=== PATIENT | male | born 1995 | race Caucasian/White ===

== ENCOUNTER 2019-07-29 16:27 | Emergency (ER) | payer SELFPAY ==
--- NOTE | 2019-07-29 17:08 | EKG ---
Test Date: 2019-07-29 Test Time: 16:41:40 Stage Settings Painter: ANDREW MEASUREMENT RESULTS: Intervals: Rate: 54 TN: 146 QRSD: 94 QT: 414 QTc: 392 [place]: P: 28 TN: 146 QRS: 58 T: 54 INTERPRETIVE STATEMENTS: Sinus bradycardia with sinus arrhythmia Otherwise normal ECG Compared to ECG 05/03/2016 06:52:58 Sinus rhythm no longer present Atrial premature complex(es) no longer present Aberrant conduction of supraventricular beat(s) no longer present Electronically Signed On 07-29-19 17:07:22 CDT by Colt Gordon
[2019-07-29 17:41] LABS: Basophils % 1.1 % (0-1.3); Hematocrit 44.8 % (39.6-49.0); Lymphocytes % 29.2 % (15.3-44.8); MPV 8.5 fL (7.6-11.3); RBC Red Blood Cell Count 5.08 M/uL (4.33-5.43)
[2019-07-29 17:42] LABS: Protime INR 1.04
[2019-07-29 18:03] LABS: ALT/SGPT 45 U/L (12-78); AST/SGOT 20 U/L (15-37); Albumin 4.7 g/dL (3.4-5.0); Alkaline Phosphatase 102 U/L (45-117); BUN Blood Urea Nitrogen 11 mg/dL (7-18); Bicarbonate 28 mmol/L (21-32); Bilirubin Direct 0.1 mg/dL (0-0.2); Bilirubin Total 0.4 mg/dL (0.2-1.0); Glucose Level 113 mg/dL (74-106); Magnesium 2.2 mg/dL (1.8-2.4); NT PRO-BNP 8 pg/mL (<125); Potassium 3.5 mmol/L (3.5-5.1); Sodium Level 141 mmol/L (136-145); Troponin (Emerg Dept Use Only) < 0.02 ng/mL (0.0-0.045)
--- NOTE | 2019-07-29 18:05 | RAD REPORT ---
EXAM DESCRIPTION: RAD - Chest Single View - 07/29/2019 5:05 pm CLINICAL HISTORY: Chest pain COMPARISON: None. TECHNIQUE: AP portable chest image was obtained 1700 hours . FINDINGS: Lungs are clear. Heart and vasculature are normal. No measurable pleural effusion and no p neumothorax. No acute bony abnormality seen. No acute aortic findings suspected. IMPRESSION: No acute cardiopulmonary process.
--- NOTE | 2019-07-29 18:26 | EDPHYS ---
Physician Documentation [facility] Name: Ray Malcolm Age: 24 yrs Sex: Male : 1995 Arrival Date: 07/29/2019 Time: 16:31 Bed 25 Private MD: None, None ED Physician Hany Calles HPI: 07/29 18:23 This 24 yrs old Male presents to ER via Ambulatory with complaints of Chest ma2 Pain. 18:23 The patient or guardian reports chest pain that is located primarily in the anterior ma2 chest wall, left. The pain does not radiate. Associated signs and symptoms: Pertinent negatives: cough, dizziness, lower extremity swelling, nausea, shortness of breath, syncope, vomiting. The chest pain is described as aching. Duration: The patient or guardian reports a single episode, constant lasted for 3 days . Severity of pain: At its worst the pain was moderate in the emergency department the pain is unchanged. Historical: - Allergies: 16:39 No Known Allergies; la1 - PMHx: 16:39 None; la1 - Immunization history:: Adult Immunizations up to date. - Social history:: Smoking status: Patient uses tobacco products, smokes one pack cigarettes per day. Patient/guardian denies using alcohol, street drugs, The patient lives with family. - Ebola Screening: : No symptoms or risks identified at this time. - Family history:: not pertinent. ROS: 18:23 Constitutional: Negative for fever, chills, and weight loss. ma2 18:23 All other systems are negative. Exam: 18:23 Constitutional: This is a well developed, well nourished patient who is awake, alert, ma2 and in no acute distress. ENT: Nares patent. No nasal discharge, no septal abnormalities noted. Tympanic membranes are normal and external auditory canals are clear. Oropharynx with no redness, swelling, or masses, exudates, or evidence of obstruction, uvula midline. Mucous membranes moist. Neck: Trachea midline, no thyromegaly or masses palpated, and no cervical lymphadenopathy. Supple, full range of motion without nuchal rigidity, or vertebral point tenderness. No Meningismus. Chest/axilla: reproducible chest pain and tenderness Normal chest wall appearance and motion. Nontender with no deformity. No lesions are appreciated. Cardiovascular: Regular rate and rhythm with a normal S1 and S2. No gallops, murmurs, or rubs. Normal PMI, no JVD. No pulse deficits. Respiratory: Lungs have equal breath sounds bilaterally, clear to auscultation and percussion. No rales, rhonchi or wheezes noted. No increased work of breathing, no retractions or nasal flaring. Abdomen/GI: Soft, non-tender, with normal bowel sounds. No distension or tympany. No guarding or rebound. No evidence of tenderness throughout. Vital Signs: 16:39 BP 138 / 81; Pulse 83; Resp 16; Temp 98.4; Pulse Ox 100% on R/A; Weight 97.52 kg; la1 Height 5 ft. 2 in. (157.48 cm); 17:30 BP 122 / 67; Pulse 72; Resp 18; Pulse Ox 100% on R/A; aj1 18:30 BP 117 / 81; Pulse 68; Resp 18; Pulse Ox 99% on R/A; aj1 16:39 Body Mass Index 39.32 (97.52 kg, 157.48 cm) la1 MDM: 16:42 Patient medically screened. ma2 18:23 Differential diagnosis: anxiety, chest wall pain, gastritis. Data reviewed: vital ma2 signs, nurses notes, diagnostic data from outside facility. Counseling: I had a detailed discussion with the patient and/or guardian regarding: the historical points, exam findings, and any diagnostic results supporting the discharge/admit diagnosis, the presence of at least one elevated blood pressure reading (>120/80) during this emergency department visit, the need for outpatient follow up. 07/29 16:42 Order name: Basic Metabolic Panel; Complete Time: 18:23 ma2 07/29 16:42 Order name: CBC with Diff; Complete Time: 17:56 ma2 07/29 16:42 Order name: LFT's; Complete Time: 18:23 ma2 07/29 16:42 Order name: Magnesium; Complete Time: 18:23 ma2 07/29 16:42 Order name: NT PRO-BNP; Complete Time: 18:23 ma2 07/29 16:42 Order name: PT-INR; Complete Time: 17:56 ma2 07/29 16:42 Order name: Troponin (emerg Dept Use Only); Complete Time: 18:23 ma2 07/29 16:42 Order name: XRAY Chest (1 view); Complete Time: 18:23 ma2 07/29 16:42 Order name: EKG; Complete Time: 16:43 ma2 07/29 16:42 Order name: Cardiac monitoring; Complete Time: 17:24 ma2 07/29 16:42 Order name: EKG - Nurse/Tech; Complete Time: 17:24 ma2 07/29 16:42 Order name: IV Saline Lock; Complete Time: 17:24 ma2 07/29 16:42 Order name: Labs collected and sent; Complete Time: 17:24 ma2 07/29 16:42 Order name: O2 Per Protocol; Complete Time: 17:24 ma2 07/29 16:42 Order name: O2 Sat Monitoring; Complete Time: 17:24 ma2 Administered Medications: No medications were administered Disposition: 07/29/19 18:25 Discharged to Home. Impression: Chest pain, unspecified. - Condition is Stable. - Discharge Instructions: Nonspecific Chest Pain. - Prescriptions for Tylenol- Codeine #3 300-30 mg Oral Tablet - take 2 tablet by ORAL route every 6 hours As needed; 30 tablet. - Work release form, Medication Reconciliation Form, Thank You Letter, Antibiotic Education, Prescription Opioid Use form. - Follow up: Private Physician; When: Tomorrow; Reason: Continuance of care. Signatures: Dispatcher [employer] Merlene Nieves RN RN aj1 Tonio Baron RN RN la1 Hany Calles MD MD ma2 Corrections: (The following items were deleted from the chart) 19:19 18:25 07/29/2019 18:25 Discharged to Home. Impression: Chest pain, unspecified. aj1 Condition is Stable. Forms are Medication Reconciliation Form, Thank You Letter, Antibiotic Education, Prescription Opioid Use. Follow up: Private Physician; When: Tomorrow; Reason: Continuance of care. ma2
--- NOTE | 2019-07-29 18:26 | ER ---
Nurse's Notes [facility] Name: Ray Malcolm Age: 24 yrs Sex: Male : 1995 Arrival Date: 07/29/2019 Time: 16:31 Bed 25 Private MD: None, None Diagnosis: Chest pain, unspecified Presentation: 07/29 16:38 Presenting complaint: Patient states: Dull chest pain since this morning. Transition of la1 care: patient was not received from another setting of care. Onset of symptoms was July 29, 2019. Risk Assessment: Do you want to hurt yourself or someone else? Patient reports no desire to harm self or others. Initial Sepsis Screen: Does the patient meet any 2 criteria? No. Patient's initial sepsis screen is negative. Does the patient have a suspected source of infection? No. Patient's initial sepsis screen is negative. Care prior to arrival: None. 16:38 Method Of Arrival: Ambulatory la1 16:38 Acuity: CJ 3 la1 Historical: - Allergies: 16:39 No Known Allergies; la1 - PMHx: 16:39 None; la1 - Immunization history:: Adult Immunizations up to date. - Social history:: Smoking status: Patient uses tobacco products, smokes one pack cigarettes per day. Patient/guardian denies using alcohol, street drugs, The patient lives with family. - Ebola Screening: : No symptoms or risks identified at this time. - Family history:: not pertinent. Screenin:00 Abuse screen: Denies threats or abuse. Denies injuries from another. Nutritional aj1 screening: No deficits noted. Tuberculosis screening: No symptoms or risk factors identified. 19:18 Fall Risk None identified. aj1 Assessment: 17:00 General: Appears in no apparent distress. comfortable, Behavior is calm, cooperative, aj1 appropriate for age. Pain: Complains of pain in anterior aspect of left upper chest Pain does not radiate. Pain currently is 5 out of 10 on a pain scale. Quality of pain is described as aching, Pain began 4 months ago. Neuro: Level of Consciousness is awake, alert, obeys commands, Oriented to person, place, time, situation. Cardiovascular: Reports chest pain, Patient's skin is warm and dry. Rhythm is sinus rhythm. Respiratory: Airway is patent Respiratory effort is even, unlabored, Respiratory pattern is regular, symmetrical. GI: No signs and/or symptoms were reported involving the gastrointestinal system. : No signs and/or symptoms were reported regarding the genitourinary system. EENT: No signs and/or symptoms were reported regarding the EENT system. Derm: No signs and/or symptoms reported regarding the dermatologic system. Skin is pink, warm \T\ dry. normal. Musculoskeletal: No signs and/or symptoms reported regarding the musculoskeletal system. Circulation, motion, and sensation intact. 18:00 Reassessment: Patient appears in no apparent distress at this time. No changes from aj1 previously documented assessment. Patient and/or family updated on plan of care and expected duration. Pain level reassessed. Patient is alert, oriented x 3, equal unlabored respirations, skin warm/dry/pink. 19:00 Reassessment: Patient appears in no apparent distress at this time. No changes from aj1 previously documented assessment. Patient and/or family updated on plan of care and expected duration. Pain level reassessed. Patient is alert, oriented x 3, equal unlabored respirations, skin warm/dry/pink. Vital Signs: 16:39 BP 138 / 81; Pulse 83; Resp 16; Temp 98.4; Pulse Ox 100% on R/A; Weight 97.52 kg; la1 Height 5 ft. 2 in. (157.48 cm); 17:30 BP 122 / 67; Pulse 72; Resp 18; Pulse Ox 100% on R/A; aj1 18:30 BP 117 / 81; Pulse 68; Resp 18; Pulse Ox 99% on R/A; aj1 16:39 Body Mass Index 39.32 (97.52 kg, 157.48 cm) la1 ED Course: 16:31 Patient arrived in ED. mr 16:31 None, None is Private Physician. mr 16:38 Triage completed. la1 16:39 Arm band placed on left wrist. la1 16:42 Hany Calles MD is Attending Physician. ma2 16:45 Merlene Fry, FERNANDO is Primary Nurse. aj1 16:51 EKG done, by drug abuse technician. reviewed by Hany Calles MD. sm3 17:00 Patient has correct armband on for positive identification. court recording monitor on. Pulse aj1 ox on. NIBP on. 17:00 No provider procedures requiring assistance completed. Inserted saline lock: 20 gauge aj1 in right antecubital area, using aseptic technique. Blood collected. Patient maintains SpO2 saturation greater than 95% on room air. 17:03 XRAY Chest (1 view) In Process Unspecified. EDMS 19:18 IV discontinued, intact, bleeding controlled, No redness/swelling at site. Pressure aj1 dressing applied. Administered Medications: No medications were administered Outcome: 18:25 Discharge ordered by . joe 19:18 Discharged to home ambulatory. aj1 19:18 Condition: good 19:18 Discharge instructions given to patient, Instructed on discharge instructions, follow up and referral plans. no drinking with medication, no driving heavy equipment, medication usage, Demonstrated understanding of instructions, follow-up care, medications, Prescriptions given X 1. 19:19 Patient left the ED. aj1 Signatures: Dispatcher [employer] EDMS Merlene Fry, RN RN autumn1 Chela Barnes, FERNANDO Elizalde RN, Mohammad, MD MD ma2 Fariba Davalos 3
[2019-07-29 19:25] VITALS: TEMP 98.4
[2019-07-29 19:28] VITALS: BP 117/81; O2SAT 99
== END 2019-07-29 19:19 | disposition home or self-care (01) ==
LOC: ER 16:27
DX: R07.9 Chest pain, unspecified (principal); F17.210 Nicotine dependence, cigarettes, uncomplicated
CPT/HCPCS: 36415; 71045; 80048; 80076; 83735; 83880; 84484; 85025; 85610; 93005; 99285

== ENCOUNTER 2019-08-06 01:00 | Emergency (ER) | payer SELFPAY ==
--- NOTE | 2019-08-06 02:08 | EDPHYS ---
Physician Documentation [facility] Name: Ray Malcolm Age: 24 yrs Sex: Male : 1995 Arrival Date: 08/06/2019 Time: 01:02 Bed 6 Private MD: ED Physician Froylan Burgos HPI: 08/06 01:17 This 24 yrs old Male presents to ER via Law Enforcement with complaints of rn Chest Pain. 01:17 The patient or guardian reports chest pain that is located primarily in the anterior rn chest wall, left. The pain does not radiate. Associated signs and symptoms: Pertinent negatives: abdominal pain, cough, diaphoresis, dizziness, headache, palpitations, recent travel, syncope, vomiting. The chest pain is described as sharp, stabbing. Duration: The patient or guardian reports multiple episodes, that are intermittent, the episodes last approximately 5 minute(s). Modifying factors: The symptoms are alleviated by nothing. the symptoms are aggravated by movement, palpation of area. Severity of pain: At its worst the pain was mild in the emergency department the pain has improved. The patient has experienced similar episodes in the past. Reports on and off chest pain for about 8 months, has had multiple cardiac w/u, but does not f/u with cardiology. Today was being arrested on warrants per report, and complained of chest pain. Patient states not sure if hurt himself throwing out large tub by himself or moving sheets of plywood by himself. Denies direct trauma. No fever/cough. Reports sob, but feels like may be because he is upset. No abd pain/vomiting/diarrhea/blood in stool. . Historical: - Allergies: 01:07 No Known Allergies; fc - Home Meds: 01:07 acetaminophen-codeine 300-30 mg Oral tab 1 tab q6hrs prn [Active]; fc - PMHx: 01:07 chest pain; fc - PSHx: 01:07 None; fc - Immunization history:: Last tetanus immunization: up to date Flu vaccine is not up to date. Patient has never been vaccinated. - Social history:: Smoking status: Patient uses tobacco products, smokes two packs cigarettes per day. Patient uses alcohol, occasionally. Patient/guardian denies using street drugs. - Ebola Screening: : Patient negative for fever greater than or equal to 101.5 degrees Fahrenheit, and additional compatible Ebola Virus Disease symptoms Patient denies exposure to infectious person Patient denies travel to an Ebola-affected area in the 21 days before illness onset. - Family history:: pertinent for heart disease. - Hospitalizations: : No recent hospitalization is reported. ROS: 01:17 Constitutional: Negative for fever, chills, and weight loss, Eyes: Negative for injury, rn pain, redness, and discharge, Neck: Negative for injury, pain, and swelling, Cardiovascular: Negative for palpitations, and edema, Respiratory: Negative for shortness of breath, cough, wheezing, and pleuritic chest pain, Abdomen/GI: Negative for abdominal pain, nausea, vomiting, diarrhea, and constipation, Back: Negative for injury and pain, MS/Extremity: Negative for injury and deformity, Skin: Negative for injury, rash, and discoloration, Neuro: Negative for headache, weakness, numbness, tingling, and seizure. Exam: 01:17 Constitutional: This is a well developed, well nourished patient who is awake, alert, rn and in no acute distress. Speaking full sentences and sitting reclined with legs crossed. Head/Face: Normocephalic, atraumatic. Eyes: Pupils equal round and reactive to light, extra-ocular motions intact. Lids and lashes normal. Conjunctiva and sclera are non-icteric and not injected. Cornea within normal limits. Periorbital areas with no swelling, redness, or edema. ENT: MMM Cardiovascular: Regular rate and rhythm with a normal S1 and S2. No gallops, murmurs, or rubs. No pulse deficits. Respiratory: Lungs have equal breath sounds bilaterally, clear to auscultation and percussion. No wheezes noted. No increased work of breathing, no retractions or nasal flaring. Abdomen/GI: soft, non-tender MS/ Extremity: Pulses equal, no cyanosis. Neurovascular intact. Full, normal range of motion. Equal circumference. Neuro: Awake and alert, GCS 15, oriented to person, place, time, and situation. Cranial nerves II-XII grossly intact. Motor strength 5/5 in all extremities. Sensory grossly intact. Cerebellar exam normal. 01:21 ECG was reviewed by the Attending Physician. rn Vital Signs: 01:00 BP 128 / 76; Pulse 92; Resp 18; Temp 99.4(O); Pulse Ox 99% on R/A; Weight 95.25 kg (R); fc Height 5 ft. 7 in. (170.18 cm) (R); Pain 8/10; 02:30 BP 132 / 78; Pulse 90; Resp 16; Pulse Ox 100% on R/A; ao 01:00 Body Mass Index 32.89 (95.25 kg, 170.18 cm) fc MDM: 01:08 Patient medically screened. rn 02:06 Differential diagnosis: anxiety, chest wall pain, costochondritis, pericarditis, rn pleurisy, pneumothorax. Data reviewed: vital signs, nurses notes, EKG, radiologic studies, plain films, and as a result, I will discharge patient. Test interpretation: by ED physician or midlevel provider: ECG, plain radiologic studies, CXR neg for pneumothorax or acute infiltrate. Counseling: I had a detailed discussion with the patient and/or guardian regarding: the historical points, exam findings, and any diagnostic results supporting the discharge/admit diagnosis, radiology results, the need for outpatient follow up, to return to the emergency department if symptoms worsen or persist or if there are any questions or concerns that arise at home. Special discussion: Based on the patient's history, exam, and Dx evaluation, there is no indication for emergent intervention or inpatient Tx. It is understood by the patient/guardian that if the Sx's persist or worsen they need to return immediately for re-evaluation. I discussed with the patient/guardian in detail that at this point there is no indication for admission to the hospital. It is understood, however, that if the symptoms persist or worsen the patient needs to return immediately for re-evaluation. 08/06 01:17 Order name: XRAY Chest (1 view) rn 08/06 01:17 Order name: EKG; Complete Time: rn 08/06 01:17 Order name: EKG - Nurse/Tech; Complete Time: :39 rn EC:21 Rate is 113 beats/min. Rhythm is regular. QRS [place] is Normal. MO interval is normal. rn QRS interval is normal. QT interval is normal. No Q waves. T waves are Normal. No ST changes noted. Clinical impression: Sinus tachycardia. Interpreted by me. Reviewed by me. Administered Medications: 02:35 Not Given (Duplicate Order): TORadol - Ketorolac 15 mg IM once ao 02:35 Drug: TORadol - Ketorolac 15 mg {Note: Verbal order by Dr Burgos to do IV.} Route: IVP; ao Site: right forearm; 02:42 Follow up: Response: No adverse reaction ao Disposition: 08/06/19 02:06 Discharged to Home. Impression: Chest pain, unspecified. - Condition is Stable. - Discharge Instructions: Nonspecific Chest Pain, Pain Without a Known Cause. - Medication Reconciliation Form, Thank You Letter, Antibiotic Education, Prescription Opioid Use form. - Follow up: Private Physician; When: As needed; Reason: Recheck today's complaints, Re-evaluation by your physician. - Problem is an ongoing problem. - Symptoms have improved. Signatures: Dispatcher [employer] EDFatmata London RN RN fc Nieto, Roman, MD MD rn Ortiz, Alex, RN RN ao Corrections: (The following items were deleted from the chart) 02:42 02:06 08/06/2019 02:06 Discharged to Home. Impression: Chest pain, unspecified. ao Condition is Stable. Forms are Medication Reconciliation Form, Thank You Letter, Antibiotic Education, Prescription Opioid Use. Follow up: Private Physician; When: As needed; Reason: Recheck today's complaints, Re-evaluation by your physician. Problem is an ongoing problem. Symptoms have improved. rn
--- NOTE | 2019-08-06 02:08 | ER ---
Nurse's Notes [facility] Name: Ray Malcolm Age: 24 yrs Sex: Male : 1995 Arrival Date: 08/06/2019 Time: 01:02 Bed 6 Private MD: Diagnosis: Chest pain, unspecified Presentation: 08/06 01:00 Presenting complaint: Patient states: that he is having mid center chest pain that fc radiates to left rib area that he noticed when the police showed up to arrest him. Positive for shortness of breath but denies any nausea or vomiting. Transition of care: patient was not received from another setting of care. Onset of symptoms was August 06, 2019 at 00:15. Risk Assessment: Do you want to hurt yourself or someone else? Patient reports no desire to harm self or others. Initial Sepsis Screen: Does the patient meet any 2 criteria? HR > 90 bpm. Yes Does the patient have a suspected source of infection? No. Patient's initial sepsis screen is negative. Care prior to arrival: None. 01:00 Method Of Arrival: Law Enforcement: Abhi GÓMEZ 01:00 Acuity: CJ 3 fc Historical: - Allergies: 01:07 No Known Allergies; fc - Home Meds: 01:07 acetaminophen-codeine 300-30 mg Oral tab 1 tab q6hrs prn [Active]; fc - PMHx: 01:07 chest pain; fc - PSHx: 01:07 None; fc - Immunization history:: Last tetanus immunization: up to date Flu vaccine is not up to date. Patient has never been vaccinated. - Social history:: Smoking status: Patient uses tobacco products, smokes two packs cigarettes per day. Patient uses alcohol, occasionally. Patient/guardian denies using street drugs. - Ebola Screening: : Patient negative for fever greater than or equal to 101.5 degrees Fahrenheit, and additional compatible Ebola Virus Disease symptoms Patient denies exposure to infectious person Patient denies travel to an Ebola-affected area in the 21 days before illness onset. - Family history:: pertinent for heart disease. - Hospitalizations: : No recent hospitalization is reported. Screenin:00 Abuse screen: Denies threats or abuse. Nutritional screening: No deficits noted. fc Tuberculosis screening: No symptoms or risk factors identified. Fall Risk None identified. Assessment: 01:09 General: Appears in no apparent distress. comfortable, well groomed, well developed, ao Behavior is anxious, Smells of alcohol. Pain: Complains of pain in chest Pain does not radiate. Pain currently is 8 out of 10 on a pain scale. Pain began 3 hours ago. Neuro: Level of Consciousness is awake, alert, obeys commands, Oriented to person, place, time, situation, Appropriate for age Moves all extremities. Full function Speech is normal. Cardiovascular: Capillary refill < 3 seconds Patient's skin is warm and dry. Cardiovascular: Reports chest pain. Respiratory: Airway is patent Respiratory effort is even, unlabored, Respiratory pattern is regular, symmetrical. GI: Abdomen is non-distended. : No signs and/or symptoms were reported regarding the genitourinary system. EENT: No signs and/or symptoms were reported regarding the EENT system. Derm: Skin is intact, Skin is pink, warm \T\ dry. normal, Skin temperature is warm. 02:40 Reassessment: DC in custody. Patient agree with POC. DC paper given to military police officer. ao Vital Signs: 01:00 BP 128 / 76; Pulse 92; Resp 18; Temp 99.4(O); Pulse Ox 99% on R/A; Weight 95.25 kg (R); fc Height 5 ft. 7 in. (170.18 cm) (R); Pain 8/10; 02:30 BP 132 / 78; Pulse 90; Resp 16; Pulse Ox 100% on R/A; ao 01:00 Body Mass Index 32.89 (95.25 kg, 170.18 cm) ED Course: 01:00 Arm band placed on Patient placed in an exam room, on a stretcher. fc 01:00 Patient has correct armband on for positive identification. Bed in low position. Call fc light in reach. Side rails up X 1. police at bedside. school bus monitor on. Pulse ox on. NIBP on. 01:00 No provider procedures requiring assistance completed. Patient maintains SpO2 fc saturation greater than 95% on room air. 01:02 Patient arrived in ED. fc 01:06 Triage completed. fc 01:08 Froylan Burgos MD is Attending Physician. rn 01:09 Chacho Marvin RN is Primary Nurse. ao 01:11 Inserted saline lock: 20 gauge in right forearm, using aseptic technique. Blood ao collected. 02:06 XRAY Chest (1 view) In Process Unspecified. EDMS 02:42 intact, bleeding controlled, No redness/swelling at site. Pressure dressing applied. ao Administered Medications: 02:35 Not Given (Duplicate Order): TORadol - Ketorolac 15 mg IM once ao 02:35 Drug: TORadol - Ketorolac 15 mg {Note: Verbal order by Dr Burgos to do IV.} Route: IVP; ao Site: right forearm; 02:42 Follow up: Response: No adverse reaction ao Outcome: 02:06 Discharge ordered by . rn 02:41 Discharged to home ambulatory. ao 02:41 Condition: stable 02:41 Discharge instructions given to patient, Instructed on discharge instructions, follow up and referral plans. Demonstrated understanding of instructions, follow-up care, medications. 02:42 Patient left the ED. ao Signatures: Dispatcher [employer] EDMS Fatmata Willingham RN RN fc Nieto, Roman, MD MD rn Ortiz, Alex, RN RN ao
[2019-08-06] MEDS ORDERED: KETOROLAC 30 MG/ML INJ ONE (02:26)
[2019-08-06 02:48] VITALS: TEMP 99.4
[2019-08-06 02:49] VITALS: BP 132/78; O2SAT 100
--- NOTE | 2019-08-06 08:33 | RAD REPORT ---
EXAM DESCRIPTION: Meli Single View08/06/2019 2:05 am CLINICAL HISTORY: Chest pain COMPARISON: July 29, 2019 FINDINGS: The lungs appear clear of acute infiltrate. The heart is normal size IMPRESSION: No acute abnormalities displayed
--- NOTE | 2019-08-06 09:34 | EKG ---
Test Date: 2019-08-06 Test Time: 01:01:40 [employer]: NAWAF MEASUREMENT RESULTS: Intervals: Rate: 113 AL: 160 QRSD: 92 QT: 334 QTc: 458 [place]: P: 45 AL: 160 QRS: 72 T: 51 INTERPRETIVE STATEMENTS: Sinus tachycardia Otherwise normal ECG Compared to ECG 07/29/2019 16:41:40 Sinus bradycardia no longer present Sinus arrhythmia no longer present Electronically Signed On 08-06-19 09:33:33 CDT by Colt Gordon
== END 2019-08-06 02:42 | disposition home or self-care (01) ==
LOC: ER 01:00
DX: R07.9 Chest pain, unspecified (principal); F17.210 Nicotine dependence, cigarettes, uncomplicated
CPT/HCPCS: 71045; 93005; 96374; 99285

== ENCOUNTER 2021-08-15 17:33 | Emergency (ER) | payer SELFPAY ==
--- NOTE | 2021-08-15 18:41 | RAD REPORT ---
EXAM DESCRIPTION: RAD - Ankle Left 3 View -08/15/2021 6:34 pm CLINICAL HISTORY: Left ankle pain status post injury FINDINGS: No fracture or dislocation is seen.
--- NOTE | 2021-08-15 19:06 | EDPHYS ---
Physician Documentation [facility] Name: Ray Malcolm Age: 26 yrs Sex: Male : 1995 Arrival Date: 08/15/2021 Time: 17:35 Bed 12 Private MD: ED Physician Aurora Casper HPI: 08/15 18:50 This 26 yrs old Male presents to ER via Ambulatory with complaints of Fall jmm Injury, Ankle Injury. 18:50 Details of fall: The patient fell from a height, off a roof. Onset: The jmm symptoms/episode began/occurred acutely. Associated injuries: The patient sustained left ankle. The patient has experienced a previous episode. Patient states he landed on his feet. Pain radiates up the left lower leg. Historical: - Allergies: 17:48 No Known Allergies; aa5 - PMHx: 17:48 None; aa5 - Immunization history:: Client reports receiving the 2nd dose of the Covid vaccine. - Social history:: Smoking status: Patient reports the use of cigarette tobacco products, denies chronic smoking, but will smoke occasionally. - Immunization history: Last tetanus immunization: unknown. ROS: 18:50 Constitutional: Negative for fever, chills, and weight loss, Cardiovascular: Negative jmm for chest pain, palpitations, and edema, Respiratory: Negative for shortness of breath, cough, wheezing, and pleuritic chest pain. 18:50 MS/extremity: Positive for injury or acute deformity, pain. 18:50 All other systems are negative. Exam: 18:50 Constitutional: This is a well developed, well nourished patient who is awake, alert, jmm and in no acute distress. Head/Face: atraumatic. Eyes: EOMI, no conjunctival erythema appreciated ENT: Moist Mucus Membranes Neck: Trachea midline, Supple Chest/axilla: Normal chest wall appearance and motion. Cardiovascular: Regular rate and rhythm. No edema appreciated Respiratory: Normal respirations, no respiratory distress appreciated Abdomen/GI: Non distended, soft Back: Normal ROM Skin: General appearance color normal 18:50 Musculoskeletal/extremity: left lower lateral malleolar ttp, compartments are soft, full dorsalis pulse, NVI. 18:50 Skin: Appearance: Color: normal in color. 18:50 Neuro: Orientation: is normal, Mentation: is normal, Memory: is normal. 18:50 Psych: Behavior/mood is pleasant, cooperative. Vital Signs: 17:43 BP 144 / 115; Pulse 98; Resp 18 S; Temp 97.6(TE); Pulse Ox 99% on R/A; Weight 95.71 kg aa5 (R); Height 5 ft. 7 in. (170.18 cm) (R); 19:16 BP 136 / 90; Pulse 97; Resp 16; Pulse Ox 100% ; vg1 17:43 Body Mass Index 33.05 (95.71 kg, 170.18 cm) aa5 Stefefn Coma Score: 17:51 Eye Response: spontaneous(4). Verbal Response: oriented(5). Motor Response: obeys jt3 commands(6). Total: 15. Trauma Score (Adult): 17:51 Eye Response: spontaneous(1); Verbal Response: oriented(1); Motor Response: obeys jt3 commands(2); Systolic BP: > 89 mm Hg(4); Respiratory Rate: 10 to 29 per min(4); Clio Score: 15; Trauma Score: 12 MDM: 17:54 Patient medically screened. [facility] 19:05 Data reviewed: vital signs, nurses notes. Counseling: I had a detailed discussion with carmencita the patient and/or guardian regarding: the historical points, exam findings, and any diagnostic results supporting the discharge/admit diagnosis, radiology results, the need for outpatient follow up, to return to the emergency department if symptoms worsen or persist or if there are any questions or concerns that arise at home. 08/15 17:54 Order name: Ankle Left 3 View XRAY; Complete Time: 18:43 [facility] 08/15 18:44 Order name: Keyur wrap-joint; Complete Time: 18:50 [facility] Administered Medications: No medications were administered Disposition: 08/16 08:54 Co-signature as Attending Physician, Aurora Casper MD I agree with the assessment and sp3 plan of care. Disposition Summary: 08/15/21 19:06 Discharge Ordered Location: Home [facility] Condition: Stable [facility] Diagnosis - Sprain of ankle [facility] Followup: [facility] - With: Private Physician - When: 2 - 3 days - Reason: Recheck today's complaints, Continuance of care, Re-evaluation by your physician Discharge Instructions: - Discharge Summary Sheet [facility] - Ankle Sprain [facility] Forms: - Medication Reconciliation Form jmm - Thank You Letter jmm - Antibiotic Education jmm - Prescription Opioid Use carmencita Signatures: Dispatcher [employer] Shade Herbert PA PA jmm Calderon, Audri, RN RN aa5 Aurora Casper MD MD sp3 Tony Woodall RN RN jt3 Corrections: (The following items were deleted from the chart) 08/15 17:48 17:48 PMHx: chest pain; hua stacy5
--- NOTE | 2021-08-15 19:06 | ER ---
Nurse's Notes [facility] Name: Ray Malcolm Age: 26 yrs Sex: Male : 1995 Arrival Date: 08/15/2021 Time: 17:35 Bed 12 Private MD: Diagnosis: Sprain of ankle Presentation: 08/15 17:43 Chief complaint: Patient states: fell off roof this morning, approximately 10-12 ft. Pt aa5 states "I just hurt my left ankle". Denies LOC, denies head injury. 17:43 Coronavirus screen: At this time, the client does not indicate any symptoms associated aa5 with coronavirus-19. Ebola Screen: No symptoms or risks identified at this time. Initial Sepsis Screen: Does the patient meet any 2 criteria? HR > 90 bpm. Does the patient have a suspected source of infection? No. Patient's initial sepsis screen is negative. Risk Assessment: Do you want to hurt yourself or someone else? Patient reports no desire to harm self or others. Onset of symptoms was July 2021. 17:43 Acuity: CJ 3 aa5 17:43 Method Of Arrival: Ambulatory aa5 17:43 Care prior to arrival: None. Mechanism of Injury: Fall from roof. aa5 17:51 Trauma event details: Injury occurred: August 15, 2021. jt3 Historical: - Allergies: 17:48 No Known Allergies; aa5 - PMHx: 17:48 None; aa5 - Immunization history:: Client reports receiving the 2nd dose of the Covid vaccine. - Social history:: Smoking status: Patient reports the use of cigarette tobacco products, denies chronic smoking, but will smoke occasionally. - Immunization history: Last tetanus immunization: unknown. Screenin:51 Abuse screen: Denies threats or abuse. Denies injuries from another. Tuberculosis jt3 screening: No symptoms or risk factors identified. Primary Survey: 17:51 NO uncontrolled hemorrhage observed. A: Airway: patent. Breathing/Chest: Respiratory jt3 pattern: regular. Circulation: Skin temperature: warm. Disability Alert. Exposure/Environment: There is no evidence of uncontrolled external bleeding. No obvious injuries are noted at this time. Assessment: 17:51 General: Appears in no apparent distress. Behavior is cooperative. Pain: Complains of jt3 pain in left foot Pain currently is 6 out of 10 on a pain scale. Musculoskeletal: Reports pain in left foot Patient reports left ankle pain with movement. Swelling present to left ankle. Denies numbness/tingling at this time. 18:55 Reassessment: URBANO wrap applied to left ankle. . jt3 19:16 Reassessment: Patient appears in no apparent distress at this time. No changes from vg1 previously documented assessment. Patient and/or family updated on plan of care and expected duration. Pain level reassessed. Patient is alert, oriented x 3, equal unlabored respirations, skin warm/dry/pink. Vital Signs: 17:43 BP 144 / 115; Pulse 98; Resp 18 S; Temp 97.6(TE); Pulse Ox 99% on R/A; Weight 95.71 kg aa5 (R); Height 5 ft. 7 in. (170.18 cm) (R); 19:16 BP 136 / 90; Pulse 97; Resp 16; Pulse Ox 100% ; vg1 17:43 Body Mass Index 33.05 (95.71 kg, 170.18 cm) aa5 Emerson Coma Score: 17:51 Eye Response: spontaneous(4). Verbal Response: oriented(5). Motor Response: obeys jt3 commands(6). Total: 15. Trauma Score (Adult): 17:51 Eye Response: spontaneous(1); Verbal Response: oriented(1); Motor Response: obeys jt3 commands(2); Systolic BP: > 89 mm Hg(4); Respiratory Rate: 10 to 29 per min(4); Steffen Score: 15; Trauma Score: 12 ED Course: 17:35 Patient arrived in ED. as 17:36 Shade Matias PA is PHCP. [facility] 17:36 Aurora Casper MD is Attending Physician. jmm 17:43 Arm band placed on Patient placed in an exam room, on a stretcher. aa5 17:48 Triage completed. aa5 17:51 Tony Woodall, FERNANDO is Primary Nurse. jt3 17:51 Patient has correct armband on for positive identification. Call light in reach. jt3 17:51 Patient maintains SpO2 saturation greater than 95% on room air. jt3 18:34 Ankle Left 3 View XRAY In Process Unspecified. EDMS 19:16 No provider procedures requiring assistance completed. Patient did not have IV access vg1 during this emergency room visit. Administered Medications: No medications were administered Intake: 17:51 PO: 0ml; IV: 0ml; Total: 0ml. jt3 Output: 17:51 Urine: 0ml; Total: 0ml. jt3 Outcome: 19:06 Discharge ordered by . andrzej 19:16 Discharged to home ambulatory. vg1 19:16 Condition: stable 19:16 Discharge instructions given to patient, Instructed on discharge instructions, follow up and referral plans. Demonstrated understanding of instructions, follow-up care. 19:17 Patient left the ED. vg1 Signatures: Dispatcher [employer] EDMS Shade Matias PA PA jmm Martinez, Amelia as Calderon, Audri, RN RN aa5 Meri Chaudhary RN RN vg1 Tony Woodall RN RN jt3 Corrections: (The following items were deleted from the chart) 17:48 17:48 PMHx: chest pain; aa5 aa5
[2021-08-15 19:28] VITALS: TEMP 97.6
[2021-08-15 19:29] VITALS: BP 136/90; O2SAT 100
== END 2021-08-15 19:17 | disposition home or self-care (01) ==
LOC: ER 17:33
DX: S93.402A Sprain of unspecified ligament of left ankle, initial encounter (principal); W13.2XXA Fall from, out of or through roof, initial encounter; Y93.9 Activity, unspecified; Y92.019 Unspecified place in single-family (private) house as the place of occurrence of the external cause
CPT/HCPCS: 99284

== ENCOUNTER 2021-12-02 20:57 | Emergency (ER) | payer SELFPAY ==
--- OUTSIDE RECORDS SUMMARY | 2021-12-02 21:01 | XMS REPORT | Continuity of Care Document ---
:1995 Author Organization [facility] t Address [address] [place] [address] Care Team Providers Name Role Phone Winter LYNN Attending Clinician Payers Payer Name Policy Type Policy Number Effective Date Expiration Date S ource Problems Condition Condition Condition Status Onset Resolution Last Treating Co mments Source Name Details Category Date Date Treatment Clinician Date No known No known Disease Unive rs active active ity of problems problems [facility] Allergies, Adverse Reactions, Alerts Allergy Allergy Status Severity Reaction(s) Onset Inactive Treating Comm ents Source Name Type Date Date Clinician No Known DA Active [facility] 03-02 [facility] Social History Social Habit Start Date Stop Date Quantity Comments Source Sex Assigned At Uni versity [facility] Smoking Status Start Date Stop Date Source Unknown if ever smoked Universit y [facility] Medications Ordered Filled Start Stop Current Ordering Indication Dosage Frequency Signature Comments Components Source Medication Medication Date Date Medication? Clinician (SIG) Name Name hydrocortis 2019- 2019- No [id number] Insert Univers one 2.5 % 06-28 into ity of rectal 00:00: 04:59 rectum 2 [place] cream 00 :00 (two) Medical times Branch daily for 14 days. sulfamethox Yes 1{tbl} Take 1 Tab Univers azole-trime 1-27 by mouth ity of thoprim 00:00: every 12 [place] (BACTRIM 00 (twelve) Medical DS) 800-160 hours. Branch mg per tablet albuterol 2015-0 Yes 2{puff} Inhale 2 U nivers (PROAIR 1-27 Puffs ity of HFA) 90 00:00: every 6 [place] mcg/actuati 00 (six) Medical on inhaler hours as Branc h needed for Wheezing or Shortness of Breath. proMETHazin 2015- Yes 12.5mg Take 0.5 Univers e 1-27 Tabs by ity of (PHENERGAN) 00:00: mouth [place] 25 mg 00 every 6 Medical tablet (six) Branch hours as needed for Nausea and Vomiting (N/V). Vital Signs Vital Name Observation Time Observation Value Comments Source Systolic blood 2019-06-28 19:25:00 129 mm[Hg] [facility] Diastolic blood 2019-06-28 19:25:00 71 [facility]Hg[facility] Heart rate 2019-06-28 19:25:00 74 /min [facility] Body temperature 2019-06-28 19:25:00 36.78 Bre [facility] Respiratory rate 2019-06-28 19:25:00 18 /min [facility] Body height 2019-06-28 19:25:00 170.2 cm [facility] Body weight 2019-06-28 19:25:00 90.719 kg [facility] BMI 2019-06-28 19:25:00 31.32 kg/m2 [facility] Oxygen saturation in 2019-06-28 19:25:00 100 /min [facility] Arterial blood by [facility] Pulse oximetry Branch Procedures Procedure Date / Time Performed Performing Clinician Sour e NOTICE OF PRIVACY 2019-06-28 19:14:11 Doctor Unassigned, No Univ [facility] PRACTICES Name Medical Branch CONSENT/REFUSAL FOR 2019-06-28 19:13:52 [facility], [facility] [place] [facility] AND Name Medical Branch TREATMENT Encounters Start End Encounter Admission Attending Care Care Encounter Source Date/Time Date/Time Type Type Clinicians Facility Department ID 2019-06-28 2019-06-28 Emergency [facility] [id number] [facility] 14:27:25 15:46:00 Hilda Weaver [id number] [facility] [id number] [facility] [id number] [facility] 084 Branch Results Test Description Test Time Test Comments Results Result Comments Source - XR CHEST 1 V 2019-04-11 FAX: 23:03:00 Addison Kim MD [phone] [facility]: St: REG Name: BJORN TESFAYEAPRIL [facility] : 1995 Age/S: 23/M [address] [facility] Unit #: [id number] Loc: [place], [place] Phys: [place] [id number] Acct: [id number] Dis Date: Status: REG ER PHONE #: [phone] Exam Date: 04/11/2019 2251 FAX #: [phone] Reason: chest pain EXAMS: CPT CODE: [id number] XR CHEST 1 V 08431 AFTER HOURS SERVICE ON: 04/11/2019 11:02 PM AP Portable Chest Location Code M12 HISTORY: chest pain FINDINGS: There are no infiltrates. There are no pleural effusions. There is no pneumothorax. Cardiac silhouette and mediastinum appear within normal limits. IMPRESSION: No active pulmonary findings. at 2303 Reported and signed by: Hany Arcos M.D. CC: Addison Kim MD Technologist: ELIGIO CARO Trnscrd Date/Time/By: 04/11/2019 (3171) : By: [email or web address] PAGE 1 Signed Report FAX: Addisno Kim MD [phone] [facility]: St: REG Name: BJORN TESFAYE [facility] : 1995 Age/S: 23/M [address] [employer] [employer] Unit #: [id number] Loc: [place], [place]: [place] [id number] Acct: [id number] Dis Date: Status: REG ER PHONE #: [phone] Exam Date: 04/11/2019 2258 FAX #: [phone] Reason: chest pain EXAMS: CPT CODE: [id number] XR CHEST 1 V 54764 <Continued> Orig Print D/T: S: 04/11/2019 (4319) PAGE 2 Signed Report COMPREHENSIVE METABOLIC PANEL 2019-04-11 22:52:00 Test Item Value Reference Range Interpretation Comme nts SODIUM (test code = NA) 137 mmol/l 134.0-147.0 N POTASSIUM (test code = K) 3.6 mmol/L 3.6-5.2 N CHLORIDE (test code = CL) 100 mmol/l 98.0-107.0 N CARBON DIOXIDE (test code = CO2) 29.6 mmol/l 21.0-33.0 N ANION GAP (test code = GAP) 11.0 0-20 N GLUCOSE (test code = GLU) 78 mg/dl 70.0-110.0 N BLOOD UREA NITROGEN (test code = BUN) 10 mg/dl 7.0-18.0 N CREATININE (test code = CREAT) 1.09 mg/dL 0.60-1.30 N GFR NON BLACK (test code = GFRNONBLACK) 89 mL/min 110-120 L GFR BLACK (test code = GFRBLACK) 108 mL/min 133-145 L TOTAL PROTEIN (test code = PROT) 7.6 gm/dL 6.4-8.2 N ALBUMIN (test code = ALB) 4.1 gm/dl 3.2-4.7 N CALCIUM (test code = CA) 8.7 mg/dl 8.0-10.5 N BILIRUBIN TOTAL (test code = BILT) 0.4 mg/dl 0.0-1.0 N SGOT/AST (test code = AST) 26 Units/L 15.0-37.0 N SGPT/ALT (test code = ALT) 59 Units/L 12.0-78.0 N ALKALINE PHOSPHATASE TOTAL (test code = ALKP) 94 Units/L 50.0-136 .0 N THYROID STIMULATING [id number] 22:52:00 Test Item Value Reference Range Interpretation Comments THYROID STIMULATING 2.13 IU/ML 0.47-5.01 N Result i s in HORMONE (test code = Interna tional TSH) Units/millilite r [id number] 22:52:00 Test Item Value Reference Range Interpretation Comments TROPONIN-I (test <0.02 NG/ML 0.00-0.06 N REFERENCE R SHANTI code = TROPI) TROPONIN I HEA LTHY INDIVIDUALS: < 0.06 ng/mL R/O ISCHE ARCELIA: 0.07 - 0.60 ng/ mL CUT-OFF RANGE F OR AMI: 0.60 - 1.5 ng/m L PROTHROMBIN [id number] 22:50:00 Test Item Value Reference Range Interpretation Comments PROTHROMBIN TIME 13.0 SECONDS 9.9-12.8 H PATIENT (test code = PTP) INTERNATIONAL NORMAL 1.1 0.89-1.14 N THE INR IS TO BE USED RATIO (test code = ONLY FOR MONITORING INR) ORAL ANTICOAGULANTTH ERAPY. THE FOLLOWING A RE SUGGESTED RANGE S FROM [facility] LEGE OF CHEST PHYSICIANS:KASSIDY CATION INR VALUEPROPHYLAXI S OF VENOUS THROMBOS IS (ORTHOPEDIC KYLER MILDRED) 2.0 - 3.0PROP HYLAXIS OF VENOUS THROM BOSIS (OTHER THAN HIG H-RISK SURGERY) 2.0 - 3.0TRE ATMENT OF DEEP VEIN THROMBOSIS OR PULMONARY EMBOL ISM 2.0 - 3.0PREV ENTION OF SYSTEMIC EMB OLISM TISSUE HEART VA LVES 2.0 - 3.0 AC TERE MYOCARDIAL INFA RCTION (TO PREVENT SYSTEMIC EMBOLI SM) 2.0 - 3.0 ACUTE MYOCARDIA L INFARCTION (TO PREVENT RECURRE NT INFARCT) 2.5 - 3.0 VALV ULAR HEART DISEASE 2.0 - 3.0 ATRIAL FIBRILATION 2.0 - 3.0BILEAFLET MECHANICAL VALV E IN AORTIC POSITION 2.0 - 3.0MECHAN ICAL PROSTHETIC VALV ES (HIGH RISK) 2.5 - 3.5PRESEN CE OF LUPUS ANTICOAGU LANT OR ANTIPHOSPHOLIP ID ANTIBODIES 2.5 - 3 .5 SPECIMEN 4+ HEMOLYSISD-[id number] 22:50:00 Test Item Value Reference Range Interpretation Comments D-DIMER/FSP (test 208 ng/mL 200.0-230.0 N Pe r veterans contact representative code = DDIMER) recommendatio n, the CUT OFFfor the Diagnosis of PE or DVT with a 100% SENSITIV ITY &100% PREDICTIVE VALU E is suggested to be 230 ng/mL D-DIMERUNIT(DDU ). D-DIMER RESULTS MAY BE AFFECTED BY:1. HEMOGLOBI N > 100 mg/dL2. BILIRUB IN > 10 mg/dL3. TRIGLYC ERIDES > 1500 mg/dL4. Th e presence of RHEUMATIOID FACTOR may produce an ov erestimation of the test res ult. SPECIMEN 4+ HEMOLYSISCBC W/AUTO [id number] 22:30:00 Test Item Value Reference Range Interpretation Comments WHITE BLOOD CELL (test code = 12.5 K/mm3 4.5-11.0 H WBC) RED BLOOD CELL (test code = 4.62 M/mm3 4.40-5.90 N RBC) HEMOGLOBIN (test code = HGB) 14.0 gm/dL 13.0-17.0 N HEMATOCRIT (test code = HCT) 41.5 % 36.0-48.0 N MEAN CELL VOLUME (test code = 89.8 UM3 80.0-94.0 N MCV) MEAN CELL HGB (test code = MCH) 30.3 UUG 25.5-32.5 N MEAN CELL HGB CONCETRATION 33.7 gm/dL 29.0-35.5 N (test code = MCHC) RED CELL DISTRIBUTION WIDTH 12.1 % 11.5-15.0 N (test code = RDW) RED CELL DISTRIBUTION WIDTH SD 39.5 fL 34.8-50.2 N (test code = RDW-SD) PLATELET COUNT (test code = 299 K/mm3 150-400 N PLT) MEAN PLATELET VOLUME (test code 10.0 fl 7.4-10.4 N = MPV) NEUTROPHIL % (test code = NT%) 86.5 % 49.0-76.0 H IMMATURE GRANULOCYTE % (test 0.3 % 0.0-0.4 N code = IG%) LYMPHOCYTE % (test code = LY%) 7.4 % 23.0-38.0 L MONOCYTE % (test code = MO%) 4.7 % 1.0-10.0 N EOSINOPHIL % (test code = EO%) 0.8 % 1.0-5.0 L BASOPHIL % (test code = BA%) 0.3 % 0.0-1.0 N NEUTROPHIL # (test code = NT#) 10.8 K/mm3 2.4-6.3 H IMMATURE GRANULOCYTE # (test 0.04 x10 3/uL 0.00-0.07 N code = IG#) LYMPHOCYTE # (test code = LY#) 0.9 K/mm3 1.2-4.0 L MONOCYTE # (test code = MO#) 0.6 K/mm3 0.0-0.6 N EOSINOPHIL # (test code = EO#) 0.1 K/MM3 0.0-0.7 N BASOPHIL # (test code = BA#) 0.0 K/mm3 0.0-0.2 N - XR CHEST 1 [id number] 00:04:00 FAX: Tracey Allen NP [phone] [facility]: St: REG Name: BRIENBJORNATIF LONDONO [facility] : 1995 Age/S: 23/M [address] [facility] Unit#: [id number] Loc: [place], [place]: [place] [address] Acct: [id number] Dis Date: Status: REG ER PHONE #: [phone] Exam Date: 03/02/2019 2345 FAX #: [phone] Reason: CHEST PAIN EXAMS: CPT CODE: [id number] XR CHEST 1 V 09016 EXAM: - XR CHEST 1 V HISTORY: Chest pain. COMPARISON: None available time of interpretation. FINDINGS: Single AP view of the chest is provided. Heart size and vascularity are within normal limits. The lungs are clear of focal consolidation. No effusion, pneumothorax, or acute osseous abnormality. IMPRESSION: No radiographic evidence of acute cardiopulmonary process. at 0004 Reported and signed by: Levon Thomas M.D. CC: Tracey Allen NP Technologist: NIKOLAI HARRISON [facility] Date/Time/By: 03/03/2019 (0004) : By: [email or web address] PAGE 1 Signed Report FAX: Tracye Allen NP [phone] [facility]: St: REG Name: BRIENBJORN SPRING [facility] : 1995 Age/S: 23/M [address] [facility] Unit #: [id number] Loc: [place], [place]: [place] [address] Acct: [id number] Dis Date: Status: REG ER PHONE #: [phone] Exam Date: 03/02/2019 2342 FAX #: [phone] Reason: CHEST PAIN EXAMS: CPT CODE: [id number] XR CHEST 1 V [id number] <Continued> Orig Print D/T: S: 03/03/2019 (0007) PAGE 2 Signed Report COMPREHENSIVE METABOLIC [id number] 00:02:00 Test Item Value Reference Range Interpretation Comments SODIUM (test code = NA) 139 mmol/l 134.0-147.0 N POTASSIUM (test code = K) 3.9 mmol/L 3.6-5.2 N CHLORIDE (test code = CL) 104 mmol/l 98.0-107.0 N CARBON DIOXIDE (test code = CO2) 28.7 mmol/l 21.0-33.0 N ANION GAP (test code = GAP) 10.2 0-20 N GLUCOSE (test code = GLU) 104 mg/dl 70.0-110.0 N BLOOD UREA NITROGEN (test code = 12 mg/dl 7.0-18.0 N BUN) CREATININE (test code = CREAT) 1.01 mg/dL 0.60-1.30 N GFR NON BLACK (test code = 97 mL/min 110-120 L GFRNONBLACK) GFR BLACK (test code = GFRBLACK) 118 mL/min 133-145 L TOTAL PROTEIN (test code = PROT) 6.9 GM/DL 6.0-8.1 N ALBUMIN (test code = ALB) 3.8 gm/dL 3.2-4.7 N CALCIUM (test code = CA) 9.0 mg/dl 8.0-10.5 N BILIRUBIN TOTAL (test code = 0.1 mg/dl 0.0-1.0 N BILT) SGOT/AST (test code = AST) 18 Units/L 15.0-37.0 N SGPT/ALT (test code = ALT) 48 Units/L 12.0-78.0 N ALKALINE PHOSPHATASE TOTAL (test 100 Units/L 50.0-136.0 N code = ALKP) CARDIAC ENZYMES [id number] 00:02:00 Test Item Value Reference Range Interpretation Comments CREATINE KINASE (CK) 145 Units/L 39-308 N (test code = CK) TROPONIN-I (test code <0.02 NG/ML 0.00-0.06 N REFERE NCE RANGE = TROPI) TROPONIN I HEAL THY INDIVIDUALS: < 0.06 ng/mL R/O ISCHE ARCELIA: 0.07 - 0.60 ng/ mL CUT-OFF RANGE F OR AMI: 0.60 - 1. 5 ng/mL PROTHROMBIN [id number] 23:55:00 Test Item Value Reference Range Interpretation Comments PROTHROMBIN TIME 11.1 SECONDS 9.9-12.8 N PATIENT (test code = PTP) INTERNATIONAL NORMAL 0.9 0.89-1.14 N THE INR IS TO BE USED RATIO (test code = ONLY FOR MONITORING INR) ORAL ANTICOAGULANTTH ERAPY. THE FOLLOWING A RE SUGGESTED RANGE S FROM [facility] LEGE OF CHEST PHYSICIANS:KASSIDY CATION INR VALUEPROPHYLAXI S OF VENOUS THROMBOS IS (ORTHOPEDIC KYLER MILDRED) 2.0 - 3.0PROP HYLAXIS OF VENOUS THROM BOSIS (OTHER THAN HIG H-RISK SURGERY) 2.0 - 3.0TRE ATMENT OF DEEP VEIN THROMBOSIS OR PULMONARY EMBOL ISM 2.0 - 3.0PREV ENTION OF SYSTEMIC EMB OLISM TISSUE HEART VA LVES 2.0 - 3.0 AC TERE MYOCARDIAL INFA RCTION (TO PREVENT SYSTEMIC EMBOLI SM) 2.0 - 3.0 ACUTE MYOCARDIA L INFARCTION (TO PREVENT RECURRE NT INFARCT) 2.5 - 3.0 VALV ULAR HEART DISEASE 2.0 - 3.0 ATRIAL FIBRILATION 2.0 - 3.0BILEAFLET MECHANICAL VALV E IN AORTIC POSITION 2.0 - 3.0MECHAN ICAL PROSTHETIC VALV ES (HIGH RISK) 2.5 - 3.5PRESEN CE OF LUPUS ANTICOAGU LANT OR ANTIPHOSPHOLIP ID ANTIBODIES 2.5 - 3 .5 THROMBOPLASTIN TIME [id number] 23:55:00 Test Item Value Reference Range Interpretation Comments THROMBOPLASTIN TIME 31.20 SECONDS 25.86-36.07 N [facility] PARTIAL (test code = Therape utic Range - PTT) APTT of 55.8-85 .4 secondscorrelat es with plasma heparin concentration o f 0.2-0.4 u/mL Ne w range effective - TROPONIN I [id number] 23:53:00 Test Item Value Reference Range Interpretation Comments TROPONIN I RAPID 0.00 0.00-0.08 N Negati ve: <= 0.08 (test code = Positive: > = 0.09An TROPIRAP) elevated tropon in value alone is not sufficie nt todiagnose a myocardial infa rction. Rather, the patient'scl inical presentation (h istory, physical exam) and ECGshould be used in conj unction with troponin in the diagnostic evaluation of s uspected myocardial infa rction.A serial sampling protoc ol is recommended to facilitatethe identification of temporal changes in trop onin levelscharacter istic of DC. COMPREHENSIVE METABOLIC [id number] 23:53:00 Test Item Value Reference Range Interpretation Comments SODIUM (test code = NA) 139 mmol/l 134.0-147.0 N POTASSIUM (test code = K) 3.9 mmol/L 3.6-5.2 N CHLORIDE (test code = CL) 104 mmol/l 98.0-107.0 N CARBON DIOXIDE (test code = CO2) 28.7 mmol/l 21.0-33.0 N ANION GAP (test code = GAP) 10.2 0-20 N GLUCOSE (test code = GLU) mg/dl 70.0-110.0 BLOOD UREA NITROGEN (test code = mg/dl 7.0-18.0 BUN) CREATININE (test code = CREAT) mg/dL 0.60-1.30 GFR NON BLACK (test code = mL/min 110-120 GFRNONBLACK) GFR BLACK (test code = GFRBLACK) mL/min 133-145 TOTAL PROTEIN (test code = PROT) gm/dL 6.4-8.2 ALBUMIN (test code = ALB) gm/dl 3.2-4.7 CALCIUM (test code = CA) mg/dl 8.0-10.5 BILIRUBIN TOTAL (test code = mg/dl 0.0-1.0 BILT) SGOT/AST (test code = AST) Units/L 15.0-37.0 SGPT/ALT (test code = ALT) Units/L 12.0-78.0 ALKALINE PHOSPHATASE TOTAL (test Units/L 50.0-136.0 code = ALKP) CARDIAC ENZYMES [id number] 23:53:00 Test Item Value Reference Range Interpretation Comments CREATINE KINASE (CK) (test code = Units/L 39-308 CK) TROPONIN-I (test code = TROPI) NG/ML 0.00-0.06 CBC W/AUTO [id number] 23:50:00 Test Item Value Reference Range Interpretation Comments WHITE BLOOD CELL (test code = 9.9 K/mm3 4.5-11.0 N WBC) RED BLOOD CELL (test code = 4.58 M/mm3 4.40-5.90 N RBC) HEMOGLOBIN (test code = HGB) 13.8 gm/dL 13.0-17.0 N HEMATOCRIT (test code = HCT) 41.0 % 36.0-48.0 N MEAN CELL VOLUME (test code = 89.5 UM3 80.0-94.0 N MCV) MEAN CELL HGB (test code = MCH) 30.1 UUG 25.5-32.5 N MEAN CELL HGB CONCETRATION 33.7 gm/dL 29.0-35.5 N (test code = MCHC) RED CELL DISTRIBUTION WIDTH 11.9 % 11.5-15.0 N (test code = RDW) RED CELL DISTRIBUTION WIDTH SD 38.7 fL 34.8-50.2 N (test code = RDW-SD) PLATELET COUNT (test code = 298 K/mm3 150-400 N PLT) MEAN PLATELET VOLUME (test code 9.8 fl 7.4-10.4 N = MPV) NEUTROPHIL % (test code = NT%) 58.6 % 49.0-76.0 N IMMATURE GRANULOCYTE % (test 0.2 % 0.0-0.4 N code = IG%) LYMPHOCYTE % (test code = LY%) 31.4 % 23.0-38.0 N MONOCYTE % (test code = MO%) 6.3 % 1.0-10.0 N EOSINOPHIL % (test code = EO%) 3.0 % 1.0-5.0 N BASOPHIL % (test code = BA%) 0.5 % 0.0-1.0 N NEUTROPHIL # (test code = NT#) 5.8 K/mm3 2.4-6.3 N IMMATURE GRANULOCYTE # (test 0.02 x10 3/uL 0.00-0.07 N code = IG#) LYMPHOCYTE # (test code = LY#) 3.1 K/mm3 1.2-4.0 N MONOCYTE # (test code = MO#) 0.6 K/mm3 0.0-0.6 N EOSINOPHIL # (test code = EO#) 0.3 K/MM3 0.0-0.7 N BASOPHIL # (test code = BA#) 0.1 K/mm3 0.0-0.2 N
[2021-12-02 22:12] LABS: SARS-COV-2 RT PCR NEGATIVE (NEGATIVE)
[2021-12-02] MEDS ORDERED: NA CHLORIDE 0.9% 1,000 ML ONE (22:49)
[2021-12-02] MEDS ORDERED: FAMOTIDINE 20 MG/2 ML VIAL IV ONE (22:52)
[2021-12-02 22:58] LABS: Absolute Lymphocytes (CBC) 2.8 K/uL (0.7-4.9); Hematocrit 44.5 % (39.6-49.0); Lymphocytes % 26.6 % (15.3-44.8); MPV 7.9 fL (7.6-11.3); RBC Red Blood Cell Count 5.07 M/uL (4.33-5.43)
[2021-12-02 23:24] LABS: ALT/SGPT 129 U/L (12-78); Alkaline Phosphatase 124 U/L (45-117); BUN Blood Urea Nitrogen 15 mg/dL (7-18); Bicarbonate 28 mmol/L (21-32); Bilirubin Direct < 0.1 mg/dL (0-0.2); Bilirubin Total 0.2 mg/dL (0.2-1.0); Glucose Level 89 mg/dL (74-106); Lipase 65 U/L (73-393); Protein, Total 7.6 g/dL (6.4-8.2); Sodium Level 139 mmol/L (136-145)
[2021-12-02 23:25] LABS: AST/SGOT 52 U/L (15-37); Potassium 4.1 mmol/L (3.5-5.1)
[2021-12-03 00:46] LABS: Urine Blood Negative (Negative); Urine Glucose Negative (Negative); Urine Protein Negative (Negative); Urine Specific Gravity 1.025 (1.005-1.030); Urine pH 6.5 (5.0-7.0)
--- NOTE | 2021-12-03 01:34 | EDPHYS ---
Physician Documentation [facility] Name: Ray Malcolm Age: 26 yrs Sex: Male : 1995 Arrival Date: 12/02/2021 Time: 21:01 Bed 20 Private MD: ED Physician Colin Tinsley HPI: 12/02 22:54 This 26 yrs old Male presents to ER via Ambulatory with complaints of mh7 Nausea/Vomiting/Diarrhea. 22:54 The patient presents to the emergency department with nausea, that is moderate, mh7 vomiting, that is intermittent, described as clear fluid, diarrhea, that is intermittent. Onset: The symptoms/episode began/occurred 6 day(s) ago. Possible causes: unknown. The symptoms are aggravated by food , The symptoms are alleviated by nothing. Associated signs and symptoms: Pertinent positives: diarrhea, nausea, vomiting, Pertinent negatives: abdominal pain, anorexia, belching, constipation, dysuria, fever, flatulence, GI bleeding, hematuria. Severity of symptoms: At their worst the symptoms were moderate 3 day(s) ago, in the emergency department the symptoms have improved moderately. Historical: - Allergies: 21:15 No Known Allergies; vc1 - PMHx: 21:15 None; vc1 - PSHx: 21:15 None; vc1 - Immunization history:: Adult Immunizations up to date, Last tetanus immunization: > 10 years ago Stepped on a nail. - Social history:: Smoking status: Patient reports the use of cigarette tobacco products, smokes one-half pack cigarettes per day. ROS: 22:54 Constitutional: Negative for fever, chills, and weight loss, Eyes: Negative for injury, mh7 pain, redness, and discharge, ENT: Negative for injury, pain, and discharge, Neck: Negative for injury, pain, and swelling, Cardiovascular: Negative for chest pain, palpitations, and edema, Respiratory: Negative for shortness of breath, cough, wheezing, and pleuritic chest pain, Back: Negative for injury and pain, : Negative for injury, bleeding, discharge, and swelling, MS/Extremity: Negative for injury and deformity, Skin: Negative for injury, rash, and discoloration, Neuro: Negative for headache, weakness, numbness, tingling, and seizure, Psych: Negative for depression, anxiety, suicide ideation, homicidal ideation, and hallucinations, Allergy/Immunology: Negative for hives, rash, and allergies, Endocrine: Negative for neck swelling, polydipsia, polyuria, polyphagia, and marked weight changes, Hematologic/Lymphatic: Negative for swollen nodes, abnormal bleeding, and unusual bruising. Exam: 22:54 Constitutional: This is a well developed, well nourished patient who is awake, alert, mh7 and in no acute distress. Head/Face: Normocephalic, atraumatic. Eyes: Pupils equal round and reactive to light, extra-ocular motions intact. Lids and lashes normal. Conjunctiva and sclera are non-icteric and not injected. Cornea within normal limits. Periorbital areas with no swelling, redness, or edema. Neck: Trachea midline, no thyromegaly or masses palpated, and no cervical lymphadenopathy. Supple, full range of motion without nuchal rigidity, or vertebral point tenderness. No Meningismus. Chest/axilla: Normal chest wall appearance and motion. Nontender with no deformity. No lesions are appreciated. Cardiovascular: Regular rate and rhythm with a normal S1 and S2. No gallops, murmurs, or rubs. Normal PMI, no JVD. No pulse deficits. Respiratory: Lungs have equal breath sounds bilaterally, clear to auscultation and percussion. No rales, rhonchi or wheezes noted. No increased work of breathing, no retractions or nasal flaring. Abdomen/GI: Soft, non-tender, with normal bowel sounds. No distension or tympany. No guarding or rebound. No evidence of tenderness throughout. Back: No spinal tenderness. No costovertebral tenderness. Full range of motion. Skin: Warm, dry with normal turgor. Normal color with no rashes, no lesions, and no evidence of cellulitis. MS/ Extremity: Pulses equal, no cyanosis. Neurovascular intact. Full, normal range of motion. Neuro: Awake and alert, GCS 15, oriented to person, place, time, and situation. Cranial nerves II-XII grossly intact. Motor strength 5/5 in all extremities. Sensory grossly intact. Cerebellar exam normal. Normal gait. Psych: Awake, alert, with orientation to person, place and time. Behavior, mood, and affect are within normal limits. Vital Signs: 21:09 BP 140 / 95; Pulse 96; Resp 18; Temp 97.8(TE); Pulse Ox 96% ; Weight 97.52 kg; Height 5 vc1 ft. 7 in. (170.18 cm); Pain 3/10; 12/03 01:43 BP 136 / 82; Pulse 87; Resp 18; sf1 12/02 21:09 Body Mass Index 33.67 (97.52 kg, 170.18 cm) 1 MDM: 01:31 Differential diagnosis: gastritis, pancreatitis, diverticulitis, viral gastroenteritis, mh7 gastroenteritis. Data reviewed: vital signs, nurses notes, lab test result(s), CBC, electrolytes, radiologic studies, CT scan. Data interpreted: Pulse oximetry: on room air is 96 %. Interpretation: normal. Counseling: I had a detailed discussion with the patient and/or guardian regarding: the historical points, exam findings, and any diagnostic results supporting the discharge/admit diagnosis, the presence of at least one elevated blood pressure reading (>120/80) during this emergency department visit, lab results, radiology results, the need for outpatient follow up, to return to the emergency department if symptoms worsen or persist or if there are any questions or concerns that arise at home. Response to treatment: the patient's symptoms have resolved after treatment, the patient's blood pressure is in an acceptable range, mental status has returned to baseline, the patient no longer shows bradycardia, the patient is not short of breath, the patient is not tachycardic, the patient's pain is gone, the patient's temperature has normalized, patient is well hydrated. Tolerating p.o. intake without difficulty. 01:34 Patient medically screened. [facility] 12/02 21:20 Order name: COVID-19/FLU A+B/RSV (Document "Date of Onset" if Symptomatic) [facility] 12/02 21:20 Order name: COVID-19/FLU A+B/RSV; Complete Time: 22:30 EDMS 12/02 22:30 Order name: Basic Metabolic Panel; Complete Time: 23:37 [facility] 12/02 22:30 Order name: CBC with Diff; Complete Time: 23:37 [facility] 12/02 22:30 Order name: Hepatic Function; Complete Time: 23:37 [facility] 12/02 22:30 Order name: Lipase; Complete Time: 23:37 [facility] 12/02 22:30 Order name: IV Saline Lock; Complete Time: 22:33 [facility] 12/02 22:30 Order name: Labs collected and sent; Complete Time: 22:33 [facility] 12/02 22:30 Order name: Urine Dipstick-Ancillary (obtain specimen); Complete Time: 00:41 [facility] 12/02 23:47 Order name: CT Abd/Pelvis - IV Contrast Only [facility] 12/03 00:46 Order name: Urine Dipstick-Ancillary; Complete Time: 01:30 EDMS Administered Medications: 12/02 22:51 Drug: NS 0.9% 1000 ml Route: IV; Rate: 1000 ml; Site: right forearm; sf1 22:53 Drug: Pepcid (famotidine) 20 mg Route: IVP; Site: right forearm; sf1 Disposition Summary: 12/03/21 01:34 Discharge Ordered Location: Home [facility] Problem: [facility] Symptoms: have improved [facility] Condition: Stable [facility] Diagnosis - Gastroenteritis [facility] Followup: [facility] - With: Private Physician - When: 1 - 2 days - Reason: Worsening of condition, Recheck today's complaints, Continuance of care, Re-evaluation by your physician Discharge Instructions: - Discharge Summary Sheet [facility] - Viral Gastroenteritis, Adult, [id number] [facility] Forms: - Medication Reconciliation Form [facility] - Thank You Letter [facility] - Antibiotic Education [facility] - Prescription Opioid Use [facility] Prescriptions: - ondansetron 4 mg Oral tablet,disintegrating - place 1 tablet by TRANSLINGUAL route every 8 hours As needed; 10 tablet; [facility] Refills: 0, Product Selection Permitted - Pepcid 20 mg Oral Tablet - take 1 tablet by ORAL route every 12 hours for 5 days; 10 tablet; Refills: 0, [facility] Product Selection Permitted - Cipro 500 mg Oral Tablet - take 1 tablet by ORAL route every 12 hours for 5 days; 10 tablet; Refills: 0, [facility] Product Selection Permitted - dicyclomine 20 mg Oral Tablet - take 1 tablet by ORAL route 4 times per day As needed; 20 tablet; Refills: 0, [facility] Product Selection Permitted Signatures: Dispatcher [employer] EDColin Barbour MD MD 7 Judy Thomason RN RN vc1 Colleen Romeo RN RN sf1
--- NOTE | 2021-12-03 01:34 | ER ---
Nurse's Notes [facility] Name: Ray Malcolm Age: 26 yrs Sex: Male : 1995 Arrival Date: 12/02/2021 Time: 21:01 Bed 20 Private MD: Diagnosis: Gastroenteritis Presentation: 12/02 21:09 Chief complaint: Patient states: Im dizzy, throwing up, diarrhea. I was working today vc1 and I just kept getting dizzy and throwing up. It has been going on for about a week now. Coronavirus screen: Vaccine status: Patient reports receiving the 2nd dose of the covid vaccine. Moderna chills, diarrhea, nausea, vomiting. Client presents with at least one sign or symptom that may indicate coronavirus-19. Standard/surgical mask placed on the client. Provider contacted for isolation considerations. Ebola Screen: No symptoms or risks identified at this time. Initial Sepsis Screen: Does the patient meet any 2 criteria? No. Patient's initial sepsis screen is negative. Does the patient have a suspected source of infection? No. Patient's initial sepsis screen is negative. Risk Assessment: Do you want to hurt yourself or someone else? Patient reports no desire to harm self or others. Onset of symptoms is unknown. 21:09 Method Of Arrival: Ambulatory vc1 21:09 Acuity: CJ 3 vc1 21:17 Chief complaint: Patient states: I also stepped on a nail today. vc1 Triage Assessment: 21:17 General: Appears in no apparent distress. comfortable, Behavior is calm, cooperative, vc1 appropriate for age. Pain: Complains of pain in right foot. GI: Reports diarrhea, nausea, vomiting. Historical: - Allergies: 21:15 No Known Allergies; vc1 - PMHx: 21:15 None; vc1 - PSHx: 21:15 None; vc1 - Immunization history:: Adult Immunizations up to date, Last tetanus immunization: > 10 years ago Stepped on a nail. - Social history:: Smoking status: Patient reports the use of cigarette tobacco products, smokes one-half pack cigarettes per day. Screenin/12 01:43 Abuse screen: Denies threats or abuse. Nutritional screening: No deficits noted. sf1 Tuberculosis screening: No symptoms or risk factors identified. Fall Risk None identified. Assessment: 01:44 GI: Abdomen is flat, non-distended. sf1 Vital Signs: 12/02 21:09 BP 140 / 95; Pulse 96; Resp 18; Temp 97.8(TE); Pulse Ox 96% ; Weight 97.52 kg; Height 5 vc1 ft. 7 in. (170.18 cm); Pain 3/10; 12/03 01:43 BP 136 / 82; Pulse 87; Resp 18; sf1 12/02 21:09 Body Mass Index 33.67 (97.52 kg, 170.18 cm) vc1 ED Course: 12/02 21:01 Patient arrived in ED. kc5 21:15 Triage completed. vc1 21:17 Arm band placed on right wrist. vc1 22:02 Colin Tinsley MD is Attending Physician. 7 22:12 Colleen Romeo RN is Primary Nurse. sf1 22:13 COVID-19/FLU A+B/RSV (Document "Date of Onset" if Symptomatic) Sent. sf1 22:27 Inserted saline lock: 20 gauge in right forearm, using aseptic technique. Blood ds4 collected. 22:45 Lipase Sent. sf1 22:46 Hepatic Function Sent. sf1 22:46 CBC with Diff Sent. sf1 22:46 Basic Metabolic Panel Sent. 1 02 00:26 CT Abd/Pelvis - IV Contrast Only In Process Unspecified. EDID 01:43 Patient has correct armband on for positive identification. sf1 01:43 No provider procedures requiring assistance completed. IV discontinued, intact, sf1 bleeding controlled, No redness/swelling at site. Pressure dressing applied. Administered Medications: 12/02 22:51 Drug: NS 0.9% 1000 ml Route: IV; Rate: 1000 ml; Site: right forearm; sf1 22:53 Drug: Pepcid (famotidine) 20 mg Route: IVP; Site: right forearm; sf1 Outcome: 12/03 01:34 Discharge ordered by . [facility] 01:43 Discharged to home ambulatory. sf1 01:43 Condition: good 01:43 Discharge instructions given to patient, Instructed on discharge instructions, follow up and referral plans. Demonstrated understanding of instructions, follow-up care, medications, Prescriptions given X 4. 01:45 Patient left the ED. sf1 Signatures: Dispatcher [employer] EDID Donny Iraheta ds4 Colin Tinsley MD MD mh7 Whitney Raphael kc5 Judy Thomason, RN RN vc1 Colleen Romeo RN RN sf1
[2021-12-03 02:14] VITALS: TEMP 97.8; O2SAT 96
[2021-12-03 02:15] VITALS: BP 136/82
--- NOTE | 2021-12-05 17:19 | RAD REPORT ---
EXAM DESCRIPTION: CT - Abdomen Pelvis W Contrast - 12/03/2021 7:20 am CLINICAL HISTORY: The patient is 26 years old and is Male; diarrhea;Nausea / vomiting TECHNIQUE: Axial computed tomography images of the abdomen and pelvis with intravenous contrast. S agittal and coronal reformatted images were created and reviewed. This CT exam was performed using one or more of the following dose reduction techniques: automated exposure control, adjustment of t he mA and/or kV according to patient size, and/or use of iterative reconstruction technique. COMPARISON: No relevant prior studies available. FINDINGS: Lung bases: Unremarkable. No mass. No consolidation. ABDOMEN: Liver: Unremarkable. No mass. Gallbladder and bile ducts: Unremarkable. No calcified stones. No ductal dilation. Pancreas: Unremarkable. No mass. No ductal dilation. Spleen: Unremarkable. No splenomegaly. Adrenals: Unremarkable. No mass. Kidneys and ureters: Unremarkable. No solid mass. No hydronephrosis. Stomach and bowel: Stool throughout the colon. No obstruction. No mucosal thickening. PELVIS: Appendix: No findings to suggest acute appendicitis. Bladder: Unremarkable. No mass. Reproductive: Unremarkable as visualized. ABDOMEN and PELVIS: Intraperitoneal space: Unremarkable. No free air. No significant fluid collection. Bones/joints: 1.1 cm sclerotic lesion in the left acetabulum. 4 mm sclerotic lesion in the left f emoral head. No acute fracture. No dislocation. Soft tissues: Unremarkable. Vasculature: Unremarkable. No abdominal aortic aneurysm. Lymph nodes: Unremarkable. No enlarged lymph nodes. IMPRESSION: No acute findings in the abdomen or pelvis. Electronically signed by: Mike Olmedo MD 12/03/2021 1:10 AM BOTTLE [employer]AUGER Due to temporary technical issues with the PACS/Fluency reporting system, reports are being signed by the in house radiologists without review as a courtesy to insure prompt reporting. The interpreting radiologist is fully responsible for the content of the report.
== END 2021-12-03 01:45 | disposition home or self-care (01) ==
LOC: ER 20:57
DX: K52.9 Noninfective gastroenteritis and colitis, unspecified (principal); F17.210 Nicotine dependence, cigarettes, uncomplicated; Z20.822 Contact with and (suspected) exposure to COVID-19
CPT/HCPCS: 0241U; 36415; 74177; 80048; 80076; 81003; 83690; 85025; 96374; 99284; J7030; Q9967

== ENCOUNTER 2022-04-12 08:19 | Emergency (ER) | payer SELFPAY ==
--- OUTSIDE RECORDS SUMMARY | 2022-04-12 08:24 | XMS REPORT | Continuity of Care Document ---
:1995 Author Organization [facility] t Address [address] [place] [address] Care Team Providers Name Role Phone Winter LYNN Attending Clinician Payers Payer Name Policy Type Policy Number Effective Date Expiration Date S ource Problems Condition Condition Condition Status Onset Resolution Last Treating Co mments Source Name Details Category Date Date Treatment Clinician Date No known No known Disease Unive rs active active ity of problems problems [facility] Allergies, Adverse Reactions, Alerts Allergy Allergy Status Severity Reaction(s) Onset Inactive Treating Comm ents Source Name Type Date Date Clinician No Known DA Active [facility]ie 03-02 [place] [facility] Social History Social Habit Start Date Stop Date Quantity Comments Source Sex Assigned At Uni versity [facility] Smoking Status Start Date Stop Date Source Unknown if ever smoked Universit y [facility] Medications Ordered Filled Start Stop Current Ordering Indication Dosage Frequency Signature Comments Components Source Medication Medication Date Date Medication? Clinician (SIG) Name Name hydrocortis 2019- No [id number] Insert Univers one 2.5 % 06-28 into ity of rectal 00:00: 04:59 rectum 2 [place] cream 00 :00 (two) Medical times [place] daily for 14 days. sulfamethox Yes 1{tbl} Take 1 Tab Univers azole-trime 1-27 by mouth ity of thoprim 00:00: every 12 [place] (BACTRIM 00 (twelve) Medical DS) 800-160 hours. Branch mg per tablet albuterol 2015- Yes 2{puff} Inhale 2 U nivers (PROAIR 1-27 Puffs ity of HFA) 90 00:00: every 6 [place] mcg/actuati 00 (six) Medical on inhaler hours as Branc h needed for Wheezing or Shortness of Breath. proMETHazin Yes 12.5mg Take 0.5 Univers e 1-27 Tabs by ity of (PHENERGAN) 00:00: mouth [place] 25 mg 00 every 6 Medical tablet (six) Branch hours as needed for Nausea and Vomiting (N/V). Vital Signs Vital Name Observation Time Observation Value Comments Source Systolic blood 2019-06-28 19:25:00 129 mm[Hg] [facility] Diastolic blood 2019-06-28 19:25:00 71 mm[Hg] [facility] 2019-06-28 19:25:00 74 /min [facility] Body temperature 2019-06-28 19:25:00 36.78 Bre [facility] Respiratory rate 2019-06-28 19:25:00 18 /min [facility] Body height 2019-06-28 19:25:00 170.2 cm [facility] Body weight 2019-06-28 19:25:00 90.719 kg [facility] BMI 2019-06-28 19:25:00 31.32 kg/m2 [facility] Oxygen saturation in 2019-06-28 19:25:00 100 /min [facility] Arterial blood by [facility] [place] [facility] Pulse oximetry Branch Procedures Procedure Date / Time Performed Performing Clinician Sour e NOTICE OF PRIVACY 2019-06-28 19:14:11 Doctor Unassigned, No Univ [facility] PRACTICES Name Medical Branch CONSENT/REFUSAL FOR 2019-06-28 19:13:52 Doctor Unassigned, No [facility] AND Name Medical Branch TREATMENT Encounters Start End Encounter Admission Attending Care Care Encounter Source Date/Time Date/Time Type Type Clinicians Facility Department ID 2019-06-28 2019-06-28 Emergency [facility] [id number] [facility] [place] [facility] 14:27:25 15:46:00 Hilda Weaver [id number] i ty jake Bolanos [id number] [facility] [id number] [facility] 084 Branch Results Test Description Test Time Test Comments Results Result Comments Source - XR CHEST 1 V 2019-04-11 FAX: 23:03:00 Addison Kim MD [phone] [place]: St: REG Name: BJORN TESFAYEMiguel AngelAPRIL [facility] : 1995 Age/S: 23/M [address] [facility] Unit #: [id number] Loc: [place], [place]: [place] [id number] Acct: [id number] Dis Date: Status: REG ER PHONE #: [phone] Exam Date: 04/11/2019 2251 FAX #: [phone] Reason: chest pain EXAMS: CPT CODE: [id number] XR CHEST 1 V 48887 AFTER HOURS SERVICE ON: 04/11/2019 11:02 PM AP Portable Chest Location Code M12 HISTORY: chest pain FINDINGS: There are no infiltrates. There are no pleural effusions. There is no pneumothorax. Cardiac silhouette and mediastinum appear within normal limits. IMPRESSION: No active pulmonary findings. at 2303 Reported and signed by: Hany Arcos M.D. CC: Addison Kim MD Technologist: ELIGIO CARO Trnnjrd Date/Time/By: 04/11/2019 (2303) : By: [email or web address] PAGE 1 Signed Report FAX: Addison Kim MD [phone] [place]: St: REG Name: BJORN TESFAYE [facility] : 1995 Age/S: 23/M [address] [employer] Unit #: [id number] Loc: [place], [place]: [place] [id number] Acct: [id number] Dis Date: Status: REG ER PHONE #: [phone] Exam Date: 04/11/2019 2254 FAX #: [phone] Reason: chest pain EXAMS: CPT CODE: [id number] XR CHEST 1 V 46735 <Continued> Orig Print D/T: S: 04/11/2019 (7772) PAGE 2 Signed Report COMPREHENSIVE METABOLIC PANEL [...] 94 Units/L 50.0-136 .0 N THYROID STIMULATING [id number] 22:52:00 Test Item Value Reference Range Interpretation Comments THYROID STIMULATING 2.13 IU/ML 0.47-5.01 N Result i s in HORMONE (test code = Interna tional TSH) Units/millilite r [id number] 22:52:00 Test Item Value Reference Range Interpretation Comments TROPONIN-I (test <0.02 NG/ML 0.00-0.06 N REFERENCE R SHANTI code = TROPI) TROPONIN I HEA LTHY INDIVIDUALS: < 0.06 ng/mL R/O ISCHE ARCELIA: 0.07 - 0.60 ng/ mL CUT-OFF RANGE F OR AMI: 0.60 - 1.5 ng/m L PROTHROMBIN [id number] 22:50:00 Test Item Value Reference Range Interpretation Comments PROTHROMBIN TIME 13.0 SECONDS 9.9-12.8 H PATIENT (test code = PTP) INTERNATIONAL NORMAL 1.1 0.89-1.14 N THE INR IS TO BE USED RATIO (test code = ONLY FOR MONITORING INR) ORAL ANTICOAGULANTTH ERAPY. THE FOLLOWING A RE SUGGESTED RANGE S FROM [facility]AN [facility] LEGE OF CHEST PHYSICIANS:KASSIDY CATION INR VALUEPROPHYLAXI S OF VENOUS THROMBOS IS (ORTHOPEDIC KYLER MILDRED) 2.0 - 3.0PROP HYLAXIS OF VENOUS THROM BOSIS (OTHER THAN HIG H-RISK SURGERY) 2.0 - 3.0TRE ATMENT OF DEEP VEIN THROMBOSIS OR PULMONARY EMBOL ISM 2.0 - 3.0PREV ENTION OF SYSTEMIC EMB OLISM TISSUE HEART VA LVES 2.0 - 3.0 AC [facility] MYOCARDIAL INFA RCTION (TO PREVENT SYSTEMIC EMBOLI [...] ANTIBODIES 2.5 - 3 .5 SPECIMEN 4+ [id number]-[id number] 22:50:00 Test Item Value Reference Range Interpretation Comments D-DIMER/FSP (test 208 ng/mL 200.0-230.0 N Pe r chief meteorologist code = DDIMER) recommendatio n, the CUT [...] test res ult. SPECIMEN 4+ HEMOLYSISCBC W/AUTO [id number] 22:30:00 Test Item Value Reference Range Interpretation [...] K/mm3 0.0-0.2 N - XR CHEST 1 [id number] 00:04:00 FAX: Tracey Allen NP [phone] [place]: St: REG Name: BRIENBJORN SPRING [facility] : 1995 Age/S: 23/M [address] [facility] Unit#: [id number] [place]: [place]: [place] [address] Acct: [id number] Dis Date: Status: REG ER PHONE #: [phone] Exam Date: 03/02/2019 2345 FAX #: [phone] Reason: CHEST PAIN EXAMS: CPT CODE: [id number] XR CHEST 1 V [id number] EXAM: - XR CHEST 1 V HISTORY: [...] CC: Tracey Allen NP Technologist: NIKOLAI HARRISON [facility] Date/Time/By: 03/03/2019 (0004) : By: [email or web address] PAGE 1 Signed Report FAX: Tracey Allen NP [phone] [place]: St: REG Name: BRIENBJORNATIF LONDONO [facility] : 1995 Age/S: 23/M [address] [facility] Unit #: [id number] Loc: [place], [place]: [place] [address] Acct: [id number] Dis Date: Status: REG ER PHONE #: [phone] Exam Date: 03/02/2019 2345 FAX #: [phone] Reason: CHEST PAIN EXAMS: CPT CODE: [id number] XR CHEST 1 V [id number] <Continued> Orig Print D/T: S: 03/03/2019 (0007) PAGE 2 Signed Report COMPREHENSIVE METABOLIC [id number] 00:02:00 Test Item Value Reference Range Interpretation [...] 50.0-136.0 N code = ALKP) CARDIAC ENZYMES [id number] 00:02:00 Test Item Value Reference Range Interpretation Comments CREATINE KINASE (CK) 145 Units/L 39-308 N (test code = CK) TROPONIN-I (test code <0.02 NG/ML 0.00-0.06 N REFERE NCE RANGE = TROPI) TROPONIN I HEAL THY INDIVIDUALS: < 0.06 ng/mL R/O ISCHE ARCELIA: 0.07 - 0.60 ng/ mL CUT-OFF RANGE F OR AMI: 0.60 - 1. 5 ng/mL PROTHROMBIN [id number] 23:55:00 Test Item Value Reference Range Interpretation Comments PROTHROMBIN TIME 11.1 SECONDS 9.9-12.8 N PATIENT (test code = PTP) INTERNATIONAL NORMAL 0.9 0.89-1.14 N THE INR IS TO BE USED RATIO (test code = ONLY FOR MONITORING INR) ORAL ANTICOAGULANTTH ERAPY. THE FOLLOWING A RE SUGGESTED RANGE S FROM [facility] LEGE OF CHEST PHYSICIANS:KASSIDY CATION INR VALUEPROPHYLAXI S OF VENOUS THROMBOS IS (ORTHOPEDIC KYLER MILDRED) 2.0 - 3.0PROP HYLAXIS OF VENOUS THROM BOSIS (OTHER THAN HIG H-RISK SURGERY) 2.0 - 3.0TRE ATMENT OF DEEP VEIN THROMBOSIS OR PULMONARY EMBOL ISM 2.0 - 3.0PREV ENTION OF SYSTEMIC EMB OLISM TISSUE HEART VA LVES 2.0 - 3.0 AC [facility] MY[facility] INFA RCTION (TO PREVENT SYSTEMIC EMBOLI [...] ANTIBODIES 2.5 - 3 .5 THROMBOPLASTIN TIME [id number] 23:55:00 Test Item Value Reference Range Interpretation Comments THROMBOPLASTIN TIME 31.20 SECONDS 25.86-36.07 N [place] [facility] PARTIAL (test code = Therape utic Range - PTT) APTT of 55.8-85 .4 secondscorrelat es with plasma heparin concentration o f 0.2-0.4 u/mL Ne w range effective - TROPONIN I [id number] 23:53:00 Test Item Value Reference Range Interpretation [...] changes in trop onin levelscharacter istic of [place]. COMPREHENSIVE METABOLIC [id number] 23:53:00 Test Item Value Reference Range Interpretation [...] Units/L 50.0-136.0 code = ALKP) CARDIAC ENZYMES [id number] 23:53:00 Test Item Value Reference Range Interpretation Comments CREATINE KINASE (CK) (test code = Units/L 39-308 CK) TROPONIN-I (test code = TROPI) NG/ML 0.00-0.06 CBC W/AUTO [id number] 23:50:00 Test Item Value Reference Range Interpretation [...]
[2022-04-12 08:49] LABS: Urine Blood Negative (Negative); Urine Glucose Negative (Negative); Urine Protein Negative (Negative); Urine pH 6.5 (5.0-7.0)
[2022-04-12 09:09] LABS: Absolute Lymphocytes (CBC) 1.5 K/uL (0.7-4.9); Hematocrit 38.4 % (39.6-49.0); Lymphocytes % 22.8 % (15.3-44.8); MPV 7.5 fL (7.6-11.3); RBC Red Blood Cell Count 4.43 M/uL (4.33-5.43)
[2022-04-12 09:27] LABS: Potassium 3.3 mmol/L (3.5-5.1)
--- NOTE | 2022-04-12 10:07 | RAD REPORT ---
EXAM DESCRIPTION: CT - Pelvis W/Cont - 04/12/2022 9:42 am CLINICAL HISTORY: Pelvic pain status post fall COMPARISON: None. TECHNIQUE: Computed axial tomography of the pelvis was obtained. Coronal and sagittal reconstruction performed All CT scans are performed using dose optimization technique as appropriate and may include automated exposure control or mA/KV adjustment according to patient size. FINDINGS: No hematoma visualized. No inguinal hernia. Visualized bowel caliber and wall thickness is normal. Small umbilical hernia No ascites. No gross abnormality of the bladder. IMPRESSION: No acute abnormality is displayed
--- NOTE | 2022-04-12 10:08 | RAD REPORT ---
EXAM DESCRIPTION: US - Scrotum Testicles - 04/12/2022 8:57 am CLINICAL HISTORY: Testicular pain status post trauma COMPARISON: None FINDINGS: Right testicle measures 4.1 x 2.2 x 2.6 centimeters. Echotexture is homogeneous. Normal bl ood flow Left testicle measures 3.9 x 1.9 x 2.9 centimeters. Echotexture is homogeneous. Normal blood flow The epididymides are normal in size and echotexture. Normal blood flow is seen. A 4 millimeter right spermatocele No inguinal hernia visualized IMPRESSION: 4 millimeter right spermatocele No significant abnormalities is displayed
--- NOTE | 2022-04-12 10:14 | EDPHYS ---
Physician Documentation [facility] Name: Ray Malcolm Age: 26 yrs Sex: Male : 1995 Arrival Date: 04/12/2022 Time: 08:21 Bed 6 Private MD: ED Physician Froylan Burgos HPI: 04/12 09:00 This 26 yrs old Male presents to ER via Ambulatory with complaints of testicular rn pain/swelling. 09:00 The patient presents with scrotal pain, of both sides, with swelling. rn 09:00 Onset: The symptoms/episode began/occurred 3 day(s) ago. Modifying factors: The rn symptoms are alleviated by nothing, the symptoms are aggravated by movement. Associated signs and symptoms: Pertinent negatives: abdominal pain, dysuria, fever, hematuria, nausea, vomiting. Severity of symptoms: At their worst the symptoms were moderate, in the emergency department the symptoms are unchanged. The patient has not experienced similar symptoms in the past. The patient has not recently seen a physician. Pt reports straddle injury, one leg fell into hole, and scrotum/testicles hit hard floor on way down, no hematuria, no difficulty urinating, reports pain with movement and palpation, happened 3 days ago, no other injuries. . Historical: - Allergies: 08:41 No Known Allergies; vg1 - Home Meds: 08:41 None [Active]; vg1 - PMHx: 08:41 None; vg1 - PSHx: 08:41 None; vg1 - Immunization history:: Client reports receiving the 2nd dose of the Covid vaccine. - Social history:: Smoking status: Patient reports the use of cigarette tobacco products, smokes one-half pack cigarettes per day. - Family history:: not pertinent. - Hospitalizations: : No recent hospitalization is reported. ROS: 09:00 Constitutional: Negative for fever, chills, and weight loss, Eyes: Negative for injury, rn pain, redness, and discharge, Neck: Negative for injury, pain, and swelling, Cardiovascular: Negative for chest pain, palpitations, and edema, Respiratory: Negative for shortness of breath, cough, wheezing, and pleuritic chest pain, Abdomen/GI: Negative for abdominal pain, nausea, vomiting, diarrhea, and constipation, Back: Negative for injury and pain, : + scrotal and testicular pain MS/Extremity: Negative for injury and deformity, Skin: Negative for injury, rash, and discoloration, Neuro: Negative for headache, weakness, numbness, tingling, and seizure. Exam: 09:00 Constitutional: This is a well developed, well nourished patient who is awake, alert, rn and in no acute distress. Ambulatory to room without difficulty or assistance. Head/Face: Normocephalic, atraumatic. Cardiovascular: Bradycardic, regular. No pulse deficits. Respiratory: Speaking full sentences, unlabored. No increased work of breathing, no retractions or nasal flaring. Abdomen/GI: Soft, non-tender, no ecchymosis or rebound Male : + scrotal swelling and ecchymosis, no ecchymosis or tenderness of perineum, no open wounds, no penile tenderness or deformity. Testicles grossly feel intact and equal. Skin: Warm, dry MS/ Extremity: Pulses equal, no cyanosis. Neuro: Awake and alert, GCS 15, oriented to person, place, time, and situation. Vital Signs: 08:30 BP 135 / 91; Pulse 53; Resp 16; Pulse Ox 100% ; Weight 102.06 kg; Height 5 ft. 7 in. vg1 (170.18 cm); Pain 0/10; 10:30 BP 132 / 88; Pulse 56; Resp 16; Pulse Ox 100% ; vg1 08:30 Body Mass Index 35.24 (102.06 kg, 170.18 cm) vg1 MDM: 08:25 Patient medically screened. rn 10:11 Differential diagnosis: traumatic testicular problem, pelvic fracture, contusion, rn hematoma. Data reviewed: vital signs, nurses notes, lab test result(s), radiologic studies, CT scan, ultrasound, and as a result, I will discharge patient. Counseling: I had a detailed discussion with the patient and/or guardian regarding: the historical points, exam findings, and any diagnostic results supporting the discharge/admit diagnosis, lab results, radiology results, the need for outpatient follow up, to return to the emergency department if symptoms worsen or persist or if there are any questions or concerns that arise at home. Special discussion: I discussed with the patient/guardian in detail that at this point there is no indication for admission to the hospital. It is understood, however, that if the symptoms persist or worsen the patient needs to return immediately for re-evaluation. Based on the history and exam findings, there is no indication for further emergent testing or inpatient evaluation. I discussed with the patient/guardian the need to see the primary care provider for further evaluation of the symptoms. ED course: NO acute traumatic findings on CT or u/s, urine clean without hematuria, likely just scrotal contusion.. 04/12 08:37 Order name: CBC with Diff; Complete Time: 09:28 rn 04/12 08:37 Order name: Basic Metabolic Panel; Complete Time: 09: rn 04/12 08:37 Order name: IV Start; Complete Time: 09:05 rn 04/12 08:37 Order name: US Scrotum Testicles; Complete Time: 10:11 rn 04/12 08:37 Order name: CT Pelvis w cont; Complete Time: 10: rn 04/12 08:49 Order name: Urine Dipstick-Ancillary; Complete Time: 09: EDMI 04/12 08:37 Order name: Urine Dipstick-Ancillary (obtain specimen); Complete Time: 08:49 rn Administered Medications: No medications were administered Disposition Summary: 04/12/22 10:13 Discharge Ordered Location: Home rn Problem: new rn Symptoms: have improved rn Condition: Stable rn Diagnosis - Contusion of scrotum and testes rn Followup: rn - With: Private Physician - When: As needed - Reason: Recheck today's complaints, Re-evaluation by your physician Discharge Instructions: - Discharge Summary Sheet rn - Contusion rn Forms: - Medication Reconciliation Form rn - Thank You Letter rn - Antibiotic garnishment specialist - Prescription Opioid Use rn Signatures: Dispatcher [employer] Froylan Villalpando MD MD rn Garcia, Victoria RN RN vg1
--- NOTE | 2022-04-12 10:14 | ER ---
Nurse's Notes [facility] Name: Ray Malcolm Age: 26 yrs Sex: Male : 1995 Arrival Date: 04/12/2022 Time: 08:21 Bed 6 Private MD: Diagnosis: Contusion of scrotum and testes Presentation: 04/12 08:30 Chief complaint: Patient states: three days ago pt fell through hole in floor with left vg1 leg going through the hole and right leg straddling cande. States right and left testicle swelling and bruising. Denies blood in urine or burning upon urination. 08:30 Coronavirus screen: Vaccine status: Patient reports receiving the 2nd dose of the covid vg1 vaccine. Client denies travel out of the [place] in the last 14 days. Client reports previous positive COVID test result. Date of collection: April 11, 2022. Ebola Screen: Patient denies exposure to infectious person. Patient denies travel to an Ebola-affected area in the 21 days before illness onset. Initial Sepsis Screen: Does the patient meet any 2 criteria? No. Patient's initial sepsis screen is negative. Does the patient have a suspected source of infection? No. Patient's initial sepsis screen is negative. Risk Assessment: Do you want to hurt yourself or someone else? Patient reports no desire to harm self or others. Onset of symptoms was April 08, 2022. 08:30 Method Of Arrival: Ambulatory vg1 08:30 Acuity: CJ 3 vg1 Triage Assessment: 08:30 General: Appears uncomfortable, Behavior is calm, cooperative. Pain: Complains of pain vg1 in groin Pain currently is 0 out of 10 on a pain scale. at worst was 8 out of 10 on a pain scale. Pain began 2-3 days ago. EENT: No signs and/or symptoms were reported regarding the EENT system. Neuro: Level of Consciousness is awake, alert, obeys commands, Oriented to person, place, time, situation. Cardiovascular: Patient's skin is warm and dry. Respiratory: Airway is patent Respiratory effort is even, unlabored. GI: No signs and/or symptoms were reported involving the gastrointestinal system. : Denies burning with urination, urinary frequency, blood in urine. Derm: Bruising that is on groin. Musculoskeletal: Swelling present in groin. Historical: - Allergies: 08:41 No Known Allergies; vg1 - Home Meds: 08:41 None [Active]; vg1 - PMHx: 08:41 None; vg1 - PSHx: 08:41 None; vg1 - Immunization history:: Client reports receiving the 2nd dose of the Covid vaccine. - Social history:: Smoking status: Patient reports the use of cigarette tobacco products, smokes one-half pack cigarettes per day. - Family history:: not pertinent. - Hospitalizations: : No recent hospitalization is reported. Screenin:43 Abuse screen: Denies threats or abuse. Nutritional screening: No deficits noted. vg1 Tuberculosis screening: No symptoms or risk factors identified. Fall Risk Fall in past 12 months (25 points). No secondary diagnosis (0 pts). No IV (0 pts). Ambulatory Aid- None/Bed Rest/Nurse Assist (0 pts). Gait- Normal/Bed Rest/Wheelchair (0 pts) Mental Status- Oriented to own ability (0 pts). Total [place] Fall Scale indicates Low Risk Score (25-44 pts). Fall prevention measures have been instituted. Side Rails Up X 2 Placed close to Nursing Station. Assessment: 08:43 Reassessment: SEE TRIAGE. vg1 09:53 Reassessment: Patient appears in no apparent distress at this time. No changes from vg1 previously documented assessment. Patient and/or family updated on plan of care and expected duration. Pain level reassessed. Patient is alert, oriented x 3, equal unlabored respirations, skin warm/dry/pink. 10:52 Reassessment: Patient appears in no apparent distress at this time. Patient is alert, vg1 oriented x 3, equal unlabored respirations, skin warm/dry/pink. Vital Signs: 08:30 BP 135 / 91; Pulse 53; Resp 16; Pulse Ox 100% ; Weight 102.06 kg; Height 5 ft. 7 in. vg1 (170.18 cm); Pain 0/10; 10:30 BP 132 / 88; Pulse 56; Resp 16; Pulse Ox 100% ; vg1 08:30 Body Mass Index 35.24 (102.06 kg, 170.18 cm) vg1 ED Course: 08:21 Patient arrived in ED. mr 08:25 Froylan Burgos MD is Attending Physician. rn 08:28 Jet, Meri, RN is Primary Nurse. vg1 08:30 Arm band placed on. vg1 08:41 Triage completed. vg1 08:43 Patient has correct armband on for positive identification. Call light in reach. Side vg1 rails up X 1. 08:58 US Scrotum Testicles In Process Unspecified. EDMS 09:05 Initial lab(s) drawn, by me, sent to lab. Inserted saline lock: 20 gauge in right vg1 antecubital area, using aseptic technique. Blood collected. 09:44 CT Pelvis w cont In Process Unspecified. EDMS 10:52 No provider procedures requiring assistance completed. IV discontinued, intact, vg1 bleeding controlled, No redness/swelling at site. Pressure dressing applied. Administered Medications: No medications were administered Medication: 10:53 VIS not applicable for this client. vg1 Outcome: 10:13 Discharge ordered by . rn 10:52 Discharged to home ambulatory. vg1 10:52 Condition: good 10:52 Discharge instructions given to patient, Instructed on discharge instructions, follow up and referral plans. Demonstrated understanding of instructions, follow-up care. 10:53 Patient left the ED. vg1 Signatures: Dispatcher [employer] [facility] BarnesChela Roman, MD MD rn Garcia, Victoria, FERNANDO RN vg1
[2022-04-12 11:01] VITALS: O2SAT 100
[2022-04-12 11:03] VITALS: BP 132/88
== END 2022-04-12 10:53 | disposition home or self-care (01) ==
LOC: ER 08:19
DX: S30.22XA Contusion of scrotum and testes, initial encounter (principal); F17.210 Nicotine dependence, cigarettes, uncomplicated
CPT/HCPCS: 36415; 72193; 76870; 80048; 81003; 85025; 99283; Q9967

== ENCOUNTER 2024-02-11 13:13 | Emergency (ER) | payer BC ==
--- OUTSIDE RECORDS SUMMARY | 2024-02-11 13:17 | XMS REPORT | Continuity of Care Document ---
Author Name Unknown Address [address] [facility] [address] [place] [address] [facility] Address [address] [facility] [address] [place] [address] Care Team Providers Care Appellate Law Clerk Name Role Phone Hilda Max PA-C Attending Clinician [phone] Payers Payer Name Policy Type Policy Number Effective Date Expirati on Date Source Problems Condition Name Condition Details Condition Category Status Onset Date Resolution Date Last Treatment Date Treating Clinician Comments Source No known active problems No known active problems Disease [facility] Allergies, Adverse Reactions, Alerts Allergy Name Allergy Type Status Severity Reaction(s) Onset Date Inactive Date Treating Clinician Comments Source No Known Allergie s DA Active U 03-02 00:00: 00 [facility] Social History Social Habit Start Date Stop Date Quantity Comments Source Sex Assigned At [facility] Smoking Status Start Date Stop Date Source Unknown if ever smoked [facility] Medications Ordered Medication Name Filled Medication Name Start Date Stop Date Current Medication? Ordering Clinician Indication Dosage Frequency Signature (SIG) Comments Components Source hydrocortis one 2.5 % rectal cream 06-28 00:00: 00 07-13 04:59 :00 No [id number] Insert into rectum 2 (two) times daily for 14 days. [facility] albuterol (PROAIR HFA) 90 mcg/actuati on inhaler 11-17 00:00: 00 Yes 2{puff} Inhale 2 Puffs every 6 (six) hours as needed for Wheezing or Shortness of Breath. [facility] proMETHazin e (PHENERGAN) 25 mg tablet 11-17 00:00: 00 Yes 12.5mg Take 0.5 Tabs by mouth every 6 (six) hours as needed for Nausea and Vomiting (N/V). [facility] sulfamethox azole-trime thoprim (BACTRIM DS) 800-160 mg per tablet 11-17 00:00: 00 Yes 1{tbl} Take 1 Tab by mouth every 12 (twelve) hours. [facility] Vital Signs Vital Name Observation Time Observation Value Comments S humark Systolic blood pressure 2019-06-28 19:25:00 129 mm[Hg] General acute hospital Diastolic blood pressure 2019-06-28 19:25:00 71 mm[Hg] General acute hospital Heart rate 2019-06-28 19:25:00 74 /min [facility] Body temperature 2019-06-28 19:25:00 36.78 Bre [facility] Respiratory rate 2019-06-28 19:25:00 18 /min [facility] Body height 2019-06-28 19:25:00 170.2 cm [facility] Body weight 2019-06-28 19:25:00 90.719 kg [facility] BMI 2019-06-28 19:25:00 31.32 kg/m2 [facility] Oxygen saturation in Arterial blood by Pulse oximetry 2019-06-28 19:25:00 100 /min General acute hospital Procedures Procedure Date / Time Performed Performing Clinicia n Source NOTICE OF PRIVACY PRACTICES 2019-06-28 19:14:11 Doctor Unassigned, [place] [facility] CONSENT/REFUSAL FOR DIAGNOSIS AND TREATMENT 2019-06-28 19:13:52 Doctor Unassigned, [place] [facility] Encounters Start Date/Time End Date/Time Encounter Type Admission Type Attending Clinicians Care Facility Care Department Encounter ID Source 2019-06-28 14:27:25 2019-06-28 15:46:00 Emergency Hilda Max [facility] [id number] [facility] Results Test Description Test Time Test Comments Results Result Co mments Source - XR CHEST 1 V 2019-04-11 23:03:00 FAX: Addison Kim MD [phone] [place]: St: REG ------ Name: BJORN TESFAYEMiguel AngelAPRIL [facility] 1995 Age/S: 23/M [address] [facility] Unit #: [id number] Loc: [place], [place] Phys: [place] [id number] Acct: [id number] Dis Date: Status: REG ER PHONE #: [phone] Exam Date: 04/11/2019 225 FAX #: [phone] Reason: chest pain EXAMS: CPT CODE: [id number] XR CHEST 1 V 34616 AFTER HOURS SERVICE ON: 04/11/2019 11:02 PM AP Portable Chest Location Code M12 HISTORY: chest pain FINDINGS: There are no infiltrates. There are no pleural effusions. There is no pneumothorax. Cardiac silhouette and mediastinum appear within normal limits. IMPRESSION: No active pulmonary findings. at 2303 Reported and signed by: Hany Arcos M.D. CC: Addison Kim MD Technologist: ELIGIO CARO Trnnyrd Date/Time/By: 04/11/2019 (2303) : By: [email or web address] PAGE 1 Signed Report FAX: Addison Kim MD [phone] [place]: St: REG ------ Name: BJORN TES[facility]YE [facility] : 1995 Age/S: 23/M [address] [facility] Unit #: [id number] [place]: [place]: [place] [id number] Acct: [id number] Dis Date: Status: REG ER PHONE #: [phone] Exam Date: 04/11/2019 2256 FAX #: [phone] Reason: chest pain EXAMS: CPT CODE: [id number] XR CHEST 1 V 73656 (Continued) Orig Print D/T: S: 04/11/2019 (4002) PAGE 2 Signed Report THYROID STIMULATING [id number] 22:52:00* Test Item Value Reference Range Interpretation Comme [facility] THYROID STIMULATING HORMONE (test code = TSH) 2.13 IU/ML 0.47-5.01 N Result is in International Units/milliliter [id number] 22:52:00* Test Item Value Reference Range Interpretation Comme nts TROPONIN-I (test code = TROPI) <0.02 NG/ML 0.00-0.06 N REFERENCE RANGE TROPONIN I HEALTHY INDIVIDUALS: <0.06 ng/mL R/O ISCHEMIA: 0.07 - 0.60 ng/mL CUT-OFF RANGE FOR AMI: 0.60 - 1.5 ng/mL PROTHROMBIN [id number] 22:50:00* Test Item Value Reference Range Interpretation Comme nts PROTHROMBIN TIME PATIENT (test code = PTP) 13.0 SECONDS 9.9-12.8 H INTERNATIONAL NORMAL RATIO (test code = INR) 1.1 0.89-1.14 N THE INR IS TO BE USED ONLY FOR MONITORING ORAL ANTICOAGULANTTHERAPY. THE FOLLOWING ARE SUGGESTED RANGES FROM THEAMERICAN COLLEGE OF CHEST PHYSICIANS:INDICATION INR VALUEPROPHYLAXIS OF VENOUS THROMBOSIS (ORTHOPEDIC SURGERY) 2.0 - 3.0PROPHYLAXIS OF VENOUS THROMBOSIS (OTHER THAN HIGH-RISK SURGERY) 2.0 - 3.0TREATMENT OF DEEP VEIN THROMBOSIS OR PULMONARY EMBOLISM 2.0 - 3.0PREVENTION OF SYSTEMIC EMBOLISM TISSUE HEART VALVES 2.0 - 3.0 ACUTE MYOCARDIAL INFARCTION (TO PREVENT SYSTEMIC EMBOLISM) 2.0 - 3.0 ACUTE MYOCARDIAL INFARCTION (TO PREVENT RECURRENT INFARCT) 2.5 - 3.0 VALVULAR HEART DISEASE 2.0 - 3.0 ATRIAL FIBRILATION 2.0 - 3.0BILEAFLET MECHANICAL VALVE IN AORTIC POSITION 2.0 - 3.0MECHANICAL PROSTHETIC VALVES (HIGH RISK) 2.5 - 3.5PRESENCE OF LUPUS ANTICOAGULANT OR ANTIPHOSPHOLIPID ANTIBODIES 2.5 - 3.5 SPECIMEN 4+ HEMOLYSISD-DIMER/[id number] 22:50:00* Test Item Value Reference Range Interpretation Comme nts D-DIMER/FSP (test code = DDIMER) 208 ng/mL 200.0-230.0 N Per manu facturer recommendation, the CUT OFFfor the Diagnosis of PE or DVT with a 100% SENSITIVITY &100% PREDICTIVE VALUE is suggested to be 230 ng/mL D-DIMERUNIT(DDU). D-DIMER RESULTS MAY BE AFFECTED BY:1. HEMOGLOBIN > 100 mg/dL2. BILIRUBIN > 10 mg/dL3. TRIGLYCERIDES > 1500 mg/dL4. The presence of RHEUMATIOID FACTOR may produce an overestimation of the test result. SPECIMEN 4+ HEMOLYSISCBC W/AUTO [id number] 22:30:00* Test Item Value Reference Range Interpretation Comme nts WHITE BLOOD CELL (test code = WBC) 12.5 K/mm3 4.5-11.0 H RED BLOOD CELL (test code = RBC) 4.62 M/mm3 4.40-5.90 N HEMOGLOBIN (test code = HGB) 14.0 gm/dL 13.0-17.0 N HEMATOCRIT (test code = HCT) 41.5 % 36.0-48.0 N MEAN CELL VOLUME (test code = MCV) 89.8 UM3 80.0-94.0 N MEAN CELL HGB (test code = MCH) 30.3 UUG 25.5-32.5 N MEAN CELL HGB CONCETRATION (test code = MCHC) 33.7 gm/dL 29.0-35.5 N RED CELL DISTRIBUTION WIDTH (test code = RDW) 12.1 % 11.5-15.0 N RED CELL DISTRIBUTION WIDTH SD (test code = RDW-SD) 39.5 fL 34.8-50.2 N PLATELET COUNT (test code = PLT) 299 K/mm3 150-400 N MEAN PLATELET VOLUME (test c ode = MPV) 10.0 fl 7.4-10.4 N NEUTROPHIL % (test code = NT%) 86.5 % 49.0-76.0 H IMMATURE GRANULOCYTE % (test code = IG%) 0.3 % 0.0-0.4 N LYMPHOCYTE % (test code = LY%) 7.4 % 23.0-38.0 L MONOCYTE % (test code = MO%) 4.7 % 1.0-10.0 N EOSINOPHIL % (test code = EO%) 0.8 % 1.0-5.0 L BASOPHIL % (test code = BA%) 0.3 % 0.0-1.0 N NEUTROPHIL # (test code = NT#) 10.8 K/mm3 2.4-6.3 H IMMATURE GRANULOCYTE # (test code = IG#) 0.04 x10 3/uL 0.00-0.07 N LYMPHOCYTE # (test code = LY#) 0.9 K/mm3 1.2-4.0 L MONOCYTE # (test code = MO#) 0.6 K/mm3 0.0-0.6 N EOSINOPHIL # (test code = EO#) 0.1 K/MM3 0.0-0.7 N BASOPHIL # (test code = BA#) 0.0 K/mm3 0.0-0.2 N - XR CHEST 1 [id number] 00:04:00FAX: Tracey Allen [employer] [phone] [place]: ANNE-MARIE St: REG Name: BJORN TESFAYE [facility] : 1995 Age/S: 23/M [address] [facility] Unit #: [id number] Loc: [place] [facility]: Tracey Allen [employer] [id number] Acct: [id number] Dis Date: Status: REG ER PHONE #: [phone] Exam Date: 019 2345 FAX #: [phone] Reason: CHEST PAIN EXAMS: CPT CODE: [id number] XR CHEST 1 V 59990 EXAM: - XR CHEST 1 V HISTORY: [...] and signed by: Levon Thomas M.D. CC: Korina MARTINEZ Technologist: NIKOLAI HARRISON [facility] Date/Time/By: 03/03/2019 (0004) : By: [email or web address] PAGE 1 Signed Report FAX: Tracey Allen MICHELLE [phone] [place]: St: REG Name: BJORN TESFAYE [facility] : 1995 Age/S: 23/M [address] [facility] Unit #: [id number] Loc: [place], [place] Phys: Dom Allenna [employer] [id number] Acct: [id number] Dis Date: Status: REG ER PHONE #: [phone] Exam Date: 03/02/2019 2345 FAX #: [phone] Reason: CHEST PAIN EXAMS: CPT CODE: [id number] XR CHEST 1 V 39937 (Continued) Orig Print D/T: S: 03/03/2019 (0007) PAGE 2 Signed ReportCOMPREHENSIVE METABOLIC [id number] 00:02:00* Test Item Value Reference Range Interpretation Comme nts SODIUM (test code = NA) 139 mmol/l 134.0-147.0 N POTASSIUM (test code = K) 3.9 mmol/L 3.6-5.2 N CHLORIDE (test code = CL) 104 mmol/l 98.0-107.0 N CARBON DIOXIDE (test code = CO2) 28.7 mmol/l 21.0-33.0 N ANION GAP (test code = GAP) 10.2 0-20 N GLUCOSE (test code = GLU) 104 mg/dl 70.0-110.0 N BLOOD UREA NITROGEN (test co de = BUN) 12 mg/dl 7.0-18.0 N CREATININE (test code = CREAT) 1.01 mg/dL 0.60-1.30 N GFR NON BLACK (test code = GFRNONBLACK) 97 mL/min 110-120 L GFR BLACK (test code = GFRBLACK) 118 mL/min 133-145 L TOTAL PROTEIN (test code = PROT) 6.9 GM/DL 6.0-8.1 N ALBUMIN (test code = ALB) 3.8 gm/dL 3.2-4.7 N CALCIUM (test code = CA) 9.0 mg/dl 8.0-10.5 N BILIRUBIN TOTAL (test code = BILT) 0.1 mg/dl 0.0-1.0 N SGOT/AST (test code = AST) 18 Units/L 15.0-37.0 N SGPT/ALT (test code = ALT) 48 Units/L 12.0-78.0 N ALKALINE PHOSPHATASE TOTAL ( test code = ALKP) 100 Units/L 50.0-136.0 N CARDIAC ENZYMES [id number] 00:02:00* Test Item Value Reference Range Interpretation Comme nts CREATINE KINASE (CK) (test code = CK) 145 Units/L 39-308 N TROPONIN-I (test code = TROPI) <0.02 NG/ML 0.00-0.06 N REFERENCE RANGE TROPONIN I HEALTHY INDIVIDUALS: <0.06 ng/mL R/O ISCHEMIA: 0.07 - 0.60 ng/mL CUT-OFF RANGE FOR AMI: 0.60 - 1.5 ng/mL PROTHROMBIN [id number] 23:55:00* Test Item Value Reference Range Interpretation Comme [facility] PROTHROMBIN TIME PATIENT (test code = PTP) 11.1 SECONDS 9.9-12.8 N INTERNATIONAL NORMAL RATIO (test code = INR) 0.9 0.89-1.14 N THE INR IS TO BE USED ONLY FOR MONITORING ORAL ANTICOAGULANTTHERAPY. THE FOLLOWING ARE SUGGESTED RANGES FROM THEARIZ[facility] STATE HOSPITALAN COLLEGE OF CHEST PHYSICIANS:INDICATION INR VALUEPROPHYLAXIS OF VENOUS THROMBOSIS (ORTHOPEDIC SURGERY) 2.0 - 3.0PROPHYLAXIS OF VENOUS THROMBOSIS (OTHER THAN HIGH-RISK SURGERY) 2.0 - 3.0TREATMENT OF DEEP VEIN THROMBOSIS OR PULMONARY EMBOLISM 2.0 - 3.0PREVENTION OF SYSTEMIC EMBOLISM TISSUE HEART VALVES 2.0 - 3.0 ACUTE MYOCARDIAL INFARCTION (TO PREVENT SYSTEMIC EMBOLISM) 2.0 - 3.0 ACUTE MYOCARDIAL INFARCTION (TO PREVENT RECURRENT INFARCT) 2.5 - 3.0 VALVULAR HEART DISEASE 2.0 - 3.0 ATRIAL FIBRILATION 2.0 - 3.0BILEAFLET MECHANICAL VALVE IN AORTIC POSITION 2.0 - 3.0MECHANICAL PROSTHETIC VALVES (HIGH RISK) 2.5 - 3.5PRESENCE OF LUPUS ANTICOAGULANT OR ANTIPHOSPHOLIPID ANTIBODIES 2.5 - 3.5 THROMBOPLASTIN TIME [id number] 23:55:00* Test Item Value Reference Range Interpretation [facility] TH[facility] PARTIAL (test code = PTT) 31.20 SECONDS 25.86-36.07 N [facility] Therapeutic Range - APTT of 55.8-85.4 secondscorrelates with plasma heparin concentration of 0.2-0.4 u/mL New range effective - 12/17/2016 TROPONIN I [id number] 23:53:00* Test Item Value Reference Range Interpretation [facility] TROPONIN I RAPID (test code = TROPIRAP) 0.00 0.00-0.08 N Negative: <= 0.0 8 Positive: >= 0.09An elevated troponin value alone is not sufficient todiagnose a myocardial infarction. Rather, the patient'sclinical presentation (history, physical exam) and ECGshould be used in conjunction with troponin in thediagnostic evaluation of suspected myocardial infarction.A serial sampling protocol is recommended to facilitatethe identification of temporal changes in troponin levelscharacteristic of NE. COMPREHENSIVE METABOLIC [id number] 23:53:00* Test Item Value Reference Range Interpretation Comme nts SODIUM (test code = NA) 139 mmol/l 134.0-147.0 N POTASSIUM (test code = K) 3.9 mmol/L 3.6-5.2 N CHLORIDE (test code = CL) 104 mmol/l 98.0-107.0 N CARBON DIOXIDE (test code = CO2) 28.7 mmol/l 21.0-33.0 N ANION GAP (test code = GAP) 10.2 0-20 N GLUCOSE (test code = GLU) mg/dl 70.0-110.0 BLOOD UREA NITROGEN (test co de = BUN) mg/dl 7.0-18.0 CREATININE (test code = CREAT) mg/dL 0.60-1.30 GFR NON BLACK (test code = GFRNONBLACK) mL/min 110-120 GFR BLACK (test code = GFRBLACK) mL/min 133-145 TOTAL PROTEIN (test code = PROT) gm/dL 6.4-8.2 ALBUMIN (test code = ALB) gm/dl 3.2-4.7 CALCIUM (test code = CA) mg/dl 8.0-10.5 BILIRUBIN TOTAL (test code = BILT) mg/dl 0.0-1.0 SGOT/AST (test code = AST) Units/L 15.0-37.0 SGPT/ALT (test code = ALT) Units/L 12.0-78.0 ALKALINE PHOSPHATASE TOTAL ( test code = ALKP) Units/L 50.0-136.0 CARDIAC ENZYMES [id number] 23:53:00* Test Item Value Reference Range Interpretation Comme nts CREATINE KINASE (CK) (test code = CK) Units/L 39-308 TROPONIN-I (test code = TROPI) NG/ML 0.00-0.06 CBC W/AUTO [id number] 23:50:00* Test Item Value Reference Range Interpretation Comme nts WHITE BLOOD CELL (test code = WBC) 9.9 K/mm3 4.5-11.0 N RED BLOOD CELL (test code = RBC) 4.58 M/mm3 4.40-5.90 N HEMOGLOBIN (test code = HGB) 13.8 gm/dL 13.0-17.0 N HEMATOCRIT (test code = HCT) 41.0 % 36.0-48.0 N MEAN CELL VOLUME (test code = MCV) 89.5 UM3 80.0-94.0 N MEAN CELL HGB (test code = MCH) 30.1 UUG 25.5-32.5 N MEAN CELL HGB CONCETRATION (test code = MCHC) 33.7 gm/dL 29.0-35.5 N RED CELL DISTRIBUTION WIDTH (test code = RDW) 11.9 % 11.5-15.0 N RED CELL DISTRIBUTION WIDTH SD (test code = RDW-SD) 38.7 fL 34.8-50.2 N PLATELET COUNT (test code = PLT) 298 K/mm3 150-400 N MEAN PLATELET VOLUME (test c ode = MPV) 9.8 fl 7.4-10.4 N NEUTROPHIL % (test code = NT%) 58.6 % 49.0-76.0 N IMMATURE GRANULOCYTE % (test code = IG%) 0.2 % 0.0-0.4 N LYMPHOCYTE % (test code = LY%) 31.4 % 23.0-38.0 N MONOCYTE % (test code = MO%) 6.3 % 1.0-10.0 N EOSINOPHIL % (test code = EO%) 3.0 % 1.0-5.0 N BASOPHIL % (test code = BA%) 0.5 % 0.0-1.0 N NEUTROPHIL # (test code = NT#) 5.8 K/mm3 2.4-6.3 N IMMATURE GRANULOCYTE # (test code = IG#) 0.02 x10 3/uL 0.00-0.07 N LYMPHOCYTE # (test code = LY#) 3.1 K/mm3 1.2-4.0 N MONOCYTE # (test code = MO#) 0.6 K/mm3 0.0-0.6 N EOSINOPHIL # (test code = EO#) 0.3 K/MM3 0.0-0.7 N BASOPHIL # (test code = BA#) 0.1 K/mm3 0.0-0.2 N Notes Date/Time Note Provider Source 2019-04-11 22:11:00 [id number] 1:00 [facility] ([facility])EMERGENCY PROVIDER REPORTREPORT#:[id number] REPORT STATUS: SignedDATE:04/11/19 TIME: 2210 PATIENT: BJORN TESFAYE UNIT #: [id number]#: [id number] ROOM/BED:AGE: 23 SEX: M PCP PHYS: No Primary or Family PhysicianSERVICE AUTHOR: Addison Kim MD * ALL edits or amendments must be made on the electronic/computer document * HPI-Chest Pain Under 40 GeneralConfirmed Patient YesInitial Greet Date/Time 04/11/192152 PresentationChief Complaint Chest painHx Obtained From PatientSudden in Onset? YesOnset Occurred Hours ago (3)Symptom Duration Since onsetProgression since Onset Constant, Gradually improvingLocation Chest LQuality SharpRadiationArm L. )( Migration/Movement NoneSeverity: Onset ModerateSeverity: Current MildAssociated withReports: Dizziness. Denies: Cough, productive, Fever, Nausea, Shortness of breath, Vomiting. Exacerbated by NothingRelieved by Nothing Free Text HPI NotesFree Text HPI Notes23 y/o male with no known PMHx presents to the ED c/o sharp L-sided CP radiatingdown L arm onset 3 hours ago. Pt states he was placing cande in his trailer when pain presented. Pt reports associated sx of fever (Tmax 103 F) and dizziness, but denies N/V. Pt notes that he was seen at an Urgent Care earlier, but was advised to seek help in the ED d/t c/o CP. Portions of this section were scribed by Ines Marie on 04/11/19 at 2325 Risk-Chest Pain Under 40 Risk Stratification)( Coronary Artery Disease Risk factors reviewed, Smoking)( Pulmonary Embolism Risk factors reviewed)( AMI-Aspirin Aspirin Last 24 Hrs None)( HEART for MACE )( HEART for MACE Response Value History Low index of suspicion 0 ECG Interpretation Normal ECG 0 Age Age under 45 0 Risk Factors for CAD 1-2 CAD risk factors 1 Troponin < or = to NL troponin 0 Total 1 HEART Score for MACE 0-3 (low risk 0.9%-1.7%) Portions of this section were scribed by Ines Marie on 04/11/19 at 2216 Review of Systems ROS StatementsAll systems rev neg except as marked. Focused Review of SystemsConstitutionalReports: Fever. Denies: Chills, Lethargy. RespiratoryDenies: Cough, non-productive, Cough, productive, Shortness of breath. CardiovascularReports: Chest pain. Denies: Edema, Palpitations. GIDenies: Nausea, Vomiting. MusculoskeletalReports: Extremity pain (L arm). Denies: Extremity swelling. SkinDenies: Diaphoresis, Rash, Swelling. NeurologicReports: Dizziness. Denies: Change LOC, Focal weakness, Headache. Additional Review of SystemsEars/Nose/ThroatReports: Sore throat. Denies: Nasal congestion, Nose bleeding. HematologicDenies: Bleeding, Bruising. Portions of this section were scribed by Ines Marie on 04/11/19 at 2216 Past Medical History - AdultStated Complaint CHEST PAIN, DIZZINESSAllergiesCoded Allergies:No Known Allergies (03/02/19) Home MedicationsReported MedicationsNo Known Home Medications Review of Nursing Notes Rev avail, and agreePt reports no significant: Past medical history, Past surgical historySmoking status for patients 13 years old or older: Current every day smoker Portions of this section were scribed by Ines Marie on 04/11/19 at 2216 Physical Exam Vital SignsVital SignsFirst Documented: Result Date Time Pulse Ox 98 04/11 2153 B/P 140/79 04/11 2153 B/P Mean 99 04/11 2153 Temp 98.2 04/11 2153 Pulse 108 04/11 2153 Resp 04/11 Last Documented: Result Date Time Pulse Ox 99 04/11 2300 B/P 118/63 04/11 2300 B/P Mean 81 04/11 2300 Temp 98.0 04/11 2300 Pulse 99 04/11 2300 Resp 04/11 Review of Vital Signs Reviewed Focused PEGeneral/Const General/Const Awake, Alert, Well developedEyes Eyes PERRL, No periorbital swelling, Conjunctiva NLMS Neck Neck No adenopathy, No JVD, Thyroid NL, No tracheal deviationResp/Chest Respiratory/Chest Breath sounds NL, Breath sounds = bilat, No respiratory distressCardiovascular Cardiovascular Regular rhythm, Heart sounds NL, Cap refill not delayed, Pulses = bilaterally Heart Rate/Rhythm Tachycardia. Abdomen/GI Abdomen/GI Soft, Non-tender, No guarding, BS normoactive, No distentionMS Lower Extrem Lower Ext/Pelvis/MS No swelling, Non-tenderSkin Skin Color NL, Warm, DryNeurologic Neurologic Oriented X3, Speech NL Additional PEEars/Nose/Throat Ears/Nose/Throat Airway patent, Mucous membranes moist, Pharynx NL Portions of this section were scribed by Ines Marie on 04/11/19 at 2216 Interpretation Diagnostics Lab Results InterpretationResultsLaboratory Tests 04/11/192218:[Embedded Image Not Available]Laboratory Tests: 04/11 2219 Chemistry Sodium (134.0 - 147.0 mmol/l) 137 Potassium (3.6 - 5.2 mmol/L) 3.6 Chloride (98.0 - 107.0 mmol/l) 100 Carbon Dioxide (21.0 - 33.0 mmol/l) 29.6 Anion Gap (0 - 20) 11.0 BUN (7.0 - 18.0 mg/dl) 10 Creatinine (0.60 - 1.30 mg/dL) 1.09 Est GFR ( Amer) (133 - 145 mL/min) 108 L Est GFR (Non-Af Amer) (110 - 120 mL/min) 89 L Glucose (70.0 - 110.0 mg/dl) 78 Calcium (8.0 - 10.5 mg/dl) 8.7 Total Bilirubin (0.0 - 1.0 mg/dl) 0.4 AST (15.0 - 37.0 Units/L) 26 ALT (12.0 - 78.0 Units/L) 59 Total Alk Phosphatase (50.0 - 136.0 Units/L) 94 Troponin I (0.00 - 0.06 NG/ML) <0.02 Total Protein (6.4 - 8.2 gm/dL) 7.6 Albumin (3.2 - 4.7 gm/dl) 4.1 TSH (0.47 - 5.01 IU/ML) 2.13 Coagulation INR (0.89 - 1.14) 1.1 PT Patient/Control Mix (9.9 - 12.8 SECONDS) 13.0 H D-Dimer (200.0 - 230.0 ng/mL) 208 Hematology WBC (4.5 - 11.0 K/mm3) 12.5 H RBC (4.40 - 5.90 M/mm3) 4.62 Hgb (13.0 - 17.0 gm/dL) 14.0 Hct (36.0 - 48.0 %) 41.5 MCV (80.0 - 94.0 UM3) 89.8 MCH (25.5 - 32.5 UUG) 30.3 MCHC (29.0 - 35.5 gm/dL) 33.7 RDW (11.5 - 15.0 %) 12.1 Plt Count (150 - 400 K/mm3) 299 MPV (7.4 - 10.4 fl) 10.0 Neut % (Auto) (49.0 - 76.0 %) 86.5 H Lymph % (Auto) (23.0 - 38.0 %) 7.4 L [place] % (Auto) (1.0 - 10.0 %) 4.7 Eos % (Auto) (1.0 - 5.0 %) 0.8 L Baso % (Auto) (0.0 - 1.0 %) 0.3 Neut # (Auto) (2.4 - 6.3 K/mm3) 10.8 H Lymph # (Auto) (1.2 - 4.0 K/mm3) 0.9 L [place] # (Auto) (0.0 - 0.6 K/mm3) 0.6 Eos # (Auto) (0.0 - 0.7 K/MM3) 0.1 Baso # (Auto) (0.0 - 0.2 K/mm3) 0.0 Immature Gran % (0.0 - 0.4 %) 0.3 Immature Gran # (0.00 - 0.07 x10 3/uL) 0.04 Recent Impressions:RADIOLOGY - XR CHEST 1 V 04/11 2251 Report Impression - Status: SIGNED Entered: 04/11/2019 2617 IMPRESSION: No active pulmonary findings.Impression By: [email or web address] - Hany Arcos M.D. Lab Imaging StatementLaboratory radiographic studies reviewed and considered in the medical decision-making. Point of Care TestingPulse Oximetry Pulse Ox % 98 On: Room air Interpretation Interpreted by me, Pulse oximetry normal Time 2152 ECG #1 InterpretationECG Documented in MUSE YesDate 04/11/19Time 2149Interpreted by ED physicianNL ECG Interpretation Normal sinus rhythm, No STEMI, Normal QRS, Normal ST waves, Normal axis, Normal intervalsRate 109Rhythm Tachycardia RadiographyX-Ray Chest View 1 view Interpretation/Wet Read by Interpret - Radiologist Reviewed by ED physician Portions of this section were scribed by Ines Marie on 04/11/19 at 2325 Re-Evaluation MDM Re-Evaluation/Progress #1Text/Dict NoteHR improved to 97 BPM. Time of Re-Eval 2325Re-Eval Status ImprovedEval Following Treatment Pt. feels betterPlan Post Re-Eval Plan discharge ED CourseMedication(s) OrderedMedication(s) Ordered:Central Nervous System Agents Sig/Dora Start time Last Medication Dose Route Stop Time Status Admin Ketorolac 30 MG X1ED STA 04/11 2212 DC 04/11 Tromethamine IV 04/11 2213 2224 Portions of this section were scribed by Ines Marie on 04/11/19 at 2325 Patient Discharge Departure Vital Signs/ConditionVital SignsFirst Documented: Result Date Time Pulse Ox 98 04/11 2153 B/P 140/79 04/11 215 B/P Mean 99 04/11 215 Temp 98.2 04/11 2153 Pulse 108 04/11 2153 Resp 19 04/113 Last Documented: Result Date Time Pulse Ox 99 04/11 2300 B/P 118/63 04/11 2300 B/P Mean 81 04/11 2300 Temp 98.0 04/11 2300 Pulse 99 04/11 2300 Resp 19 04/11 2300 All vital signs available at the time of this entry have been reviewed. Condition Stable Clinical ImpressionClinical ImpressionPrimary Impression: Chest wall painSecondary Impressions: Dizziness Disposition DecisionDischarge )( Discharged to Home Yes )( Time 2325 )( Date 04/11/19 Discharge/Care PlanCounseled Regarding Lab results, Imaging studies, Need for follow-up, Smoking cessation, When to return to ED Quality [id number] ECG for CP Performed documentedSmoking Cessation Screened, tobacco user, Tobacco cess intervention Supervising Physician Note Scribe StatementInes Marie, 04/11/198, scribing for and in the presence of Dr. Kim.Signed By: Ines Marie, 04/11/192217 Provider Scribed StatementI personally performed the services described in this documentation and reviewedthe documentation that was dictated to the scribe(s) in my presence, and it accurately records my words and actions. Addison Kim, 04/12/19 Portions of this section were scribed by Ines Marie on 04/11/19 at 2325 at 0439RPT #:[id number] OF REPORTEDEmergency department [id number]:11:00E.[id number] ilable for patient [id number]:40:12 [facility] 2019-03-02 23:44:00 [id number] Dnsob2Bopd+[id number]:4 4:00 [facility] PROVID[facility] REPORTREPORT#:[id number] REPORT STATUS: SignedDATE:03/02/19 TIME: 2343 PATIENT: BJORN TESFAYE UNIT #: [id number]#: [id number] ROOM/BED:AGE: 23 SEX: M PCP PHYS: No Primary or Family PhysicianSERVICE AUTHOR: Tracey Allen BODY WORK AUTO TRIMMER * ALL edits or amendments must be made on the electronic/computer document * Tracey Allen 03/02/194:HPI-Chest Pain Under 40 GeneralConfirmed Patient YesPatient Type Existing patientInitial Greet Date/Time 03/02/19 2325Assumed Care at Time 2330PCPNone PresentationChief Complaint Chest painHx Obtained From PatientSudden in Onset? YesOnset Occurred Today, Just prior to arrivalSymptom Duration ConstantLocation Chest LQuality SharpSeverity: Onset Pain level 7 out of 10Severity: Current Pain level 7 out of 10 ContextSimilar Sx Previous Yes Free Text HPI NotesFree Text HPI NotesPatient is a 23 year old male that presents with left sided chest painx 30 min. Patient states that he was in a recliner when he felt a sharp pain to the left side of chest. Does not worsen with inspirations. Patient states this has happened 1 month ago and resolved Risk-Chest Pain Under 40 Risk Stratification)( Coronary Artery Disease Smoking)( Pulmonary Embolism Risk factors reviewed, No risk factors)( HEART for MACE )( HEART for MACE Response Value History Low index of suspicion 0 ECG Interpretation Normal ECG 0 Age Age under 45 0 Risk Factors for CAD 1-2 CAD risk factors 1 Troponin 1 to 3x NL troponin 1 Total 2 Review of Systems ROS StatementsAll systems rev neg except as marked.Complete sys rev neg except as marked. Focused Review of SystemsConstitutionalDenies: Chills, Fever, Malaise, Weakness - generalized. RespiratoryDenies: Cough, non-productive, Cough, productive, Pleuritic pain, Shortness of breath, Wheezing. CardiovascularReports: Chest pain. Denies: Dyspnea on exertion, Palpitations, Syncope. GIReports: Vomiting. Denies: Abdominal pain, Constipation, Nausea. MusculoskeletalDenies: Back pain, Extremity pain, Extremity swelling, Thoracic pain. SkinDenies: Abrasion, Contusion, Itching, Laceration. NeurologicDenies: Abnormal movement, Bladder dysfunction, Bowel dysfunction, Change LOC, Confusion, Dizziness, Shaking, Slurred speech, Syncope. PsychiatricDenies: Anxiety, Change mental status, Confusion, Delusional. Additional Review of SystemsEyesDenies: Blurred bilat, Diplopia, Discharge bilat, Eye pain bilat, Photophobia. Past Medical History - AdultStated Complaint "I'M HAVING CHEST PAIN AND MY LEFT ARM IS NUMB."AllergiesCoded Allergies:No Known Allergies (03/02/19) Home MedicationsReported MedicationsNo Known Home Medications Review of Nursing Notes Rev avail, and agreeSmoking status for patients 13 years old or older: Current every day smoker Physical Exam Vital SignsVital Signs Review of Vital Signs Reviewed Focused PEGeneral/Const General/Const Awake, Alert, No acute distress, Well appearing, Well developed, Well hydrated, Well nourished, Cooperative, Not toxic appearingEyes Eyes Atraumatic, PERRL, No periorbital redness, No periorbital swellingMS Neck Neck Atraumatic, Supple, No meningismusResp/Chest Respiratory/Chest Atraumatic, Breath sounds NL, Breath sounds = bilat, No respiratory distress, No wheezingCardiovascular Cardiovascular Heart rate NL, Regular rhythm, Heart sounds NL, No murmurs, Cap refill not delayedAbdomen/GI Abdomen/GI Atraumatic, Soft, Non-tender, BS normoactiveMS Back Back Atraumatic, Inspection NL, Full range of motionMS Lower Extrem Lower Ext/Pelvis/MS Atraumatic, Inspection NL, Full range of motionSkin Skin Atraumatic, Color NL, No rash, IntactNeurologic Neurologic Oriented X3, Speech NL, No motor deficits, Memory NLPsychiatric Psychiatric Affect NL, Mood NL, Not suicidal Interpretation Diagnostics Lab Results InterpretationResultsLaboratory Tests 03/02/19 2337:[Embedded Image Not Available]Laboratory Tests: 03/02 03/02 2339 2337 Chemistry Sodium (134.0 - 147.0 mmol/l) 139 Potassium (3.6 - 5.2 mmol/L) 3.9 Chloride (98.0 - 107.0 mmol/l) 104 Carbon Dioxide (21.0 - 33.0 mmol/l) 28.7 Anion Gap (0 - 20) 10.2 BUN (7.0 - 18.0 mg/dl) 12 Creatinine (0.60 - 1.30 mg/dL) 1.01 Est GFR ( Amer) (133 - 145 mL/min) 118 L Est GFR (Non-Af Amer) (110 - 120 mL/min) 97 L Glucose (70.0 - 110.0 mg/dl) 104 Calcium (8.0 - 10.5 mg/dl) 9.0 Total Bilirubin (0.0 - 1.0 mg/dl) 0.1 AST (15.0 - 37.0 Units/L) 18 ALT (12.0 - 78.0 Units/L) 48 Total Alk Phosphatase (50.0 - 136.0 Units/L) 100 Total Creatine Kinase (39 - 308 Units/L) 145 Rapid Troponin I (0.00 - 0.08) 0.00 Troponin I (0.00 - 0.06 NG/ML) <0.02 Total Protein (6.0 - 8.1 GM/DL) 6.9 Albumin (3.2 - 4.7 gm/dL) 3.8 Coagulation INR (0.89 - 1.14) 0.9 PTT ([place]) (25.86 - 36.07 SECONDS) 31.20 PT Patient/Control Mix (9.9 - 12.8 SECONDS) 11.1 Hematology WBC (4.5 - 11.0 K/mm3) 9.9 RBC (4.40 - 5.90 M/mm3) 4.58 Hgb (13.0 - 17.0 gm/dL) 13.8 Hct (36.0 - 48.0 %) 41.0 MCV (80.0 - 94.0 UM3) 89.5 MCH (25.5 - 32.5 UUG) 30.1 MCHC (29.0 - 35.5 gm/dL) 33.7 RDW (11.5 - 15.0 %) 11.9 Plt Count (150 - 400 K/mm3) 298 MPV (7.4 - 10.4 fl) 9.8 Neut % (Auto) (49.0 - 76.0 %) 58.6 Lymph % (Auto) (23.0 - 38.0 %) 31.4 [place] % (Auto) (1.0 - 10.0 %) 6.3 Eos % (Auto) (1.0 - 5.0 %) 3.0 Baso % (Auto) (0.0 - 1.0 %) 0.5 Neut # (Auto) (2.4 - 6.3 K/mm3) 5.8 Lymph # (Auto) (1.2 - 4.0 K/mm3) 3.1 [place] # (Auto) (0.0 - 0.6 K/mm3) 0.6 Eos # (Auto) (0.0 - 0.7 K/MM3) 0.3 Baso # (Auto) (0.0 - 0.2 K/mm3) 0.1 Immature Gran % (0.0 - 0.4 %) 0.2 Immature Gran # (0.00 - 0.07 x10 3/uL) 0.02 Recent Impressions:RADIOLOGY - XR CHEST 1 V 03/02 2340 Report Impression - Status: SIGNED Entered: 03/03/2019 0007 IMPRESSION:No radiographic evidence of acute cardiopulmonary process.Impression By: Ketty - Levon Thomas M.D. Lab Imaging StatementLaboratory radiographic studies reviewed and considered in the medical decision-making. Point of Care TestingPulse Oximetry Pulse Ox % 100 On: Room airRhythm Strip Interpretation Time 2346 Rate 79 Rhythm Strip Interpretation Normal sinus rhythm Re-Evaluation MDM Free Text MDM NotesFree Text MDM [id number] Discussed all results with oanh Duque to DC home Differential DiagnosisDifferential Diagnosis Acute coronary syndrome, Acute myocardial infarct, Anxiety disorder, Bronchitis, Chest pain, Chest pain, acute, Contusion Patient Discharge Departure Vital Signs/ConditionVital Signs Condition Stable Clinical ImpressionClinical ImpressionPrimary Impression: Chest pain, atypical Disposition DecisionDischarge )( Discharged to Home Yes )( Time 0015 )( Date 03/03/19 Discharge/Care PlanCounseled Regarding Diagnosis, Lab results, Medication changes, Prescriptions, Need for follow-up, Smoking cessation, When to return to EDPrescriptionsnaproxenPrescriptions Reviewed Risks, Benefits Discharge NoteI have spoken with the patient and/or caregivers. I have explained the patient'scondition, diagnoses and treatment plan based on the information available to meat this time. I have answered the patient's and/or caregiver's questions and addressed any concerns. The patient and/or caregivers have as good an understanding of the patient's diagnosis, condition and treatment plan as can beexpected at this point. The vital signs have been stable. The patient's condition is stable and appropriate for discharge from the emergency department. The patient will pursue further outpatient evaluation with the primary care physician or other designated or consulting physician as outlined in the discharge instructions. The patient and/or caregivers are agreeable to this planof care and follow-up instructions have been explained in detail. The patient and/or caregivers have received these instructions in written format and have expressed an understanding of the discharge instructions. The patient and/or caregivers are aware that any significant change in condition or worsening of symptoms should prompt an immediate return to this or the closest emergency department or a call to 911. Arron Polk 03/03/19 0020:Physical Exam Vital SignsVital SignsFirst Documented: Result Date Time Pulse Ox 100 / 2319 B/P 134/67 05/ 2319 B/P Mean 89 / 2319 O2 Delivery Room air 03/02 231 Temp 37.2 05/ 2319 Pulse 67 05/ 2319 Resp 16 03/02 2319 Last Documented: Result Date Time Pulse Ox 97 05/ 0045 B/P 137/77 05/ 0045 B/P Mean 97 03/03 0045 O2 Delivery Room air 03/03 0045 Temp 37.2 03/03 0045 Pulse 70 05/ 0045 Resp 24 03/03 0045 Interpretation Diagnostics Lab Results InterpretationResults Patient Discharge Departure Vital Signs/ConditionVital SignsFirst Documented: Result Date Time Pulse Ox 100 05/ 2319 B/P 134/67 / 2319 B/P Mean 89 05/12 2319 O2 Delivery Room air 03/02 231 Temp 37.2 / 2319 Pulse 67 05/ 2319 Resp 16 03/02 231 Last Documented: Result Date Time Pulse Ox 97 03/03 0045 B/P 137/77 / 0045 B/P Mean 97 03/03 0045 O2 Delivery Room air 03/03 0045 Temp 37.2 / 0045 Pulse 70 03/03 0045 Resp 24 03/03 0045 All vital signs available at the time of this entry have been reviewed. Supervising Physician Note MidLv Saw Pt AloneI have reviewed the PA/BODY WORK AUTO TRIMMER's note and plan of care. I was available for consultation as needed at all times during the patient's visit in the emergency department. I agree with the clinical impression, plan and disposition. at 0157RPT #:[id number] OF REPORTEDEmergen department [id number]:44:00E.[id number] ilable for patient [id number]F70:58:01 [facility] 2019-03-02 23:44:00 [id number]+[id number] [id number]0026-75-63C51:4 4:00 [facility] ([facility])EMERGENCY PROVIDER REPORTREPORT#:[id number] REPORT STATUS: SignedDATE:03/02/19 TIME: 2343 PATIENT: BJORN TESFAYE UNIT #: [id number]#: [id number] ROOM/BED:AGE: 23 SEX: M PCP PHYS: No Primary or Family PhysicianSERVICE AUTHOR: Tracey Allen BODY WORK AUTO TRIMMER * ALL edits or amendments must be made on the electronic/computer document * Tracey Allen 03/02/19 2344:HPI-Chest Pain Under 40 GeneralConfirmed Patient YesPatient Type Existing patientAssumed Care at Time 0PCPNone PresentationChief Complaint Chest painHx Obtained From PatientSudden in Onset? YesOnset Occurred Today, Just prior to arrivalSymptom Duration ConstantLocation Chest LQuality SharpSeverity: Onset Pain level 7 out of 10Severity: Current Pain level 7 out of 10 ContextSimilar Sx Previous Yes Free Text HPI NotesFree Text HPI NotesPatient is a 23 year old male that presents with left sided chest painx 30 min. Patient states that he was in a recliner when he felt a sharp pain to the left side of chest. Does not worsen with inspirations. Patient states this has happened 1 month ago and resolved Risk-Chest Pain Under 40 Risk Stratification)( Coronary Artery Disease Smoking)( Pulmonary Embolism Risk factors reviewed, No risk factors)( HEART for MACE )( HEART for MACE Response Value History Low index of suspicion 0 ECG Interpretation Normal ECG 0 Age Age under 45 0 Risk Factors for CAD 1-2 CAD risk factors 1 Troponin 1 to 3x NL troponin 1 Total 2 Review of Systems ROS StatementsAll systems rev neg except as marked.Complete sys rev neg except as marked. Focused Review of SystemsConstitutionalDenies: Chills, Fever, Malaise, Weakness - generalized. RespiratoryDenies: Cough, non-productive, Cough, productive, Pleuritic pain, Shortness of breath, Wheezing. CardiovascularReports: Chest pain. Denies: Dyspnea on exertion, Palpitations, Syncope. GIReports: Vomiting. Denies: Abdominal pain, Constipation, Nausea. MusculoskeletalDenies: Back pain, Extremity pain, Extremity swelling, Thoracic pain. SkinDenies: Abrasion, Contusion, Itching, Laceration. NeurologicDenies: Abnormal movement, Bladder dysfunction, Bowel dysfunction, Change LOC, Confusion, Dizziness, Shaking, Slurred speech, Syncope. PsychiatricDenies: Anxiety, Change mental status, Confusion, Delusional. Additional Review of SystemsEyesDenies: Blurred bilat, Diplopia, Discharge bilat, Eye pain bilat, Photophobia. Past Medical History - AdultStated Complaint "I'M HAVING CHEST PAIN AND MY LEFT ARM IS NUMB."AllergiesCoded Allergies:No Known Allergies (03/02/19) Home MedicationsReported MedicationsNo Known Home Medications Review of Nursing Notes Rev avail, and agreeSmoking status for patients 13 years old or older: Current every day smoker Physical Exam Vital SignsVital SignsFirst Documented: Result Date Time Pulse Ox 100 03/02 2319 B/P 134/67 03/02 2319 B/P Mean 89 03/02 2319 O2 Delivery Room air 03/02 2319 Temp 37.2 03/02 2319 Pulse 67 03/02 231 Resp 16 03/02 2319 Last Documented: Result Date Time Pulse Ox 97 03/03 0045 B/P 137/77 03/03 0045 B/P Mean 97 03/03 0045 O2 Delivery Room air 03/03 0045 Temp 37.2 03/035 Pulse 70 03/03 0045 Resp 24 03/03 0045 Review of Vital Signs Reviewed Focused PEGeneral/Const General/Const Awake, Alert, No acute distress, Well appearing, Well developed, Well hydrated, Well nourished, Cooperative, Not toxic appearingEyes Eyes Atraumatic, PERRL, No periorbital redness, No periorbital swellingMS Neck Neck Atraumatic, Supple, No meningismusResp/Chest Respiratory/Chest Atraumatic, Breath sounds NL, Breath sounds = bilat, No respiratory distress, No wheezingCardiovascular Cardiovascular Heart rate NL, Regular rhythm, Heart sounds NL, No murmurs, Cap refill not delayedAbdomen/GI Abdomen/GI Atraumatic, Soft, Non-tender, BS normoactiveMS Back Back Atraumatic, Inspection NL, Full range of motionMS Lower Extrem Lower Ext/Pelvis/MS Atraumatic, Inspection NL, Full range of motionSkin Skin Atraumatic, Color NL, No rash, IntactNeurologic Neurologic Oriented X3, Speech NL, No motor deficits, Memory NLPsychiatric Psychiatric Affect NL, Mood NL, Not suicidal Interpretation Diagnostics Lab Results InterpretationResultsLaboratory Tests 03/02/192336:[Embedded Image Not Available]Laboratory Tests: 03/02 03/02 8909 2337 Chemistry Sodium (134.0 - 147.0 mmol/l) 139 Potassium (3.6 - 5.2 mmol/L) 3.9 Chloride (98.0 - 107.0 mmol/l) 104 Carbon Dioxide (21.0 - 33.0 mmol/l) 28.7 Anion Gap (0 - 20) 10.2 BUN (7.0 - 18.0 mg/dl) 12 Creatinine (0.60 - 1.30 mg/dL) 1.01 Est GFR ( Amer) (133 - 145 mL/min) 118 L Est GFR (Non-Af Amer) (110 - 120 mL/min) 97 L Glucose (70.0 - 110.0 mg/dl) 104 Calcium (8.0 - 10.5 mg/dl) 9.0 Total Bilirubin (0.0 - 1.0 mg/dl) 0.1 AST (15.0 - 37.0 Units/L) 18 ALT (12.0 - 78.0 Units/L) 48 Total Alk Phosphatase (50.0 - 136.0 Units/L) 100 Total Creatine Kinase (39 - 308 Units/L) 145 Rapid Troponin I (0.00 - 0.08) 0.00 Troponin I (0.00 - 0.06 NG/ML) <0.02 Total Protein (6.0 - 8.1 GM/DL) 6.9 Albumin (3.2 - 4.7 gm/dL) 3.8 Coagulation INR (0.89 - 1.14) 0.9 PTT ([place]) (25.86 - 36.07 SECONDS) 31.20 PT Patient/Control Mix (9.9 - 12.8 SECONDS) 11.1 Hematology WBC (4.5 - 11.0 K/mm3) 9.9 RBC (4.40 - 5.90 M/mm3) 4.58 Hgb (13.0 - 17.0 gm/dL) 13.8 Hct (36.0 - 48.0 %) 41.0 MCV (80.0 - 94.0 UM3) 89.5 MCH (25.5 - 32.5 UUG) 30.1 MCHC (29.0 - 35.5 gm/dL) 33.7 RDW (11.5 - 15.0 %) 11.9 Plt Count (150 - 400 K/mm3) 298 MPV (7.4 - 10.4 fl) 9.8 Neut % (Auto) (49.0 - 76.0 %) 58.6 Lymph % (Auto) (23.0 - 38.0 %) 31.4 [place] % (Auto) (1.0 - 10.0 %) 6.3 Eos % (Auto) (1.0 - 5.0 %) 3.0 Baso % (Auto) (0.0 - 1.0 %) 0.5 Neut # (Auto) (2.4 - 6.3 K/mm3) 5.8 Lymph # (Auto) (1.2 - 4.0 K/mm3) 3.1 [place] # (Auto) (0.0 - 0.6 K/mm3) 0.6 Eos # (Auto) (0.0 - 0.7 K/MM3) 0.3 Baso # (Auto) (0.0 - 0.2 K/mm3) 0.1 Immature Gran % (0.0 - 0.4 %) 0.2 Immature Gran # (0.00 - 0.07 x10 3/uL) 0.02 Recent Impressions:RADIOLOGY - XR CHEST 1 V 03/020 Report Impression - Status: SIGNED Entered: 03/03/2019 0007 IMPRESSION:No radiographic evidence of acute cardiopulmonary process.Impression By: [email or web address] - Levon Thomas M.D. Lab Imaging StatementLaboratory radiographic studies reviewed and considered in the medical decision-making. Point of Care TestingPulse Oximetry Pulse Ox % 100 On: Room airRhythm Strip Interpretation Time 2346 Rate 79 Rhythm Strip Interpretation Normal sinus rhythm Re-Evaluation MDM Free Text MDM NotesFree Text MDM [id number] Discussed all results with Dr Polk, ok to [facility] Differential DiagnosisDifferential Diagnosis Acute coronary syndrome, Acute myocardial infarct, Anxiety disorder, Bronchitis, Chest pain, Chest pain, acute, Contusion Patient Discharge Departure Vital Signs/ConditionVital SignsFirst Documented: Result Date Time Pulse Ox 100 03/02 2319 B/P 134/67 03/02 2319 B/P Mean 89 03/02 2319 O2 Delivery Room air 03/02 2319 Temp 37.2 03/02 2319 Pulse 67 03/02 2319 Resp 16 03/02 2319 Last Documented: Result Date Time Pulse Ox 97 03/03 45 B/P 137/77 03/03 45 B/P Mean 97 03/03 45 O2 Delivery Room air 03/03 45 Temp 37.2 03/03 45 Pulse 70 03/03 45 Resp 24 03/03 45 All vital signs available at the time of this entry have been reviewed. Condition Stable Clinical ImpressionClinical ImpressionPrimary Impression: Chest pain, atypical Disposition DecisionDischarge )( Discharged to Home Yes )( Time 0015 )( Date 03/03/19 Discharge/Care PlanCounseled Regarding Diagnosis, Lab results, Medication changes, Prescriptions, Need for follow-up, Smoking cessation, When to return to EDPrescriptionsnaproxenPrescriptions Reviewed Risks, Benefits Discharge NoteI have spoken with the patient and/or caregivers. I have explained the patient'scondition, diagnoses and treatment plan based on the information available to meat this time. I have answered the patient's and/or caregiver's questions and addressed any concerns. The patient and/or caregivers have as good an understanding of the patient's diagnosis, condition and treatment plan as can beexpected at this point. The vital signs have been stable. The patient's condition is stable and appropriate for discharge from the emergency department. The patient will pursue further outpatient evaluation with the primary care physician or other designated or consulting physician as outlined in the discharge instructions. The patient and/or caregivers are agreeable to this planof care and follow-up instructions have been explained in detail. The patient and/or caregivers have received these instructions in written format and have expressed an understanding of the discharge instructions. The patient and/or caregivers are aware that any significant change in condition or worsening of symptoms should prompt an immediate return to this or the closest emergency department or a call to 911. Arron Polk 03/03/19 0020:HPI-Chest Pain Under 40 GeneralInitial Greet Date/Time 05/12/19 2325 Presentation)( Migration/Movement None Physical Exam Vital SignsVital Signs Interpretation Diagnostics Lab Results InterpretationResults Patient Discharge Departure Vital Signs/ConditionVital Signs Supervising Physician Note MidLv Saw Pt AloneI have reviewed the PA/BODY WORK AUTO TRIMMER's note and plan of care. I was available for consultation as needed at all times during the patient's visit in the emergency department. I agree with the clinical impression, plan and disposition. at 0157 at 0533RPT #:[id number] OF REPORTEDEmermercy hospital [facility] springs department [id number]:44:00E.[id number] ilable for patient [id number]:33:22 [facility]
--- NOTE | 2024-02-11 14:33 | RAD REPORT ---
EXAM DESCRIPTION: RAD - Shoulder Left 2 View - 02/11/2024 2:26 pm CLINICAL HISTORY: recurrent dislocation, back in;Pain COMPARISON: No comparisons FINDINGS: No fracture or dislocation seen.
--- NOTE | 2024-02-11 14:49 | ER ---
Nurse's Notes [facility] Name: Ray Malcolm Age: 28 yrs Sex: Male : 1995 Arrival Date: 02/11/2024 Time: 13:13 Bed IW1 Private MD: Diagnosis: Recurrent dislocation, left shoulder Presentation: 02/10 13:47 Chief complaint: Patient states: I was sleeping and left shoulder popped out of place, ko1 I popped it back in, now it hurts. Coronavirus screen: At this time, the client does not indicate any symptoms associated with coronavirus-19. Ebola Screen: No symptoms or risks identified at this time. Initial Sepsis Screen: Does the patient meet any 2 criteria? No. Patient's initial sepsis screen is negative. Does the patient have a suspected source of infection? No. Patient's initial sepsis screen is negative. Risk Assessment: Do you want to hurt yourself or someone else? Patient reports no desire to harm self or others. Onset of symptoms is unknown. 13:47 Method Of Arrival: Ambulatory ko1 13:47 Acuity: CJ 4 ko1 Triage Assessment: 13:51 General: Appears in no apparent distress. Behavior is calm, cooperative, appropriate ko1 for age. Pain: Complains of pain in anterior aspect of left shoulder. Musculoskeletal: Reports pain in anterior aspect of left shoulder. 13:55 Injury Description: none. ko1 Historical: - Allergies: 13:51 No Known Allergies; ko1 - Immunization history:: Adult Immunizations up to date. - Infectious Disease History:: Denies. - Social history:: Smoking status: Patient denies any tobacco usage or history of. - Family history:: not pertinent. - Hospitalizations: : No recent hospitalization is reported. Screenin:55 [facility] ED Fall Risk Assessment (Adult) History of falling in the last 3 months, ko1 including since admission No falls in past 3 months (0 pts). Abuse screen: Denies threats or abuse. Denies injuries from another. Nutritional screening: No deficits noted. Tuberculosis screening: No symptoms or risk factors identified. Vital Signs: 13:47 BP 133 / 90; Pulse 92; Resp 16; Temp 97; Pulse Ox 99% ; ko1 ED Course: 13:15 Patient arrived in ED. im 13:22 Froylan Burgos MD is Attending Physician. rn 13:51 Triage completed. ko1 13:51 Arm band placed on right wrist. Patient placed in waiting room, Patient notified of ko1 wait time. 13:55 Patient has correct armband on for positive identification. Provided Education on: na. ko1 13:55 No provider procedures requiring assistance completed. Patient did not have IV access ko1 during this emergency room visit. 14:25 XRAY Shoulder LEFT 2 view In Process Unspecified. EDMS Administered Medications: No medications were administered Medication: 15:17 VIS not applicable for this client. ko1 Outcome: 14:49 Discharge ordered by . rn 15:00 Discharged to home ambulatory, ko1 15:00 Condition: stable 15:00 Discharge instructions given to patient, Instructed on discharge instructions, follow up and referral plans. Demonstrated understanding of instructions, follow-up care, 15:18 Patient left the ED. ko1 Signatures: Dispatcher [employer] EDMS Froylan Burgos MD MD rn Oliver, Kathy, RN RN ko1 Lizzy Gamble
--- NOTE | 2024-02-11 14:49 | EDPHYS ---
Physician Documentation [facility] Name: Ray Malcolm Age: 28 yrs Sex: Male : 1995 Arrival Date: 02/11/2024 Time: 13:13 Bed IW1 Private MD: ED Physician Froylan Burgos HPI: 02/10 14:43 This 28 yrs old Male presents to ER via Ambulatory with complaints of Shoulder Injury, rn Shoulder Pain. 14:43 The patient or guardian complains of an injury, pain. left shoulder. Onset: The rn symptoms/episode began/occurred Overnight. 14:45 Severity of symptoms: At their worst the symptoms were moderate, in the emergency rn department the symptoms have improved. Patient reports that some time in the middle of the night thinks he dislocated his left shoulder, which has happened multiple times, feels like it went back in but still having a little bit of pain while working today. No new injuries.. Historical: - Allergies: 13:51 No Known Allergies; ko1 - Immunization history:: Adult Immunizations up to date. - Infectious Disease History:: Denies. - Social history:: Smoking status: Patient denies any tobacco usage or history of. - Family history:: not pertinent. - Hospitalizations: : No recent hospitalization is reported. ROS: 14:45 Constitutional: Negative for fever, chills, and weight loss, MS/Extremity: Positive for rn left shoulder dislocation and relocation Skin: Negative for injury, rash, and discoloration, Neuro: Negative for headache, weakness, numbness, tingling, and seizure, Exam: 14:45 Constitutional: This is a well developed, well nourished patient who is awake, alert, rn and in no acute distress. MS/ Extremity: Pulses equal, no cyanosis. Neurovascular intact. Full, normal range of motion. Equal circumference. Bilateral shoulder laxity noted Vital Signs: 13:47 BP 133 / 90; Pulse 92; Resp 16; Temp 97; Pulse Ox 99% ; ko1 MDM: 13:22 Patient medically screened. rn 14:45 Differential diagnosis: Anterior dislocation with fracture, Anterior dislocation rn without fracture, humeral head fracture, glenoid fracture, DJD, tendonitis, Recurrent shoulder dislocation. Data reviewed: vital signs, nurses notes, radiologic studies, plain films, and as a result, I will discharge patient. Counseling: I had a detailed discussion with the patient and/or guardian regarding the historical points, exam findings, and any diagnostic results supporting the discharge/admit diagnosis, radiology results, the need for outpatient follow up, to return to the emergency department if symptoms worsen or persist or if there are any questions or concerns that arise at home. Response to treatment: the patient's symptoms have mildly improved after treatment, and as a result, I will discharge patient. Special discussion: I discussed with the patient/guardian in detail that at this point there is no indication for admission to the hospital. It is understood, however, that if the symptoms persist or worsen the patient needs to return immediately for re-evaluation. ED course: No acute findings on x-ray of the left shoulder. Spoke with patient regarding her shoulder laxity or instability as a result of recurrent shoulder dislocations. Will follow-up as needed.. 02/10 13:42 Order name: XRAY Shoulder LEFT 2 view; Complete Time: 14:43 rn Administered Medications: No medications were administered Disposition Summary: 02/11/24 14:49 Discharge Ordered Notes: Location: Home rn Problem: new rn Symptoms: have improved rn Condition: Stable rn Diagnosis - Recurrent dislocation, left shoulder rn Followup: rn - With: Private Physician - When: As needed - Reason: Recheck today's complaints, Re-evaluation by your physician Discharge Instructions: - Discharge Summary Sheet rn - Shoulder Dislocation rn - Shoulder Instability rn Forms: - Medication Reconciliation Form rn - Thank You Letter rn - Antibiotic bag turner - Prescription Opioid Use rn - Patient Portal Instructions rn - Leadership Thank You Letter rn - Work release form ko1 Signatures: Dispatcher [employer] Froylan Villalpando MD MD rn Oliver, Kathy, RN RN ko1
[2024-02-11 15:43] VITALS: BP 133/90; TEMP 97; O2SAT 99
== END 2024-02-11 15:18 | disposition home or self-care (01) ==
LOC: ER 13:13
DX: M24.412 Recurrent dislocation, left shoulder (principal)
CPT/HCPCS: 99282

== ENCOUNTER 2024-04-17 14:29 | Emergency (ER) | payer BC ==
--- OUTSIDE RECORDS SUMMARY | 2024-04-17 14:46 | XMS REPORT | Continuity of Care Document ---
Author Name Unknown Address [address] [facility] [address] [id number] [facility] Address [address] [facility] 1 [phone] Care Team Providers Care Arch Pad Cementer Name Role Phone Hilda Max PA-C Attending Clinician [phone] Payers Payer Name Policy Type Policy Number Effective Date Expirati on Date Source Problems Condition Name Condition Details Condition Category Status Onset Date Resolution Date Last Treatment Date Treating Clinician Comments Source No known active problems No known active problems Disease [facility] Allergies, Adverse Reactions, Alerts Allergy Name Allergy Type Status Severity Reaction(s) Onset Date Inactive Date Treating Clinician Comments Source No Known Allergie s DA Active U 03-02 00:00: 00 [facility] Social History Social Habit Start Date Stop Date Quantity Comments Source Sex Assigned At [facility] Smoking Status Start Date Stop Date Source Unknown if ever smoked [facility] Medications Ordered Medication Name Filled Medication Name Start Date Stop Date Current Medication? Ordering Clinician Indication Dosage Frequency Signature (SIG) Comments Components Source hydrocortis one 2.5 % rectal cream 06-28 00:00: 00 07-13 04:59 :00 No [id number] Insert into rectum 2 (two) times daily for 14 days. [facility] sulfamethox azole-trime thoprim (BACTRIM DS) 800-160 mg per tablet 11-17 00:00: 00 Yes 1{tbl} Take 1 Tab by mouth every 12 (twelve) hours. [facility] albuterol (PROAIR HFA) 90 mcg/actuati on inhaler 11-17 00:00: 00 Yes 2{puff} Inhale 2 Puffs every 6 (six) hours as needed for Wheezing or Shortness of Breath. [facility] proMETHazin e (PHENERGAN) 25 mg tablet 11-17 00:00: 00 Yes 12.5mg Take 0.5 Tabs by mouth every 6 (six) hours as needed for Nausea and Vomiting (N/V). [facility] Vital Signs Vital Name Observation Time Observation Value Comments S [facility] Systolic blood pressure 2019-06-28 19:25:00 129 mm[Hg] [facility] Diastolic blood pressure 2019-06-28 19:25:00 71 mm[Hg] [facility] Heart rate 2019-06-28 19:25:00 74 /min [facility] Body temperature 2019-06-28 19:25:00 36.78 Bre [facility] Respiratory rate 2019-06-28 19:25:00 18 /min [facility] Body height 2019-06-28 19:25:00 170.2 cm [facility] Body weight 2019-06-28 19:25:00 90.719 kg [facility] BMI 2019-06-28 19:25:00 31.32 kg/m2 [facility] Oxygen saturation in Arterial blood by Pulse oximetry 2019-06-28 19:25:00 100 /min [facility] Procedures Procedure Date / Time Performed Performing Clinicia n Source NOTICE OF PRIVACY PRACTICES 2019-06-28 19:14:11 Doctor Unassigned, [place] [facility] CONSENT/REFUSAL FOR DIAGNOSIS AND TREATMENT 2019-06-28 19:13:52 Doctor Unassigned, [place] [facility] Encounters Start Date/Time End Date/Time Encounter Type Admission Type Attending Clinicians Care Facility Care Department Encounter ID Source 2019-06-28 14:27:25 2019-06-28 15:46:00 Emergency Hilda Max [facility] [id number] [facility] Results Test Description Test Time Test Comments Results Result Co mments Source - XR CHEST 1 V 2019-04-11 23:03:00 FAX: Addison Kim MD [phone] Martin: St: REG ------ Name: BJORN TESFAYEMiguel AngelAPRIL [facility] : 1995 Age/S: 23/M [address] [facility] [place] Unit #: [id number] Loc: [place], [place]: [place] [id number] Acct: [id number] Dis Date: Status: REG ER PHONE #: [phone] Exam Date: 04/11/2019 225 FAX #: [phone] Reason: chest pain EXAMS: CPT CODE: [id number] XR CHEST 1 V 54670 AFTER HOURS SERVICE ON: 04/11/2019 11:02 PM AP Portable Chest Location Code M12 HISTORY: chest pain FINDINGS: There are no infiltrates. There are no pleural effusions. There is no pneumothorax. Cardiac silhouette and mediastinum appear within normal limits. IMPRESSION: No active pulmonary findings. at 2303 Reported and signed by: Hany Arcos M.D. CC: Addison Kim MD Technologist: ELIGIO CARO Trnscrd Date/Time/By: 04/11/2019 (2303) : By: [email or web address] PAGE 1 Signed Report FAX: Addison Kim MD [phone] Martin: St: REG ------ Name: BJORN TESFAYE [facility] : 1995 Age/S: 23/M [address] [facility] Unit #: [id number] [place]: [place], [place]: [place] [id number] Acct: [id number] Dis Date: Status: REG ER PHONE #: [phone] Exam Date: 04/11/2019 2252 FAX #: [phone] Reason: chest pain EXAMS: CPT CODE: [id number] XR CHEST 1 V 41865 (Continued) Orig Print D/T: S: 04/11/2019 (4267) PAGE 2 Signed Report THYROID STIMULATING [id number] 22:52:00* Test Item Value Reference Range Interpretation Comme [facility] THYROID STIMULATING HORMONE (test code = TSH) 2.13 IU/ML 0.47-5.01 N Result is in International Units/milliliter [id number] 22:52:00* Test Item Value Reference Range Interpretation Comme nts TROPONIN-I (test code = TROPI) <0.02 NG/ML 0.00-0.06 N REFERENCE RANGE TROPONIN I HEALTHY INDIVIDUALS: <0.06 ng/mL R/O ISCHEMIA: 0.07 - 0.60 ng/mL CUT-OFF RANGE FOR AMI: 0.60 - 1.5 ng/mL PROTHROMBIN [id number] 22:50:00* Test Item Value Reference Range Interpretation [...] ANTIPHOSPHOLIPID ANTIBODIES 2.5 - 3.5 SPECIMEN 4+ HEMOLYSISD-DIMER/[id number] 22:50:00* Test Item Value Reference Range Interpretation [...] the test result. SPECIMEN 4+ HEMOLYSISCBC W/AUTO [id number] 22:30:00* Test Item Value Reference Range Interpretation [...] K/mm3 0.0-0.2 N - XR CHEST 1 [id number] 00:04:00FAX: Tracey Allen KEY ACCOUNT DIRECTOR [phone] Martin: ANNE-MARIE St: REG Name: BJORN TESFAYE [facility] : 1995 Age/S: 23/M [address] [facility] Unit #: [id number] Loc: [place], [place] Phys: Tracey Allen KEY ACCOUNT DIRECTOR [id number] Acct: [id number] Dis Date: Status: REG ER PHONE #: [phone] Exam Date: 019 2345 FAX #: [phone] Reason: CHEST PAIN EXAMS: CPT CODE: [id number] XR CHEST 1 V 56847 EXAM: - XR CHEST 1 V HISTORY: [...] M.D. CC: Korina MARTINEZ Technologist: NIKOLAI HARRISON [facility] Date/Time/By: 03/03/2019 (0004) : By: [email or web address] PAGE 1 Signed Report FAX: Dom Allenannette MARTINEZ [phone] Martin: St: REG Name: BJORN TESFAYE [facility] : 1995 Age/S: 23/M [address] [facility] Unit #: [id number] Loc: [place], [place] Phys: Dom Allenna KEY ACCOUNT DIRECTOR [id number] Acct: [id number] Dis Date: Status: REG ER PHONE #: [phone] Date: 03/02/2019 2345 FAX #: [phone] Reason: CHEST PAIN EXAMS: CPT CODE: [id number] XR CHEST 1 V 49306 (Continued) Orig Print D/T: S: 03/03/2019 (0007) PAGE 2 Signed ReportCOMPREHENSIVE METABOLIC [id number] 00:02:00* Test Item Value Reference Range Interpretation [...] ALKP) 100 Units/L 50.0-136.0 N CARDIAC ENZYMES [id number] 00:02:00* Test Item Value Reference Range Interpretation Comme nts CREATINE KINASE (CK) (test code = CK) 145 Units/L 39-308 N TROPONIN-I (test code = TROPI) <0.02 NG/ML 0.00-0.06 N REFERENCE RANGE TROPONIN I HEALTHY INDIVIDUALS: <0.06 ng/mL R/O ISCHEMIA: 0.07 - 0.60 ng/mL CUT-OFF RANGE FOR AMI: 0.60 - 1.5 ng/mL PROTHROMBIN [id number] 23:55:00* Test Item Value Reference Range Interpretation Comme [facility] PROTHROMBIN TIME PATIENT (test code = PTP) 11.1 SECONDS 9.9-12.8 N INTERNATIONAL NORMAL RATIO (test code = INR) 0.9 0.89-1.14 N THE INR IS TO BE USED ONLY FOR MONITORING ORAL ANTICOAGULANTTHERAPY. THE FOLLOWING ARE SUGGESTED RANGES FROM THEBANNERAN COLLEGE OF CHEST PHYSICIANS:INDICATION INR VALUEPROPHYLAXIS OF [...] ANTIPHOSPHOLIPID ANTIBODIES 2.5 - 3.5 THROMBOPLASTIN TIME [id number] 23:55:00* Test Item Value Reference Range Interpretation [facility] THROMBOPLASTIN TIME PARTIAL (test code = PTT) 31.20 SECONDS 25.86-36.07 N [facility] Therapeutic Range - APTT of 55.8-85.4 secondscorrelates with plasma heparin concentration of 0.2-0.4 u/mL New range effective - 12/17/2016 TROPONIN I [id number] 23:53:00* Test Item Value Reference Range Interpretation [facility] TROPONIN I RAPID (test code = TROPIRAP) [...] of temporal changes in troponin levelscharacteristic of [place]. COMPREHENSIVE METABOLIC [id number] 23:53:00* Test Item Value Reference Range Interpretation [...] code = ALKP) Units/L 50.0-136.0 CARDIAC ENZYMES [id number] 23:53:00* Test Item Value Reference Range Interpretation Comme nts CREATINE KINASE (CK) (test code = CK) Units/L 39-308 TROPONIN-I (test code = TROPI) NG/ML 0.00-0.06 CBC W/AUTO [id number] 23:50:00* Test Item Value Reference Range Interpretation [...] Notes Date/Time Note Provider Source 2019-04-11 22:11:00 [id number] KBy0cv+kZqC+4OppQdhp8zTKa6WaF WN7hJXUoowkYmgN/GjaWLrUPs3r48IdF1W7338-93-27Z85:1 1:00 [facility] ([facility])EMERGENCY PROVIDER REPORTREPORT#:[id number] REPORT STATUS: SignedDATE:04/11/19 TIME: 2210 PATIENT: BJORN TESFAYE UNIT #: [id number]#: [id number] ROOM/BED:AGE: 23 SEX: M PCP PHYS: No [...] (Auto) (23.0 - 38.0 %) 7.4 L [place] % (Auto) (1.0 - 10.0 %) 4.7 Eos % (Auto) (1.0 - 5.0 %) 0.8 L Baso % (Auto) (0.0 - 1.0 %) 0.3 Neut # (Auto) (2.4 - 6.3 K/mm3) 10.8 H Lymph # (Auto) (1.2 - 4.0 K/mm3) 0.9 L [place] # (Auto) (0.0 - 0.6 K/mm3) 0.6 Eos # (Auto) (0.0 - 0.7 K/MM3) 0.1 Baso # (Auto) (0.0 - 0.2 K/mm3) 0.0 Immature Gran % (0.0 - 0.4 %) 0.3 Immature Gran # (0.00 - 0.07 x10 3/uL) 0.04 Recent Impressions:RADIOLOGY - XR CHEST 1 V 04/11 2251 Report Impression - Status: SIGNED Entered: 04/11/2019 6989 IMPRESSION: No active pulmonary findings.Impression By: [email or web address] [...] cessation, When to return to ED Quality Cgutwdht73-Wrjg ECG for CP Performed documentedSmoking Cessation Screened, [...] Marie on 04/11/19 at 2325 at 0439RPT #:[id number] OF REPORTEDEmergency department xsvbka8997-70-69G17:11:00E.NJYH60424156-6520YHDel ilable for patient svzlKEXWUWWOKDCUMA7935-19-89F44:40:12 [facility] 2019-03-02 23:44:00 QNrqkonvtbh79375035s bchl5+64V/vPm4AyOmhGMzfpZRZ4J Jbppo5Jnvo+JEIYPrrd90Pcl9zbuo28Bte9920-41-53U27:4 4:00 [facility] PROVID[facility] REPORTREPORT#:[id number] REPORT STATUS: SignedDATE:03/02/19 TIME: 2343 PATIENT: BJORN TESFAYE UNIT #: [id number]#: [id number] ROOM/BED:AGE: 23 SEX: M PCP PHYS: No Primary or Family PhysicianSERVICE AUTHOR: Tracey Allen KEY ACCOUNT DIRECTOR * ALL edits or amendments must be [...] Coagulation INR (0.89 - 1.14) 0.9 PTT ([place]) (25.86 - 36.07 SECONDS) 31.20 PT Patient/Control [...] % (Auto) (23.0 - 38.0 %) 31.4 [place] % (Auto) (1.0 - 10.0 %) 6.3 Eos % (Auto) (1.0 - 5.0 %) 3.0 Baso % (Auto) (0.0 - 1.0 %) 0.5 Neut # (Auto) (2.4 - 6.3 K/mm3) 5.8 Lymph # (Auto) (1.2 - 4.0 K/mm3) 3.1 [place] # (Auto) (0.0 - 0.6 K/mm3) 0.6 [...] MDM Free Text MDM NotesFree Text MDM Gkxmu9020- Discussed all results with oanh Duque to [...] MidLv Saw Pt AloneI have reviewed the PA/KEY ACCOUNT DIRECTOR's note and plan of care. I was available for consultation as needed at all times during the patient's visit in the emergency department. I agree with the clinical impression, plan and disposition. at 0157RPT #:[id number] OF REPORTEDEmergen department ebpvev3025-10-06C97:44:00E.EJGU31865814-4383JLOmk ilable for patient uzfaBZQTLJHGFLHYYE2269-20-01M66:58:01 [facility] 2019-03-02 23:44:00 [id number]+ jkJXNQSFRT+SPZiCPX6k1QuHr4UjH QEPfGOX2jA6EEuzoQlSgoFm038Mk4fUjYl4980-07-74K17:4 4:00 [facility] ([facility])EMERGENCY PROVIDER REPORTREPORT#:[id number] REPORT STATUS: SignedDATE:03/02/19 TIME: 2343 PATIENT: BJORN TESFAYE UNIT #: [id number]#: [id number] ROOM/BED:AGE: 23 SEX: M PCP PHYS: No Primary or Family PhysicianSERVICE AUTHOR: Tracey Allen KEY ACCOUNT DIRECTOR * ALL edits or amendments must be [...] 03/02/192336:[Embedded Image Not Available]Laboratory Tests: 03/02 03/02 9259 2337 Chemistry Sodium (134.0 - 147.0 mmol/l) [...] Coagulation INR (0.89 - 1.14) 0.9 PTT ([place]) (25.86 - 36.07 SECONDS) 31.20 PT Patient/Control [...] % (Auto) (23.0 - 38.0 %) 31.4 [place] % (Auto) (1.0 - 10.0 %) 6.3 Eos % (Auto) (1.0 - 5.0 %) 3.0 Baso % (Auto) (0.0 - 1.0 %) 0.5 Neut # (Auto) (2.4 - 6.3 K/mm3) 5.8 Lymph # (Auto) (1.2 - 4.0 K/mm3) 3.1 [place] # (Auto) (0.0 - 0.6 K/mm3) 0.6 [...] MDM Free Text MDM NotesFree Text MDM Nlgzg6851- Discussed all results with Dr Polk, ok to [facility] Differential DiagnosisDifferential Diagnosis Acute coronary syndrome, Acute [...] MidLv Saw Pt AloneI have reviewed the PA/KEY ACCOUNT DIRECTOR's note and plan of care. I was available for consultation as needed at all times during the patient's visit in the emergency department. I agree with the clinical impression, plan and disposition. at 0157 at 0533RPT #:[id number] OF REPORTEDEmerrivendell behavioral health services department gdwsvh2662-38-81I66:44:00E.SHVS37308071-7146QPNlw ilable for patient gtubJJKBSBJUBTOGXG2731-34-76O40:33:22 [facility]
--- NOTE | 2024-04-17 14:52 | ER ---
Nurse's Notes [facility] Name: Ray Malcolm Age: 28 yrs Sex: Male : 1995 Arrival Date: 04/17/2024 Time: 14:29 Bed IW4 Private MD: Diagnosis: Encounter for issue of other medical certificate-work note Presentation: 04/17 14:49 Chief complaint: Patient states: Didn't want to go to work yesterday or today. Needs ll1 work release. Coronavirus screen: Client denies travel out of the [place] in the last 14 days. At this time, the client does not indicate any symptoms associated with coronavirus-19. Ebola Screen: Patient denies travel to an Ebola-affected area in the 21 days before illness onset. Initial Sepsis Screen: Does the patient meet any 2 criteria? No. Patient's initial sepsis screen is negative. Does the patient have a suspected source of infection? No. Patient's initial sepsis screen is negative. Risk Assessment: Do you want to hurt yourself or someone else? Patient reports no desire to harm self or others. Onset of symptoms was April 17, 2024. 14:49 Method Of Arrival: Ambulatory ll1 14:49 Acuity: CJ 4 ll1 Triage Assessment: 14:49 General: Appears in no apparent distress. Behavior is calm, cooperative, appropriate ll1 for age. General: needs work note. Pain: Denies pain. Historical: - Allergies: 14:49 No Known Allergies; ll1 - PMHx: 14:49 None; ll1 - PSHx: 14:49 None; ll1 - Immunization history:: Adult Immunizations up to date. - Infectious Disease History:: Denies. - Social history:: Smoking status: Patient denies any tobacco usage or history of. Screenin:50 [facility] ED Fall Risk Assessment (Adult) History of falling in the last 3 months, ll1 including since admission No falls in past 3 months (0 pts) Confusion or Disorientation No (0 pts) Intoxicated or Sedated No (0 pts) Impaired Gait No (0 pts) Mobility Assist Device Used No (0 pt) Altered Elimination No (0 pt) Score/Fall Risk Level 0 - 2 = Low Risk Maintained a safe environment, Hourly rounding (assess needs \T\ fall precautionary measures) done. Abuse screen: Denies threats or abuse. Nutritional screening: No deficits noted. Tuberculosis screening: No symptoms or risk factors identified. Assessment: 14:53 Reassessment: No changes from previously documented assessment. Patient and/or family ll1 updated on plan of care and expected duration. Pain level reassessed. Patient is alert, oriented x 3, equal unlabored respirations, skin warm/dry/pink. Vital Signs: 14:49 BP 149 / 84; Pulse 86; Resp 16; Temp 97.6; Pulse Ox 99% ; Pain 0/10; ll1 14:49 Pain Scale: Adult ll1 ED Course: 14:34 Patient arrived in ED. mg5 14:35 Shelbi Mcgowan FNP-C is [facility] kb 14:35 Valdez Yu MD is Attending Physician. kb 14:37 Arm band placed on. ll1 14:50 Triage completed. ll1 14:54 Patient has correct armband on for positive identification. Provided Education on: n/a. ll1 14:54 No provider procedures requiring assistance completed. Patient did not have IV access ll1 during this emergency room visit. Administered Medications: No medications were administered Medication: 14:54 VIS not applicable for this client. ll1 Outcome: 14:51 Discharge ordered by . kb 14:54 Patient left the ED. ll1 14:54 Discharged to home ambulatory, ll1 14:54 Condition: stable 14:54 Discharge instructions given to patient, Instructed on discharge instructions, follow up and referral plans. Demonstrated understanding of instructions, follow-up care, Signatures: Shelbi Mcgowan FNP-C FNP-Ckb Lewis, Lynsay, RN RN ll1 Reema Miranda mg5
--- NOTE | 2024-04-17 14:52 | EDPHYS ---
Physician Documentation [facility] Name: Ray Malcolm Age: 28 yrs Sex: Male : 1995 Arrival Date: 04/17/2024 Time: 14:29 Bed IW4 Private MD: ED Physician Valdez Yu HPI: 04/17 14:52 This 28 yrs old Male presents to ER via Ambulatory with complaints of DRs Note. kb 14:52 Patient is a 28-year-old male who presents for a note to go back to work tomorrow. kb States he called in yesterday because he woke up late and today he did not go in because it was too hot outside. States his workplace told him to bring a doctor's note to return to work. Patient has no medical complaints.. Historical: - Allergies: 14:49 No Known Allergies; ll1 - PMHx: 14:49 None; ll1 - PSHx: 14:49 None; ll1 - Immunization history:: Adult Immunizations up to date. - Infectious Disease History:: Denies. - Social history:: Smoking status: Patient denies any tobacco usage or history of. ROS: 14:52 Constitutional: As per HPI kb Exam: 14:52 Constitutional: This is a well developed, well nourished patient who is awake, alert, kb and in no acute distress. Head/Face: Normocephalic, atraumatic. ENT: Moist Mucous membranes Cardiovascular: Regular rate Respiratory: Respirations even and unlabored. No increased work of breathing. Talking in full sentences Abdomen/GI: Soft, non-tender. No distention Skin: Warm, dry with normal turgor. Normal color. MS/ Extremity: Pulses equal, no cyanosis. Neurovascular intact. Full, normal range of motion. Neuro: Awake and alert, GCS 15, oriented to person, place, time, and situation. Moves all extremities. Normal gait. Vital Signs: 14:49 BP 149 / 84; Pulse 86; Resp 16; Temp 97.6; Pulse Ox 99% ; Pain 0/10; ll1 14:49 Pain Scale: Adult ll1 MDM: 14:39 Patient medically screened. kb 14:52 Data reviewed: vital signs, nurses notes. Counseling: I had a detailed discussion with kb the patient and/or guardian regarding the historical points, exam findings, and any diagnostic results supporting the discharge/admit diagnosis, the need for outpatient follow up, a family practitioner, to return to the emergency department if symptoms worsen or persist or if there are any questions or concerns that arise at home. Administered Medications: No medications were administered Disposition: 15:16 Co-signature as Attending Physician, Valdez Yu MD I reviewed the patient's care rt provided by the Advanced Practice Provider and agree with the diagnosis and treatment plan. Disposition Summary: 04/17/24 14:51 Discharge Ordered Notes: Location: Home kb Condition: Stable kb Diagnosis - Encounter for issue of other medical certificate - work note kb Followup: kb - With: Emergency Department - When: As needed - Reason: Worsening of condition Followup: kb - With: Private Physician - When: 2 - 3 days - Reason: Recheck today's complaints, Continuance of care, Re-evaluation by your physician Discharge Instructions: - Discharge Summary Sheet kb Forms: - Work release form kb - Medication Reconciliation Form kb - Antibiotic Education kb - Prescription Opioid Use kb - Patient Portal Instructions kb - Leadership Thank You Letter kb Signatures: Shelbi Mcgowan, LEXX-C LEXX-Mary Jane Avila, RN RN ll1 Valdez Yu MD MD rt
[2024-04-17 15:12] VITALS: BP 149/84; TEMP 97.6; O2SAT 99
== END 2024-04-17 14:54 | disposition home or self-care (01) ==
LOC: ER 14:29
DX: Z02.79 Encounter for issue of other medical certificate (principal)
CPT/HCPCS: 99282

== ENCOUNTER 2024-06-09 21:07 | Emergency (ER) | payer BC ==
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
--- NOTE | 2024-06-09 21:25 | ER ---
Nurse's Notes [facility] Name: Ray Malcolm Age: 28 yrs Sex: Male : 1995 Arrival Date: 06/09/2024 Time: 21:07 Bed 19 Private MD: Diagnosis: Local infection of the skin and subcutaneous tissue, unspecified Presentation: 06/09 21:20 Chief complaint: Patient states: redness and tenderness to top of R foot after visiting the beach Sunday. Denies fever. Coronavirus screen: Client denies travel out of the [place] in the last 14 days. Ebola Screen: Patient denies exposure to infectious person. Patient denies travel to an Ebola-affected area in the 21 days before illness onset. Initial Sepsis Screen: Does the patient meet any 2 criteria? No. Patient's initial sepsis screen is negative. Does the patient have a suspected source of infection? No. Patient's initial sepsis screen is negative. Risk Assessment: Do you want to hurt yourself or someone else? Patient reports no desire to harm self or others. Onset of symptoms was June 06, 2024. 21:20 Method Of Arrival: Ambulatory ss 21:20 Acuity: CJ 4 ss Historical: - Allergies: 21:21 No Known Allergies; ss - Home Meds: 21:21 None [Active]; ss - PMHx: 21:21 None; ss - PSHx: 21:21 None; ss - Immunization history:: Client reports receiving the 2nd dose of the Covid vaccine. - Infectious Disease History:: Denies. - Social history:: Smoking status: Patient reports the use of cigarette tobacco products, smokes one-half pack cigarettes per day, Patient reports use of chewing tobacco. Reported history of juuling and/or vaping. Screenin:25 [facility] ED Fall Risk Assessment (Adult) History of falling in the last 3 months, pc2 including since admission No falls in past 3 months (0 pts) Confusion or Disorientation No (0 pts) Intoxicated or Sedated No (0 pts) Impaired Gait No (0 pts) Mobility Assist Device Used No (0 pt) Altered Elimination No (0 pt) Score/Fall Risk Level 0 - 2 = Low Risk Oriented to surroundings, Maintained a safe environment, Hourly rounding (assess needs \T\ fall precautionary measures) done. Abuse screen: Denies threats or abuse. Denies injuries from another. Nutritional screening: No deficits noted. Tuberculosis screening: No symptoms or risk factors identified. Assessment: 21:24 General: Appears in no apparent distress. comfortable, Behavior is calm, cooperative, pc2 appropriate for age. Pain: Denies pain. Neuro: No deficits noted. Pimentel Agitation-Sedation Scale (RASS): 0 - Alert and Calm Level of Consciousness is awake, alert, obeys commands, Oriented to person, place, time, situation. Cardiovascular: Capillary refill < 3 seconds Patient's skin is warm and dry. Respiratory: Airway is patent Respiratory effort is even, unlabored, Respiratory pattern is regular, symmetrical. GI: No signs and/or symptoms were reported involving the gastrointestinal system. : No signs and/or symptoms were reported regarding the genitourinary system. EENT: No signs and/or symptoms were reported regarding the EENT system. Derm: Skin is healthy with good turgor, Skin is dry, Skin is pink, warm \T\ dry. Rash noted that is red, on right foot. Musculoskeletal: No signs and/or symptoms reported regarding the musculoskeletal system. Circulation, motion, and sensation intact. Range of motion: intact in all extremities. Vital Signs: 21:20 BP 112 / 92; Pulse 86; Resp 16; Temp 98.4(TE); Pulse Ox 98% on R/A; Weight 97.52 kg; ss Height 5 ft. 6 in. ; Pain 0/10; 21:20 Body Mass Index 34.70 (97.52 kg, 167.64 cm) ss 21:20 Pain Scale: Adult ss ED Course: 21:09 Patient arrived in ED. gm2 21:10 Shelbi Mcgowan FNP-C is PHCP. kb 21:10 Valdez Yu MD is Attending Physician. kb 21:21 Triage completed. ss 21:21 Arm band placed on right wrist. ss 21:22 Elvira Mendez, RN is Primary Nurse. pc2 21:26 Patient has correct armband on for positive identification. Bed in low position. Call pc2 light in reach. Side rails up X 1. Provided Education on: POC and time frame. 21:26 No provider procedures requiring assistance completed. pc2 21:27 Patient did not have IV access during this emergency room visit. pc2 Administered Medications: 21:32 Drug: Doxycycline PO 100 mg PO once Route: PO; pc2 21:32 Follow up: Response: No adverse reaction; Medication administered at discharge. pc2 Medication: 21:27 VIS not applicable for this client. pc2 Outcome: 21:24 Discharge ordered by . jasiel 21:26 Discharged to home ambulatory, pc2 21:26 Condition: stable 21:26 Discharge instructions given to patient, Instructed on discharge instructions, follow up and referral plans. medication usage, Demonstrated understanding of instructions, follow-up care, medications, Prescriptions given X 1, 21:33 Patient left the ED. pc2 Signatures: Shelbi Mcgowan, RIVETER HAND-C RIVETER HAND-Jeane Rondon, RN RN ss Virginia Cooper gm2 Elvira Mendez, RN RN pc2
[2024-06-09] MEDS ORDERED: DOXYCYCLINE 100 MG CAP PO ONE (21:28)
[2024-06-09 21:55] VITALS: BP 112/92; TEMP 98.4; O2SAT 98
--- OUTSIDE RECORDS SUMMARY | 2024-06-10 14:24 | XMS REPORT | Continuity of Care Document ---
Author Name Unknown Address [address] [place] [address] [facility] Address [address] [place] [address] Care Team Providers Care Envelope Machine Adjuster Name Role Phone Hilda Max PA-C Attending Clinician [phone] Payers Payer Name Policy Type Policy Number Effective Date Expirati on Date Source Problems Condition Name Condition Details Condition Category Status Onset Date Resolution Date Last Treatment Date Treating Clinician Comments Source No known active problems No known active problems Disease [facility] Allergies, Adverse Reactions, Alerts Allergy Name Allergy Type Status Severity Reaction(s) Onset Date Inactive Date Treating Clinician Comments Source No Known Allergie s DA Active U 03-02 00:00: 00 [facility] Social History Social Habit Start Date Stop Date Quantity Comments Source Sex Assigned At [facility] Smoking Status Start Date Stop Date Source Unknown if ever smoked [facility] Medications Ordered Medication Name Filled Medication Name Start Date Stop Date Current Medication? Ordering Clinician Indication Dosage Frequency Signature (SIG) Comments Components Source hydrocortis one 2.5 % rectal cream 06-28 00:00: 00 07-13 04:59 :00 No [id number] Insert into rectum 2 (two) times daily for 14 days. [facility] sulfamethox azole-trime thoprim (BACTRIM DS) 800-160 mg per tablet 11-17 00:00: 00 Yes 1{tbl} Take 1 Tab by mouth every 12 (twelve) hours. [facility] albuterol (PROAIR HFA) 90 mcg/actuati on inhaler 11-17 00:00: 00 Yes 2{puff} Inhale 2 Puffs every 6 (six) hours as needed for Wheezing or Shortness of Breath. [facility] proMETHazin e (PHENERGAN) 25 mg tablet 11-17 00:00: 00 Yes 12.5mg Take 0.5 Tabs by mouth every 6 (six) hours as needed for Nausea and Vomiting (N/V). [facility] Vital Signs Vital Name Observation Time Observation Value Comments S [facility] Systolic blood pressure 2019-06-28 19:25:00 129 mm[Hg] [facility] Diastolic blood pressure 2019-06-28 19:25:00 71 mm[Hg] [facility] Heart rate 2019-06-28 19:25:00 74 /min [facility] Body temperature 2019-06-28 19:25:00 36.78 Bre [facility] Respiratory rate 2019-06-28 19:25:00 18 /min [facility] Body height 2019-06-28 19:25:00 170.2 cm [facility] Body weight 2019-06-28 19:25:00 90.719 kg [facility] BMI 2019-06-28 19:25:00 31.32 kg/m2 [facility] Oxygen saturation in Arterial blood by Pulse oximetry 2019-06-28 19:25:00 100 /min [facility] Procedures Procedure Date / Time Performed Performing Clinicia n Source NOTICE OF PRIVACY PRACTICES 2019-06-28 19:14:11 Doctor Unassigned, [place] [facility] CONSENT/REFUSAL FOR DIAGNOSIS AND TREATMENT 2019-06-28 19:13:52 Doctor Unassigned, [place] [facility] Encounters Start Date/Time End Date/Time Encounter Type Admission Type Attending Clinicians Care Facility Care Department Encounter ID Source 2019-06-28 14:27:25 2019-06-28 15:46:00 Emergency Hilda Max [facility] [id number] [facility] Results Test Description Test Time Test Comments Results Result Co mments Source - XR CHEST 1 V 2019-04-11 23:03:00 FAX: Addison Kim MD [phone] [place]: St: REG ------ Name: BJORN TESFAYEMiguel AngelAPRIL [facility] : 1995 Age/S: 23/M [address] [facility] Unit #: [id number] Loc: [place], [place]: [place] [id number] Acct: [id number] Dis Date: Status: REG ER PHONE #: [phone] Exam Date: 04/11/2019 225 FAX #: [phone] Reason: chest pain EXAMS: CPT CODE: [id number] XR CHEST 1 V 15983 AFTER HOURS SERVICE ON: 04/11/2019 11:02 PM [...] 1 Signed Report FAX: Addison Kim MD [phone] [place]: St: REG ------ Name: BJORN TESFAYE [facility] : 1995 Age/S: 23/M [address] Unit #: [id number] [place]: [place]: [place] [id number] Acct: [id number] Dis Date: Status: REG ER PHONE #: [phone] Exam Date: 04/11/2019 2253 FAX #: [phone] Reason: chest pain EXAMS: CPT CODE: [id number] XR CHEST 1 V 36484 (Continued) Orig Print D/T: S: 04/11/2019 (6307) PAGE 2 Signed Report THYROID STIMULATING [id number] 22:52:00* Test Item Value Reference Range Interpretation Comme [facility] THYROID STIMULATING HORMONE (test code = TSH) 2.13 IU/ML 0.47-5.01 N Result is in International Units/milliliter [id number] 22:52:00* Test Item Value Reference Range Interpretation Comme nts TROPONIN-I (test code = TROPI) <0.02 NG/ML 0.00-0.06 N REFERENCE RANGE TROPONIN I HEALTHY INDIVIDUALS: <0.06 ng/mL R/O ISCHEMIA: 0.07 - 0.60 ng/mL CUT-OFF RANGE FOR AMI: 0.60 - 1.5 ng/mL PROTHROMBIN [id number] 22:50:00* Test Item Value Reference Range Interpretation [...] ANTIPHOSPHOLIPID ANTIBODIES 2.5 - 3.5 SPECIMEN 4+ HEMOLYSISD-[id number] 22:50:00* Test Item Value Reference Range Interpretation [...] the test result. SPECIMEN 4+ HEMOLYSISCBC W/AUTO [id number] 22:30:00* Test Item Value Reference Range Interpretation [...] K/mm3 0.0-0.2 N - XR CHEST 1 [id number] 00:04:00FAX: Tracey Allen DEAN [phone] [place]: ANNE-MARIE St: REG Name: BJORN TESFAYE [facility] : 1995 Age/S: 23/M [address] [facility] Unit #: [id number] Loc: [place], [place] Phys: Tracey Allen DEAN [address] Acct: [id number] Dis Date: Status: REG ER PHONE #: [phone] Exam Date: 019 2345 FAX #: [phone] Reason: CHEST PAIN EXAMS: CPT CODE: [id number] XR CHEST 1 V 83756 EXAM: - XR CHEST 1 V HISTORY: [...] M.D. CC: Korina MARTINEZ Technologist: NIKOLAI HARRISON [facility] Date/Time/By: 03/03/2019 (0004) : By: [email or web address] PAGE 1 Signed Report FAX: Dom Allenannette MARTINEZ [phone] [place]: St: REG Name: BJORN TESFAYE [facility] : 1995 Age/S: 23/M [address] [facility] Unit #: [id number] Loc: [place], [place] Phys: Dom Allenna DEAN [address] Acct: [id number] Dis Date: Status: REG ER PHONE #: [phone] Date: 03/02/2019 2345 FAX #: [phone] Reason: CHEST PAIN EXAMS: CPT CODE: [id number] XR CHEST 1 V 62095 (Continued) Orig Print D/T: S: 03/03/2019 (0007) PAGE 2 Signed ReportCOMPREHENSIVE METABOLIC [id number] 00:02:00* Test Item Value Reference Range Interpretation [...] ALKP) 100 Units/L 50.0-136.0 N CARDIAC ENZYMES [id number] 00:02:00* Test Item Value Reference Range Interpretation Comme nts CREATINE KINASE (CK) (test code = CK) 145 Units/L 39-308 N TROPONIN-I (test code = TROPI) <0.02 NG/ML 0.00-0.06 N REFERENCE RANGE TROPONIN I HEALTHY INDIVIDUALS: <0.06 ng/mL R/O ISCHEMIA: 0.07 - 0.60 ng/mL CUT-OFF RANGE FOR AMI: 0.60 - 1.5 ng/mL PROTHROMBIN [id number] 23:55:00* Test Item Value Reference Range Interpretation Comme [facility] PROTHROMBIN TIME PATIENT (test code = PTP) 11.1 SECONDS 9.9-12.8 N INTERNATIONAL NORMAL RATIO (test code = INR) 0.9 0.89-1.14 N THE INR IS TO BE USED ONLY FOR MONITORING ORAL ANTICOAGULANTTHERAPY. THE FOLLOWING ARE SUGGESTED RANGES FROM THEDIGN[facility] COLLEGE OF CHEST PHYSICIANS:INDICATION INR VALUEPROPHYLAXIS OF [...] ANTIPHOSPHOLIPID ANTIBODIES 2.5 - 3.5 THROMBOPLASTIN TIME [id number] 23:55:00* Test Item Value Reference Range Interpretation [facility] PARTIAL (test code = PTT) 31.20 SECONDS 25.86-36.07 N [facility] Therapeutic Range - APTT of 55.8-85.4 secondscorrelates with plasma heparin concentration of 0.2-0.4 u/mL New range effective - 12/17/2016 TROPONIN I [id number] 23:53:00* Test Item Value Reference Range Interpretation [...] of temporal changes in troponin levelscharacteristic of [place]. COMPREHENSIVE METABOLIC [id number] 23:53:00* Test Item Value Reference Range Interpretation [...] code = ALKP) Units/L 50.0-136.0 CARDIAC ENZYMES [id number] 23:53:00* Test Item Value Reference Range Interpretation Comme nts CREATINE KINASE (CK) (test code = CK) Units/L 39-308 TROPONIN-I (test code = TROPI) NG/ML 0.00-0.06 CBC W/AUTO [id number] 23:50:00* Test Item Value Reference Range Interpretation [...] Notes Date/Time Note Provider Source 2019-04-11 22:11:00 [facility] ([facility]) EMERGENCY PROVIDER REPORT REPORT#:[id number] REPORT STATUS: Signed DATE:04/11/19 TIME: 2210 PATIENT: BJORN TESFAYE ANABELLAPRIL UNIT #: [id number] ROOM/BED: AGE: 23 SEX: M PCP PHYS: No Primary or Family Physician SERVICE AUTHOR: Addison Kim MD * ALL edits or amendments must be made on the electronic/computer document * HPI-Chest Pain Under 40 General Confirmed Patient Yes Initial Greet Date/Time 04/11/192152 Presentation Chief Complaint Chest pain Hx Obtained From Patient Sudden in Onset? Yes Onset Occurred Hours ago (3) Symptom Duration Since onset Progression since Onset Constant, Gradually improving Location Chest L Quality Sharp Radiation Arm L. )( Migration/Movement None Severity: Onset Moderate Severity: Current Mild Associated with Reports: Dizziness. Denies: Cough, productive, Fever, Nausea, Shortness of breath, Vomiting. Exacerbated by Nothing Relieved by Nothing Free Text HPI Notes Free Text HPI Notes 23 y/o male with no known PMHx presents to the ED c/o sharp L-sided CP radiating down L arm onset 3 hours ago. Pt [...] at 2325 Risk-Chest Pain Under 40 Risk Stratification )( Coronary Artery Disease Risk factors reviewed, Smoking )( Pulmonary Embolism Risk factors reviewed )( AMI-Aspirin Aspirin Last 24 Hrs None )( HEART for MACE )( HEART for MACE [...] 04/11/19 at 2216 Review of Systems ROS Statements All systems rev neg except as marked. Focused Review of Systems Constitutional Reports: Fever. Denies: Chills, Lethargy. Respiratory Denies: Cough, non-productive, Cough, productive, Shortness of breath. Cardiovascular Reports: Chest pain. Denies: Edema, Palpitations. GI Denies: Nausea, Vomiting. Musculoskeletal Reports: Extremity pain (L arm). Denies: Extremity swelling. Skin Denies: Diaphoresis, Rash, Swelling. Neurologic Reports: Dizziness. Denies: Change LOC, Focal weakness, Headache. Additional Review of Systems Ears/Nose/Throat Reports: Sore throat. Denies: Nasal congestion, Nose bleeding. Hematologic Denies: Bleeding, Bruising. Portions of this section were scribed by Ines Marie on 04/11/19 at 2216 Past Medical History - Adult Stated Complaint CHEST PAIN, DIZZINESS Allergies Coded Allergies: No Known Allergies (03/02/19) Home Medications Reported Medications No Known Home Medications Review of Nursing Notes Rev avail, and agree Pt reports no significant: Past medical history, Past surgical history Smoking status for patients 13 years old or older: Current every day smoker Portions of this section were scribed by Ines Marie on 04/11/19 at 2216 Physical Exam Vital Signs Vital Signs First Documented: Result Date Time Pulse Ox 98 04/11 2153 B/P 140/79 04/11 2153 B/P Mean 99 04/11 2153 Temp 98.2 04/11 2153 Pulse 108 04/11 215 Resp 19 04/11 2153 Last Documented: Result Date Time Pulse Ox 99 04/11 2300 B/P 118/63 04/11 2300 B/P Mean 81 04/11 230 Temp 98.0 04/11 2300 Pulse 99 04/11 2300 Resp 19 04/11 2300 Review of Vital Signs Reviewed Focused PE General/Const General/Const Awake, Alert, Well developed Eyes Eyes PERRL, No periorbital swelling, Conjunctiva NL MS Neck Neck No adenopathy, No JVD, Thyroid NL, No tracheal deviation Resp/Chest Respiratory/Chest Breath sounds NL, Breath sounds = bilat, No respiratory distress Cardiovascular Cardiovascular Regular rhythm, Heart sounds NL, Cap refill not delayed, Pulses = bilaterally Heart Rate/Rhythm Tachycardia. Abdomen/GI Abdomen/GI Soft, Non-tender, No guarding, BS normoactive, No distention MS Lower Extrem Lower Ext/Pelvis/MS No swelling, Non-tender Skin Skin Color NL, Warm, Dry Neurologic Neurologic Oriented X3, Speech NL Additional PE Ears/Nose/Throat Ears/Nose/Throat Airway patent, Mucous membranes moist, Pharynx NL Portions of this section were scribed by Ines Marie on 04/11/19 at 2216 Interpretation Diagnostics Lab Results Interpretation Results Laboratory Tests 04/11/192218: [Embedded Image Not Available] Laboratory Tests: 04/11 Chemistry Sodium (134.0 - 147.0 mmol/l) 137 [...] (Auto) (23.0 - 38.0 %) 7.4 L Winston % (Auto) (1.0 - 10.0 %) 4.7 Eos % (Auto) (1.0 - 5.0 %) 0.8 L Baso % (Auto) (0.0 - 1.0 %) 0.3 Neut # (Auto) (2.4 - 6.3 K/mm3) 10.8 H Lymph # (Auto) (1.2 - 4.0 K/mm3) 0.9 L Winston # (Auto) (0.0 - 0.6 K/mm3) 0.6 Eos # (Auto) (0.0 - 0.7 K/MM3) 0.1 Baso # (Auto) (0.0 - 0.2 K/mm3) 0.0 Immature Gran % (0.0 - 0.4 %) 0.3 Immature Gran # (0.00 - 0.07 x10 3/uL) 0.04 Recent Impressions: RADIOLOGY - XR CHEST 1 V 04/11 2251 Report Impression - Status: SIGNED Entered: 04/11/2019 2308 IMPRESSION: No active pulmonary findings. Impression By: [email or web address] - Hany Arcos M.D. Lab Imaging Statement Laboratory radiographic studies reviewed and considered in the medical decision-making. Point of Care Testing Pulse Oximetry Pulse Ox % 98 On: Room air Interpretation Interpreted by me, Pulse oximetry normal Time 215 ECG #1 Interpretation ECG Documented in MUSE Yes Date 04/11/19 Time 2150 Interpreted by ED physician NL ECG Interpretation Normal sinus rhythm, No STEMI, Normal QRS, Normal ST waves , Normal axis, Normal intervals Rate 109 Rhythm Tachycardia Radiography X-Ray Chest View 1 view Interpretation/Wet Read by Interpret - Radiologist Reviewed by ED physician Portions of this section were scribed by Ines Marie on 04/11/19 at 2325 Re-Evaluation MDM Re-Evaluation/Progress #1 Text/Dict Note HR improved to 97 BPM. Time of Re-Eval 2324 Re-Eval Status Improved Eval Following Treatment Pt. feels better Plan Post Re-Eval Plan discharge ED Course Medication(s) Ordered Medication(s) Ordered: Central Nervous System Agents Sig/Dora Start time Last Medication Dose Route Stop Time Status Admin Ketorolac 30 MG X1ED STA 04/11 2212 DC 04/11 Tromethamine IV 04/11 Portions of this section were scribed by Ines Marie on 04/11/19 at 2325 Patient Discharge Departure Vital Signs/Condition Vital Signs First Documented: Result Date Time Pulse Ox 98 04/11 2153 B/P 140/79 04/11 2153 B/P Mean 99 04/11 2153 Temp 98.2 04/11 2153 Pulse 108 04/11 2153 Resp 19 04/11 2153 Last Documented: Result Date Time Pulse Ox 99 04/11 2300 B/P 118/63 04/11 2300 B/P Mean 81 04/11 2300 Temp 98.0 04/11 2300 Pulse 99 04/11 2300 Resp 19 04/11 2300 All vital signs available at the time of this entry have been reviewed. Condition Stable Clinical Impression Clinical Impression Primary Impression: Chest wall pain Secondary Impressions: Dizziness Disposition Decision Discharge )( Discharged to Home Yes )( Time 2325 )( Date 04/11/19 Discharge/Care Plan Counseled Regarding Lab results, Imaging studies, Need for follow-up, Smoking cessation, When to return to ED Quality Measures 12-Lead ECG for CP Performed documented Smoking Cessation Screened, tobacco user, Tobacco cess intervention Supervising Physician Note Scribe Statement Ines Marie, 04/11/192217, scribing for and in the presence of Dr. Kim. Signed By: Ines Marie, 04/11/192217 Provider Scribed Statement I personally performed the services described in this documentation and reviewed the documentation that was dictated to the scribe(s) in my presence, and it accurately records my words and actions. Addison Kim, 04/12/19 Portions of this section were scribed by Ines Marie on 04/11/19 at 2325 at 0439 RPT #:[id number] END OF REPORT [facility] 2019-03-02 23:44:00 [facility] ([facility]) EMERGENCY PROVIDER REPORT REPORT#:[id number] REPORT STATUS: Signed DATE:03/02/19 TIME: 2343 PATIENT: BJORN TESAFYE UNIT #: [id number] ROOM/BED: AGE: 23 SEX: M PCP PHYS: No Primary or Family Physician SERVICE AUTHOR: Tracey Allen DEAN * ALL edits or amendments must be made on the electronic/computer document * Tracey Allen 03/02/19 2344: HPI-Chest Pain Under 40 General Confirmed Patient Yes Patient Type Existing patient Initial Greet Date/Time 03/02/192324 Assumed Care at Time 2330 PCP None Presentation Chief Complaint Chest pain Hx Obtained From Patient Sudden in Onset? Yes Onset Occurred Today, Just prior to arrival Symptom Duration Constant Location Chest L Quality Sharp Severity: Onset Pain level 7 out of 10 Severity: Current Pain level 7 out of 10 Context Similar Sx Previous Yes Free Text HPI Notes Free Text HPI Notes Patient is a 23 year old male that presents with left sided chest painx 30 min. Patient states that he was in a recliner when he felt a sharp pain to the left side of chest. Does not worsen with inspirations. Patient states this has happened 1 month ago and resolved Risk-Chest Pain Under 40 Risk Stratification )( Coronary Artery Disease Smoking )( Pulmonary Embolism Risk factors reviewed, No risk factors )( HEART for MACE )( HEART for MACE Response Value History Low index of suspicion 0 ECG Interpretation Normal ECG 0 Age Age under 45 0 Risk Factors for CAD 1-2 CAD risk factors 1 Troponin 1 to 3x NL troponin 1 Total 2 Review of Systems ROS Statements All systems rev neg except as marked. Complete sys rev neg except as marked. Focused Review of Systems Constitutional Denies: Chills, Fever, Malaise, Weakness - generalized. Respiratory Denies: Cough, non-productive, Cough, productive, Pleuritic pain, Shortness of breath, Wheezing. Cardiovascular Reports: Chest pain. Denies: Dyspnea on exertion, Palpitations, Syncope. GI Reports: Vomiting. Denies: Abdominal pain, Constipation, Nausea. Musculoskeletal Denies: Back pain, Extremity pain, Extremity swelling, Thoracic pain. Skin Denies: Abrasion, Contusion, Itching, Laceration. Neurologic Denies: Abnormal movement, Bladder dysfunction, Bowel dysfunction, Change LOC, Confusion, Dizziness, Shaking, Slurred speech, Syncope. Psychiatric Denies: Anxiety, Change mental status, Confusion, Delusional. Additional Review of Systems Eyes Denies: Blurred bilat, Diplopia, Discharge bilat, Eye pain bilat, Photophobia. Past Medical History - Adult Stated Complaint "I'M HAVING CHEST PAIN AND MY LEFT ARM IS NUMB." Allergies Coded Allergies: No Known Allergies (03/02/19) Home Medications Reported Medications No Known Home Medications Review of Nursing Notes Rev avail, and agree Smoking status for patients 13 years old or older: Current every day smoker Physical Exam Vital Signs Vital Signs Review of Vital Signs Reviewed Focused PE General/Const General/Const Awake, Alert, No acute distress, Well appearing, Well developed , Well hydrated, Well nourished, Cooperative, Not toxic appearing Eyes Eyes Atraumatic, PERRL, No periorbital redness, No periorbital swelling MS Neck Neck Atraumatic, Supple, No meningismus Resp/Chest Respiratory/Chest Atraumatic, Breath sounds NL, Breath sounds = bilat, No respiratory distress, No wheezing Cardiovascular Cardiovascular Heart rate NL, Regular rhythm, Heart sounds NL, No murmurs, Cap refill not delayed Abdomen/GI Abdomen/GI Atraumatic, Soft, Non-tender, BS normoactive MS Back Back Atraumatic, Inspection NL, Full range of motion MS Lower Extrem Lower Ext/Pelvis/MS Atraumatic, Inspection NL, Full range of motion Skin Skin Atraumatic, Color NL, No rash, Intact Neurologic Neurologic Oriented X3, Speech NL, No motor deficits, Memory NL Psychiatric Psychiatric Affect NL, Mood NL, Not suicidal Interpretation Diagnostics Lab Results Interpretation Results Laboratory Tests 03/02/19 8361: [Embedded Image Not Available] Laboratory Tests: 03/02 03/02 2339 2337 Chemistry Sodium [...] % (Auto) (23.0 - 38.0 %) 31.4 Winston % (Auto) (1.0 - 10.0 %) 6.3 Eos % (Auto) (1.0 - 5.0 %) 3.0 Baso % (Auto) (0.0 - 1.0 %) 0.5 Neut # (Auto) (2.4 - 6.3 K/mm3) 5.8 Lymph # (Auto) (1.2 - 4.0 K/mm3) 3.1 Winston # (Auto) (0.0 - 0.6 K/mm3) 0.6 Eos # (Auto) (0.0 - 0.7 K/MM3) 0.3 Baso # (Auto) (0.0 - 0.2 K/mm3) 0.1 Immature Gran % (0.0 - 0.4 %) 0.2 Immature Gran # (0.00 - 0.07 x10 3/uL) 0.02 Recent Impressions: RADIOLOGY - XR CHEST 1 V 03/02 2340 Report Impression - Status: SIGNED Entered: 03/03/2019 0007 IMPRESSION: No radiographic evidence of acute cardiopulmonary process. Impression By: Ketty - Levon Thomas M.D. Lab Imaging Statement Laboratory radiographic studies reviewed and considered in the medical decision-making. Point of Care Testing Pulse Oximetry Pulse Ox % 100 On: Room air Rhythm Strip Interpretation Time 2346 Rate 79 Rhythm Strip Interpretation Normal sinus rhythm Re-Evaluation MDM Free Text MDM Notes Free Text MDM Notes 0015- Discussed all results with oanh Duque to DC home Differential Diagnosis Differential Diagnosis Acute coronary syndrome, Acute myocardial infarct, Anxiety disorder, Bronchitis, Chest pain, Chest pain, acute, Contusion Patient Discharge Departure Vital Signs/Condition Vital Signs Condition Stable Clinical Impression Clinical Impression Primary Impression: Chest pain, atypical Disposition Decision Discharge )( Discharged to Home Yes )( Time 0015 )( Date 03/03/19 Discharge/Care Plan Counseled Regarding Diagnosis, Lab results, Medication changes, Prescriptions, Need for follow-up, Smoking cessation, When to return to ED Prescriptions naproxen Prescriptions Reviewed Risks, Benefits Discharge Note I have spoken with the patient and/or caregivers. I have explained the patient's condition, diagnoses and treatment plan based on the information available to me at this time. I have answered the patient's and/or caregiver's questions and addressed any concerns. The patient and/or caregivers have as good an understanding of the patient's diagnosis, condition and treatment plan as can be expected at this point. The vital signs have been stable. The patient's condition is stable and appropriate for discharge from the emergency department. The patient will pursue further outpatient evaluation with the primary care physician or other designated or consulting physician as outlined in the discharge instructions. The patient and/or caregivers are agreeable to this plan of care and follow-up instructions have been explained [...] a call to 911. Arron Polk 03/03/19 0020: Physical Exam Vital Signs Vital Signs First Documented: Result Date Time Pulse Ox 100 03/02 2319 B/P 134/67 /2318 B/P Mean 89 03/02 2319 O2 Delivery Room air 03/02 2319 Temp 37.2 03/02 2319 Pulse 67 03/02 2319 Resp 16 03/02 2319 Last Documented: Result Date Time Pulse Ox 97 03/03 0045 B/P 137/77 / 0045 B/P Mean 97 03/03 0045 O2 Delivery Room air 03/03 0045 Temp 37.2 03/03 0045 Pulse 70 03/03 0045 Resp 24 03/03 0045 Interpretation Diagnostics Lab Results Interpretation Results Patient Discharge Departure Vital Signs/Condition Vital Signs First Documented: Result Date Time Pulse Ox 100 03/02 2319 B/P 134/67 03/02 231 B/P Mean 89 /9 O2 Delivery Room air 03/02 2319 Temp 37.2 03/02 2319 Pulse 67 / 2319 Resp 16 03/02 2319 Last Documented: Result Date Time Pulse Ox 97 03/03 0045 B/P 137/77 / 0045 B/P Mean 97 03/03 0045 O2 Delivery Room air 03/03 0045 Temp 37.2 03/03 0045 Pulse 70 / 0045 Resp 24 03/03 0045 All vital signs available at the time of this entry have been reviewed. Supervising Physician Note MidLv Saw Pt Alone I have reviewed the PA/DEAN's note and plan of care. I was available for consultation as needed at all times during the patient's visit in the emergency department. I agree with the clinical impression, plan and disposition. at 0157 RPT #:[id number] END OF REPORT [facility] 2019-03-02 23:44:00 [facility] ([facility]) EMERGENCY PROVIDER REPORT REPORT#:[id number] REPORT STATUS: Signed DATE:03/02/19 TIME: 2343 PATIENT: BJORN TESFAYE UNIT #: [id number] ROOM/BED: AGE: 23 SEX: M PCP PHYS: No Primary or Family Physician SERVICE AUTHOR: Tracey Allen NP * ALL edits or amendments must be made on the electronic/computer document * Tracey Allen 03/02/19 2344: HPI-Chest Pain Under 40 General Confirmed Patient Yes Patient Type Existing patient Assumed Care at Time 2330 PCP None Presentation Chief Complaint Chest pain Hx Obtained From Patient Sudden in Onset? Yes Onset Occurred Today, Just prior to arrival Symptom Duration Constant Location Chest L Quality Sharp Severity: Onset Pain level 7 out of 10 Severity: Current Pain level 7 out of 10 Context Similar Sx Previous Yes Free Text HPI Notes Free Text HPI Notes Patient is a 23 year old male that presents with left sided chest painx 30 min. Patient states that he was in a recliner when he felt a sharp pain to the left side of chest. Does not worsen with inspirations. Patient states this has happened 1 month ago and resolved Risk-Chest Pain Under 40 Risk Stratification )( Coronary Artery Disease Smoking )( Pulmonary Embolism Risk factors reviewed, No risk factors )( HEART for MACE )( HEART for MACE Response Value History Low index of suspicion 0 ECG Interpretation Normal ECG 0 Age Age under 45 0 Risk Factors for CAD 1-2 CAD risk factors 1 Troponin 1 to 3x NL troponin 1 Total 2 Review of Systems ROS Statements All systems rev neg except as marked. Complete sys rev neg except as marked. Focused Review of Systems Constitutional Denies: Chills, Fever, Malaise, Weakness - generalized. Respiratory Denies: Cough, non-productive, Cough, productive, Pleuritic pain, Shortness of breath, Wheezing. Cardiovascular Reports: Chest pain. Denies: Dyspnea on exertion, Palpitations, Syncope. GI Reports: Vomiting. Denies: Abdominal pain, Constipation, Nausea. Musculoskeletal Denies: Back pain, Extremity pain, Extremity swelling, Thoracic pain. Skin Denies: Abrasion, Contusion, Itching, Laceration. Neurologic Denies: Abnormal movement, Bladder dysfunction, Bowel dysfunction, Change LOC, Confusion, Dizziness, Shaking, Slurred speech, Syncope. Psychiatric Denies: Anxiety, Change mental status, Confusion, Delusional. Additional Review of Systems Eyes Denies: Blurred bilat, Diplopia, Discharge bilat, Eye pain bilat, Photophobia. Past Medical History - Adult Stated Complaint "I'M HAVING CHEST PAIN AND MY LEFT ARM IS NUMB." Allergies Coded Allergies: No Known Allergies (03/02/19) Home Medications Reported Medications No Known Home Medications Review of Nursing Notes Rev avail, and agree Smoking status for patients 13 years old or older: Current every day smoker Physical Exam Vital Signs Vital Signs First Documented: Result Date Time Pulse Ox 100 [...] 0045 Review of Vital Signs Reviewed Focused PE General/Const General/Const Awake, Alert, No acute distress, Well appearing, Well developed , Well hydrated, Well nourished, Cooperative, Not toxic appearing Eyes Eyes Atraumatic, PERRL, No periorbital redness, No periorbital swelling MS Neck Neck Atraumatic, Supple, No meningismus Resp/Chest Respiratory/Chest Atraumatic, Breath sounds NL, Breath sounds = bilat, No respiratory distress, No wheezing Cardiovascular Cardiovascular Heart rate NL, Regular rhythm, Heart sounds NL, No murmurs, Cap refill not delayed Abdomen/GI Abdomen/GI Atraumatic, Soft, Non-tender, BS normoactive MS Back Back Atraumatic, Inspection NL, Full range of motion MS Lower Extrem Lower Ext/Pelvis/MS Atraumatic, Inspection NL, Full range of motion Skin Skin Atraumatic, Color NL, No rash, Intact Neurologic Neurologic Oriented X3, Speech NL, No motor deficits, Memory NL Psychiatric Psychiatric Affect NL, Mood NL, Not suicidal Interpretation Diagnostics Lab Results Interpretation Results Laboratory Tests 03/02/192336: [Embedded Image Not Available] Laboratory Tests: 03/029 2337 Chemistry Sodium (134.0 - 147.0 mmol/l) [...] Coagulation INR (0.89 - 1.14) 0.9 PTT ([place]) (25.86 - 36.07 SECONDS) 31.20 PT Patient/Control [...] % (Auto) (23.0 - 38.0 %) 31.4 Winston % (Auto) (1.0 - 10.0 %) 6.3 Eos % (Auto) (1.0 - 5.0 %) 3.0 Baso % (Auto) (0.0 - 1.0 %) 0.5 Neut # (Auto) (2.4 - 6.3 K/mm3) 5.8 Lymph # (Auto) (1.2 - 4.0 K/mm3) 3.1 Winston # (Auto) (0.0 - 0.6 K/mm3) 0.6 Eos # (Auto) (0.0 - 0.7 K/MM3) 0.3 Baso # (Auto) (0.0 - 0.2 K/mm3) 0.1 Immature Gran % (0.0 - 0.4 %) 0.2 Immature Gran # (0.00 - 0.07 x10 3/uL) 0.02 Recent Impressions: RADIOLOGY - XR CHEST 1 V 03/02 2340 Report Impression - Status: SIGNED Entered: 03/03/2019 0007 IMPRESSION: No radiographic evidence of acute cardiopulmonary process. Impression By: ManjulaMKamryn - Levon Thomas M.D. Lab Imaging Statement Laboratory radiographic studies reviewed and considered in the medical decision-making. Point of Care Testing Pulse Oximetry Pulse Ox % 100 On: Room air Rhythm Strip Interpretation Time 2346 Rate 79 Rhythm Strip Interpretation Normal sinus rhythm Re-Evaluation MDM Free Text MDM Notes Free Text MDM Notes 0015- Discussed all results with oanh Duque to [facility] Differential Diagnosis Differential Diagnosis Acute coronary syndrome, Acute myocardial infarct, Anxiety disorder, Bronchitis, Chest pain, Chest pain, acute, Contusion Patient Discharge Departure Vital Signs/Condition Vital Signs First Documented: Result Date Time Pulse Ox 100 [...] entry have been reviewed. Condition Stable Clinical Impression Clinical Impression Primary Impression: Chest pain, atypical Disposition Decision Discharge )( Discharged to Home Yes )( Time 0015 )( Date 03/03/19 Discharge/Care Plan Counseled Regarding Diagnosis, Lab results, Medication changes, Prescriptions, Need for follow-up, Smoking cessation, When to return to ED Prescriptions naproxen Prescriptions Reviewed Risks, Benefits Discharge Note I have spoken with the patient and/or caregivers. I have explained the patient's condition, diagnoses and treatment plan based on the information available to me at this time. I have answered the patient's and/or caregiver's questions and addressed any concerns. The patient and/or caregivers have as good an understanding of the patient's diagnosis, condition and treatment plan as can be expected at this point. The vital signs have been stable. The patient's condition is stable and appropriate for discharge from the emergency department. The patient will pursue further outpatient evaluation with the primary care physician or other designated or consulting physician as outlined in the discharge instructions. The patient and/or caregivers are agreeable to this plan of care and follow-up instructions have been explained [...] a call to 911. Arron Polk 03/03/19 0020: HPI-Chest Pain Under 40 General Initial Greet Date/Time 03/02/192324 Presentation )( Migration/Movement None Physical Exam Vital Signs Vital Signs Interpretation Diagnostics Lab Results Interpretation Results Patient Discharge Departure Vital Signs/Condition Vital Signs Supervising Physician Note MidLv Saw Pt Alone I have reviewed the PA/DEAN's note and plan of care. I was available for consultation as needed at all times during the patient's visit in the emergency department. I agree with the clinical impression, plan and disposition. at [phone] at [phone] RPT #:[id number] END OF REPORT [facility]
== END 2024-06-09 21:33 | disposition home or self-care (01) ==
LOC: ER 21:07
DX: L08.9 Local infection of the skin and subcutaneous tissue, unspecified (principal)
CPT/HCPCS: 99283

== ENCOUNTER 2024-10-14 22:54 | Emergency (ER) | payer SELFPAY ==
[2024-10-14] MEDS ORDERED: TETRACAINE HCL 0.5% 4ML OPTH ONE (23:15)
--- NOTE | 2024-10-14 23:23 | EDPHYS ---
Physician Documentation [facility] Name: Ray Malcolm Age: 29 yrs Sex: Male : 1995 Arrival Date: 10/14/2024 Time: 22:54 Bed 14 Private MD: ED Physician Singh Hogan HPI: 10/14 23:15 This 29 yrs old Male presents to ER via Unassigned with complaints of Foreign Body In sb4 Eye. 23:15 The patient is experiencing foreign body sensation. 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 he tried to remove it via irrigation and with tweezers, unsuccessfully. reports pain/FB sensation. Historical: - Allergies: 23:22 No Known Allergies; jj7 - PMHx: 23:22 None; jj7 - PSHx: 23:22 None; jj7 - Immunization history:: Adult Immunizations not up to date, Client reports receiving the 2nd dose of the Covid vaccine, Flu vaccine is not up to date. - Infectious Disease History:: Denies. - Social history:: Smoking status: Patient reports the use of cigarette tobacco products, smokes one pack cigarettes per day. Patient uses alcohol, occasionally. Patient/guardian denies using street drugs, IV drugs. ROS: 23:24 Constitutional: Negative for fever, chills, and weight loss, sb4 23:24 Eyes: Positive for foreign body sensation, pain, of the iris of left eye, 23:24 All other systems are negative, Exam: 23:24 Visual Acuity: Visual acuity is within normal limits. sb4 23:24 Constitutional: This is a well developed, well nourished patient who is awake, alert, and in no acute distress. Head/Face: Normocephalic, atraumatic. ENT: Mucous membranes moist. Respiratory: No increased work of breathing, no retractions or nasal flaring. Skin: Warm, dry with normal turgor. Normal color with no rashes, no lesions, and no evidence of cellulitis. 23:24 Eyes: Periorbital structures: appear normal, Pupils: equal, round, and reactive to light and accomodation, Extraocular movements: intact throughout, Corneas: foreign body, on the left, at 3 o'clock, a piece of metal, Vital Signs: 22:59 BP 135 / 79; Pulse 77; Resp 16; Temp 98.4; Pulse Ox 98% ; Weight 102.06 kg; Height 5 jj7 ft. 6 in. ; 23:35 BP 132 / 78; Pulse 78; Resp 18; Temp 98; Pulse Ox 100% ; kj2 22:59 Body Mass Index 36.32 (102.06 kg, 167.64 cm) jj7 Procedures: 23:24 Foreign Body Removal: a piece of metal, from the left eye, conjunctiva by using a sb4 cotton-tipped swab, needle, The patient tolerated the removal well. Eye Exam: Tetracaine. MDM: 23:04 Medical Screening Exam initiated sb4 23:24 Data reviewed: vital signs, nurses notes, and as a result, I will discharge patient. sb4 Counseling: I had a detailed discussion with the patient and/or guardian regarding the historical points, exam findings, and any diagnostic results supporting the discharge/admit diagnosis, the need for outpatient follow up, an opthalmologist, to return to the emergency department if symptoms worsen or persist or if there are any questions or concerns that arise at home. Administered Medications: 23:46 Drug: Tetracaine Ophthalmic Drops 0.5 % 1 drops Ophthalmic once Route: Ophthalmic; kj2 Site: left eye; 23:47 Follow up: Response: No adverse reaction kj2 23:46 Drug: ERYTHromycin Ophthalmic Ointment 1 application Ophthalmic once Route: Ophthalmic; kj2 Site: left eye; 23:47 Follow up: Response: No adverse reaction kj2 Disposition: 10/15 23:13 Co-signature as Attending Physician, Singh Hogan MD I agree with the assessment sp4 and plan of care. I reviewed the patient's care provided by Advanced Practice Provider \T\ agree w/ the diagnosis \T\ care plan. I personally saw the pt \T\ performed a substantive portion of the visit, incldng all aspects of the (History/Exam/Medical Decision Making). Disposition Summary: 10/14/24 23:22 Discharge Ordered Notes: Location: Home sb4 Problem: new sb4 Symptoms: have improved sb4 Condition: Stable sb4 Diagnosis - Foreign body in cornea, left eye sb4 Followup: sb4 - With: Christian Blanchard MD - When: 1 week - Reason: Recheck today's complaints, Re-evaluation by your physician Discharge Instructions: - Discharge Summary Sheet sb4 - Corneal Abrasion, [id number] sb4 - Eye Foreign Body, [id number] sb4 Forms: - Antibiotic Education sb4 - Patient Portal Instructions sb4 - Leadership Thank You Letter sb4 Prescriptions: - Erythromycin 5 mg/gram (0.5 %) Ophthalmic ointment - apply 1 ribbon OPHTHALMIC route every 8 hours LEFT EYE; 1 Applicator; Refills: sb4 0, Product Selection Permitted Signatures: Castillo Fry, RN RN jj7 Georgina Luo PA-C PABeck sb4 Singh Hogan MD MD sp4 Diana Jimenez RN RN kj2
--- NOTE | 2024-10-14 23:23 | ER ---
Nurse's Notes [facility] Name: Ray Malcolm Age: 29 yrs Sex: Male : 1995 Arrival Date: 10/14/2024 Time: 22:54 Bed 14 Private MD: Diagnosis: Foreign body in cornea, left eye Presentation: 10/14 22:59 Chief complaint: Patient states: PIECE OF METAL IN LEFT EYE. 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 STATED HE WANTED TO FINISH ALL HIS [employer] STUFF BEFORE HE CAME IN. Coronavirus screen: At this time, the client does not indicate any symptoms associated with coronavirus-19. Ebola Screen: No symptoms or risks identified at this time. Initial Sepsis Screen: Does the patient meet any 2 criteria? No. Patient's initial sepsis screen is negative. Does the patient have a suspected source of infection? No. Patient's initial sepsis screen is negative. Risk Assessment: Do you want to hurt yourself or someone else? Patient reports no desire to harm self or others. Onset of symptoms was October 14, 2024. 22:59 Method Of Arrival: Ambulatory [facility] 22:59 Acuity: CJ 4 jj7 Triage Assessment: 22:59 General: Appears in no apparent distress. uncomfortable, Behavior is calm, cooperative, jj7 appropriate for age. Pain: Complains of pain in left eye. EENT: Eyes are tearing on outer aspect of conjuctiva of left eye with foreign body noted in outer aspect of conjuctiva of left eye and iris of left eye. Historical: - Allergies: 23:22 No Known Allergies; jj7 - PMHx: 23:22 None; jj7 - PSHx: 23:22 None; jj7 - Immunization history:: Adult Immunizations not up to date, Client reports receiving the 2nd dose of the Covid vaccine, Flu vaccine is not up to date. - Infectious Disease History:: Denies. - Social history:: Smoking status: Patient reports the use of cigarette tobacco products, smokes one pack cigarettes per day. Patient uses alcohol, occasionally. Patient/guardian denies using street drugs, IV drugs. Screenin:20 [facility] ED Fall Risk Assessment (Adult) History of falling in the last 3 months, kj2 including since admission No falls in past 3 months (0 pts) Confusion or Disorientation No (0 pts) Intoxicated or Sedated No (0 pts) Impaired Gait No (0 pts) Mobility Assist Device Used No (0 pt) Altered Elimination No (0 pt) Score/Fall Risk Level 0 - 2 = Low Risk Maintained a safe environment, Hourly rounding (assess needs \T\ fall precautionary measures) done. Abuse screen: Denies threats or abuse. Denies injuries from another. Nutritional screening: No deficits noted. Tuberculosis screening: No symptoms or risk factors identified. Assessment: 23:20 General: Appears in no apparent distress. Behavior is calm, cooperative. Pain: kj2 Complains of pain in left eye and iris of left eye Pain currently is 4 out of 10 on a pain scale. Neuro: Level of Consciousness is awake, alert, obeys commands, Oriented to person, place, time, situation. Cardiovascular: Patient's skin is warm and dry. Respiratory: Airway is patent Respiratory effort is even, unlabored. GI: : No signs and/or symptoms were reported regarding the genitourinary system. Urine is cloudy. 23:37 Reassessment: Patient appears in no apparent distress at this time. Patient and/or kj2 family updated on plan of care and expected duration. Pain level reassessed. Patient is alert, oriented x 3, equal unlabored respirations, skin warm/dry/pink. Vital Signs: 22:59 BP 135 / 79; Pulse 77; Resp 16; Temp 98.4; Pulse Ox 98% ; Weight 102.06 kg; Height 5 jj7 ft. 6 in. ; 23:35 BP 132 / 78; Pulse 78; Resp 18; Temp 98; Pulse Ox 100% ; kj2 22:59 Body Mass Index 36.32 (102.06 kg, 167.64 cm) jj7 ED Course: 22:57 Patient arrived in ED. jj6 22:59 Arm band placed on right wrist. Patient placed in an exam room, on a stretcher. jj7 23:04 [facility] sb4 23:04 Singh Hogan MD is Attending Physician. sb4 23:11 Diana Jimenez, FERNANDO is Primary Nurse. kj2 23:20 Patient has correct armband on for positive identification. Bed in low position. Call kj2 light in reach. Provided Education on: CALL LIGHT. 23:21 Triage completed. jj7 23:21 Jamie Blanchard MD is Referral Physician. sb4 23:21 Christian Blanchard MD is Referral Physician. sb4 23:22 Referral Physician role handed off by Jamie Blanchard MD sb4 23:36 No provider procedures requiring assistance completed. Patient did not have IV access kj2 during this emergency room visit. Administered Medications: 23:46 Drug: Tetracaine Ophthalmic Drops 0.5 % 1 drops Ophthalmic once Route: Ophthalmic; kj2 Site: left eye; 23:47 Follow up: Response: No adverse reaction kj2 23:46 Drug: ERYTHromycin Ophthalmic Ointment 1 application Ophthalmic once Route: Ophthalmic; kj2 Site: left eye; 23:47 Follow up: Response: No adverse reaction kj2 Medication: 23:36 VIS not applicable for this client. kj2 Outcome: 23:22 Discharge ordered by MD. sb4 23:37 Discharged to home ambulatory, kj2 23:37 Condition: stable 23:37 Discharge instructions given to patient, Instructed on discharge instructions, follow up and referral plans. medication usage, Demonstrated understanding of instructions, follow-up care, medications, Prescriptions given X 1, 23:47 Patient left the ED. kj2 Signatures: Yamileth Hernandez jj6 Castillo Fry, RN RN jj7 Georgina Luo, PA-C PA-C sb4 Diana Jimenez, RN RN kj2 Corrections: (The following items were deleted from the chart) 23:35 23:20 : Urine is cloudy, kj2 kj2
[2024-10-14] MEDS ORDERED: ERYTHROMYCIN 3.5GM OPTH OINT ONE (23:37)
[2024-10-14 23:54] VITALS: BP 132/78; TEMP 98; O2SAT 100
== END 2024-10-14 23:47 | disposition home or self-care (01) ==
LOC: ER 22:54
PROC: 08C9XZZ Extirpation of Matter from Left Cornea, External Approach (ICD-10-PCS; principal; 2024-10-14)
DX: T15.02XA Foreign body in cornea, left eye, initial encounter (principal); W44.D9XA Other magnetic metal objects entering into or through a natural orifice, initial encounter; Y93.89 Activity, other specified
CPT/HCPCS: 99283